=== PATIENT | male | born 1960 | race Caucasian/White ===

== ENCOUNTER 2022-09-23 07:57 | Inpatient (IN) ==
--- NOTE | 2022-09-23 09:00 | XRay Report ---
XR chest 1V portable HISTORY: 62 years-old Male fluid overload acute shortness of breath COMPARISON: None TECHNIQUE: AP view of the chest FINDINGS: Cardiac silhouette is mildly enlarged. No pneumothorax, pleural effusion, airspace consolidation or p ulmonary edema. Degenerative changes of the shoulders and spine. IMPRESSION: No acute process. ACT 112: Negative or not required by law. The above report was generated using voice recognition software. It may contain grammatical, syntax o r spelling errors. Electronically signed by: Daryl Miranda M.D. 09/23/2022 8:59 AM
[2022-09-23] MEDS ORDERED: FUROSEMIDE 40 MG/4 ML VIAL IV STA (09:13)
[2022-09-23 09:17] LABS: Basophils # (auto) 0.07 K/uL (0-0.2); Basophils % (auto) 0.8 %; Eosinophils # (auto) 0.22 K/uL (0-0.50); Eosinophils % (auto) 2.6 %; Hematocrit (blood only) 24.7 % (42.0-52.0); Immature Granulocytes # (auto) 0.04 K/uL (0.01-0.20); Immature Granulocytes % (auto) 0.5 %; Lymphocytes # (auto) 1.07 K/uL (1.2-3.4); Lymphocytes % (auto) 12.6 %; Mean Corpuscular Hemoglobin 26.7 pg (25.0-34.0); Mean Corpuscular Hgb Conc 32.4 g/dL (32.0-36.0); Mean Corpuscular Volume 82.3 fL (80.0-100.0); Monocytes # (auto) 1.06 K/uL (0.11-0.59); Monocytes % (auto) 12.5 %; Platelet Count 133 K/uL (130-400); RDW Coefficient of Variation 25.9 % (11.5-14.5); RDW Standard Deviation 76.2 fL (36.4-46.3); White Blood Count 8.46 K/ul (4.8-10.8)
[2022-09-23 09:21] LABS: Albumin Globulin Ratio 0.7 (0.9-2); Albumin Level 2.3 gm/dl (3.4-5.0); BUN Creatinine Ratio 15.4 (10-20); Bilirubin,Total 2.5 mg/dl (0.2-1.0); Globulin 3.4 gm/dl (2.5-4.0); Potassium 3.5 mmol/L (3.5-5.1); Total Protein 5.7 gm/dl (6.0-8.3)
[2022-09-23 09:45] LABS: Acanthocytes 1+; Anisocytosis Present; Echinocytes 1+
--- NOTE | 2022-09-23 09:50 | Emergency Department Note ---
Impression & Plan Decompensated hepatic cirrhosis, Dependent edema ED Provider Note CHIEF COMPLAINT: Swollen scrotum HISTORY OF PRESENT ILLNESS: This 62-year-old male patient with past medical history of alcoholic cirrhosis and ascites presents to the emergency department with complaints of scrotal swelling. The patient states he was up on a ladder for 4 hours yesterday attempting to hang spot lights. He did not think anything was unusual however upon getting undressed noticed significant scrotal edema. He denies any pain in the testicles or groin. Patient states he does normally take furosemide and spironolactone but was out of them for 2 weeks. He did restart them 48 hours ago. He denies fevers, abdominal pain, vomiting or diarrhea. He has not had any difficulty urinating. REVIEW OF SYSTEMS: A review of systems was performed with positives and pertinent negatives listed in the history of present illness. 10 systems were reviewed and are otherwise negative. ALLERGIES: see below MEDICATIONS: see below PMH: see below SOCIAL HISTORY: see below DDx: Decompensated cirrhosis of the liver, portal vein thrombus, DVT, fluid overload, congestive heart failure, testicular torsion, testicular mass, hydrocele among others PHYSICAL EXAM: Vital signs reviewed. General: Well-appearing 62 yo male, in no significant distress. HEENT: No scleral icterus, PERRLA, neck supple. Atraumatic. Cardiovascular: Regular rate and rhythm, no extra sounds. Pulmonary: Clear to auscultation bilaterally, normal work of breathing. Abdomen: Soft, nontender, distended, positive bowel sounds. Musculoskeletal: Atraumatic, moderate peripheral edema. : Normal external male genitals with markedly enlarged scrotum/edema. Nontender Neurologic: Patient awake alert and oriented x 3, speech is clear Skin: Warm, dry, no rash EMERGENCY DEPARTMENT COURSE/MDM: This patient was evaluated and appeared to be in no significant distress. External medical records were reviewed. IV access was obtained and laboratory work was drawn. Patient is noted to be in a normal sinus rhythm on the cardiac nurse specialist. He was given 40 mg of IV Lasix. Nursing staff said he was "thinking about" a Sweeney catheter. Patient's laboratory work is significant for a hemoglobin of 8, mildly elevated AST/ALT and a bilirubin of 2.5. INR is 1.5. I suspect the patient is suffering from decompensated cirrhosis of the liver secondary to his recent several weeks without his diuretics. Ultrasound of the right upper quadrant was performed to rule out portal vein thrombus which is negative. Ultrasound of the scrotum was also performed and reveals scrotal edema. Please see final read below. Patient was advised of the findings and plan for admission. Hospitalist service was contacted. MONITORING: An order for cardiac monitoring was placed and the patient is noted to be in a NSR at 77 beats per minute. RADIOLOGY: Chest x-ray to my interpretation reveals no focal lung consolidation or failure, otherwise defer to radiology Scrotal and right upper quadrant ultrasound as below. DISPOSITION: Admission Past Med/Surg History Medical History Decompensated hepatic cirrhosis Hx of fracture of patella Iron deficiency anemia Liver cirrhosis Right shoulder injury Surgical History Hx of appendectomy Social History Smoking Status: Never smoker Hx Alcohol Use: No Hx Substance Use: No Preferred Language: Occitan Communication Ability: Effective Assembling Fabricator Required: No Beliefs That Will Affect Care: None Current Living Situation: Family Feels Safe at Home: Yes Safety Concerns: Feels Safe At This Time Assistive Devices: Glasses Allergies Allergies Allergy/AdvReac Type Severity Reaction Status Date / Time No Known Allergies Allergy Verified 08/26/22 10:24 Home Meds Previous Rx's Medication Instructions Recorded furosemide 40 mg tablet 40 mg PO DAILY #30 tabs 09/26/22 spironolactone 100 mg tablet 100 mg PO DAILY #30 tabs 09/26/22 Results & Data (ED) Vital Signs Vital Signs - 24 hr 09/23/22 08:09 09/23/22 10:58 09/23/22 12:01 Temperature 36.6 C Temperature Source Temporal Artery Scan Pulse Rate 76 77 74 Pulse Rate from SpO2 Sensor Respiratory Rate 20 18 Respiratory Effort / Characteristics Non-Labored Spontaneous Respiratory Depth Normal Blood Pressure 127/72 139/77 Blood Pressure Mean 90 97 Pulse Oximetry 99 100 Oxygen Delivery Method Room Air Room Air Sepsis Recent Fever Within 48 Hours No Sepsis New/Unexplained Change in Mental Status N/A Sepsis Action Taken by Nursing No Action Required 09/23/22 12:00 09/23/22 13:02 09/23/22 13:30 Temperature Temperature Source Pulse Rate 74 76 75 Pulse Rate from SpO2 Sensor 74 75 74 Respiratory Rate 14 22 16 Respiratory Effort / Characteristics Respiratory Depth Blood Pressure 151/70 H 119/76 Blood Pressure Mean 97 90 Pulse Oximetry 100 100 100 Oxygen Delivery Method Sepsis Recent Fever Within 48 Hours Sepsis New/Unexplained Change in Mental Status Sepsis Action Taken by Nursing 09/23/22 14:00 Temperature Temperature Source Pulse Rate 72 Pulse Rate from SpO2 Sensor Respiratory Rate 14 Respiratory Effort / Characteristics Respiratory Depth Blood Pressure Blood Pressure Mean Pulse Oximetry 100 Oxygen Delivery Method Sepsis Recent Fever Within 48 Hours Sepsis New/Unexplained Change in Mental Status Sepsis Action Taken by [facility] Medications Current Medication List: was personally reviewed by la Laboratory Data Attestation: I reviewed the patient's lab results. 09/23/22 08:45 09/23/22 08:45 Lab Results 09/23/22 09/23/22 09/23/22 Range/Units 08:45 08:45 08:45 WBC 8.46 (4.8-10.8) K/ul RBC 3.00 L (4.70-6.10) M/uL Hgb 8.0 L (14.0-18.0) g/dl Hct 24.7 L (42.0-52.0) % MCV 82.3 (80.0-100.0) fL MCH 26.7 (25.0-34.0) pg MCHC 32.4 (32.0-36.0) g/dL RDW Std Deviation 76.2 H (36.4-46.3) fL RDW Coeff of Dean 25.9 H (11.5-14.5) % Plt Count 133 (130-400) K/uL MPV 11.0 (9.4-12.4) fL Immature Gran % (Auto) 0.5 % Neut % (Auto) 71.0 % Lymph % (Auto) 12.6 % Mckenzie % (Auto) 12.5 % Eos % (Auto) 2.6 % Baso % (Auto) 0.8 % Neut # (Auto) 6.00 (1.40-6.50) K/uL Lymph # (Auto) 1.07 L (1.2-3.4) K/uL Mckenzie # (Auto) 1.06 H (0.11-0.59) K/uL Eos # (Auto) 0.22 (0-0.50) K/uL Baso # (Auto) 0.07 (0-0.2) K/uL Immature Gran # (Auto) 0.04 (0.01-0.20) K/uL Anisocytosis Present Echinocytes 1+ Acanthocytes (Spur) 1+ PT 15.6 H (9.0-12.0) Seconds INR 1.5 H (0.9-1.1) APTT 31.4 H (21.0-31.0) Seconds PTT Ratio 1.1 Sodium 133 L (136-145) mmol/L Potassium 3.5 (3.5-5.1) mmol/L Chloride 104 (98-107) mmol/L Carbon Dioxide 22 (21-32) mmol/L Anion Gap 7 (3-11) BUN 19 (6-23) mg/dl Creatinine 1.23 (0.6-1.4) mg/dl Est Cr Clr Drug Dosing 87.0 ml/min Est GFR ( Amer) 73.0 ml/min Est GFR (Non-Af Amer) 63.0 ml/min BUN/Creatinine Ratio 15.4 (10-20) Glucose 118 H (70-99(Fasting)) mg/dl Calcium 8.0 L (8.6-10.3) mg/dl Total Bilirubin 2.5 H (0.2-1.0) mg/dl Direct Bilirubin 0.7 H (0-0.2) mg/dl AST 69 H (13-39) U/L ALT 26 (7-52) U/L Alkaline Phosphatase 133 H (34-104) U/L Total Protein 5.7 L (6.0-8.3) gm/dl Albumin 2.3 L (3.4-5.0) gm/dl Globulin 3.4 (2.5-4.0) gm/dl Albumin/Globulin Ratio 0.7 L (0.9-2) Lipase 66 (11-82) U/L Urine Color Urine Appearance (Clear) Urine pH (4.5-7.5) Ur Specific [place] (1.000-1.030) Urine Protein (Negative) Urine Glucose (UA) (Negative) Urine Ketones (Negative) Urine Blood (Negative) Urine Nitrite (Negative) Urine Bilirubin (Negative) Urine Urobilinogen (Negative) Ur Leukocyte Esterase (Negative) Urine WBC (Auto) (0-5) /hpf Urine RBC (Auto) (0-4) /hpf U Hyaline Cast (Auto) (0-5) /lpf U Epithel Cells (Auto) (0-5) /lpf Urine Bacteria (Auto) (Negative) Lyme Disease IgG Ab (Negative) Lyme Disease IgM Ab (Negative) SARS-CoV-2, RNA, NAAT (NEGATIVE) 09/23/22 09/23/22 09/23/22 Range/Units 08:45 08:50 10:20 WBC (4.8-10.8) K/ul RBC (4.70-6.10) M/uL Hgb (14.0-18.0) g/dl Hct (42.0-52.0) % MCV (80.0-100.0) fL MCH (25.0-34.0) pg MCHC (32.0-36.0) g/dL RDW Std Deviation (36.4-46.3) fL RDW Coeff of Dean (11.5-14.5) % Plt Count (130-400) K/uL MPV (9.4-12.4) fL Immature Gran % (Auto) % Neut % (Auto) % Lymph % (Auto) % Mckenzie % (Auto) % Eos % (Auto) % Baso % (Auto) % Neut # (Auto) (1.40-6.50) K/uL Lymph # (Auto) (1.2-3.4) K/uL Mckenzie # (Auto) (0.11-0.59) K/uL Eos # (Auto) (0-0.50) K/uL Baso # (Auto) (0-0.2) K/uL Immature Gran # (Auto) (0.01-0.20) K/uL Anisocytosis Echinocytes Acanthocytes (Spur) PT (9.0-12.0) Seconds INR (0.9-1.1) APTT (21.0-31.0) Seconds PTT Ratio Sodium (136-145) mmol/L Potassium (3.5-5.1) mmol/L Chloride (98-107) mmol/L Carbon Dioxide (21-32) mmol/L Anion Gap (3-11) BUN (6-23) mg/dl Creatinine (0.6-1.4) mg/dl Est Cr Clr Drug Dosing ml/min Est GFR ( Amer) ml/min Est GFR (Non-Af Amer) ml/min BUN/Creatinine Ratio (10-20) Glucose (70-99(Fasting)) mg/dl Calcium (8.6-10.3) mg/dl Total Bilirubin (0.2-1.0) mg/dl Direct Bilirubin (0-0.2) mg/dl AST (13-39) U/L ALT (7-52) U/L Alkaline Phosphatase (34-104) U/L Total Protein (6.0-8.3) gm/dl Albumin (3.4-5.0) gm/dl Globulin (2.5-4.0) gm/dl Albumin/Globulin Ratio (0.9-2) Lipase (11-82) U/L Urine Color Yellow Urine Appearance Clear (Clear) Urine pH 7.0 (4.5-7.5) Ur Specific [place] 1.005 (1.000-1.030) Urine Protein Negative (Negative) Urine Glucose (UA) Negative (Negative) Urine Ketones Negative (Negative) Urine Blood Trace H (Negative) Urine Nitrite Negative (Negative) Urine Bilirubin Negative (Negative) Urine Urobilinogen Negative (Negative) Ur Leukocyte Esterase Negative (Negative) Urine WBC (Auto) 0 (0-5) /hpf Urine RBC (Auto) 0-4 (0-4) /hpf U Hyaline Cast (Auto) 1-5 (0-5) /lpf U Epithel Cells (Auto) 5-10 H (0-5) /lpf Urine Bacteria (Auto) Negative (Negative) Lyme Disease IgG Ab Negative (Negative) Lyme Disease IgM Ab Negative (Negative) SARS-CoV-2, RNA, NAAT NEGATIVE (NEGATIVE) Administered Medications Discontinued Medications Furosemide (Furosemide 40 Mg/4 Ml Vial) 40 mg IV NOW STA Stop: 09/23/22 09:14 Last Admin: 09/23/22 09:26 Dose: 40 mg Documented By: MT Furosemide (Furosemide 40 Mg/4 Ml Vial) 40 mg IV DAILY CYNTHIA Stop: 10/24/22 08:59 Last Admin: 09/26/22 09:45 Dose: 40 mg Documented By: Admin: 09/25/22 08:14 Dose: 40 mg Documented By: Admin: 09/24/22 08:10 Dose: 40 mg Documented By: OO Albumin Human (Albumin 25%) 25 gm in 100 mls @ 50 mls/hr IV Q8H CYNTHIA Stop: 09/26/22 14:14 Last Infusion: 09/26/22 07:41 Dose: 0 mls/hr Documented By: Admin: 09/26/22 05:52 Dose: 50 mls/hr Documented By: Infusion: 09/26/22 00:04 Dose: 0 mls/hr Documented By: Admin: 09/25/22 22:04 Dose: 50 mls/hr Documented By: Infusion: 09/25/22 17:53 Dose: 0 mls/hr Documented By: Admin: 09/25/22 15:28 Dose: 50 mls/hr Documented By: Infusion: 09/25/22 08:10 Dose: 0 mls/hr Documented By: Admin: 09/25/22 06:06 Dose: 50 mls/hr Documented By: Infusion: 09/25/22 00:15 Dose: 0 mls/hr Documented By: Admin: 09/24/22 22:15 Dose: 50 mls/hr Documented By: Infusion: 09/24/22 16:27 Dose: 0 mls/hr Documented By: Admin: 09/24/22 14:12 Dose: 50 mls/hr Documented By: Infusion: 09/24/22 07:37 Dose: 0 mls/hr Documented By: Admin: 09/24/22 05:53 Dose: 50 mls/hr Documented By: Infusion: 09/24/22 00:15 Dose: 0 mls/hr Documented By: Admin: 09/23/22 22:15 Dose: 50 mls/hr Documented By: Infusion: 09/23/22 18:55 Dose: 0 mls/hr Documented By: Admin: 09/23/22 16:39 Dose: 50 mls/hr Documented By: ALN Iron Sucrose 200 mg/ Sodium (Chloride) 110 mls @ 220 mls/hr IV DAILY CYNTHIA Stop: 09/27/22 08:59 Last Infusion: 09/26/22 10:24 Dose: 0 mls/hr Documented By: Admin: 09/26/22 09:45 Dose: 220 mls/hr Documented By: Infusion: 09/25/22 11:24 Dose: 0 mls/hr Documented By: OTory Admin: 09/25/22 09:46 Dose: 220 mls/hr Documented By: Infusion: 09/24/22 16:27 Dose: 0 mls/hr Documented By: Admin: 09/24/22 15:49 Dose: 220 mls/hr Documented By: TRISTEN Albumin Human (Albumin 25%) 25 gm in 100 mls @ 50 mls/hr IV Q2H CYNTHIA Stop: 09/26/22 20:14 Last Infusion: 09/26/22 18:26 Dose: 0 mls/hr Documented By: Admin: 09/26/22 17:34 Dose: 80 mls/hr Documented By: Infusion: 09/26/22 17:34 Dose: 80 mls/hr Documented By: Infusion: 09/26/22 17:29 Dose: 80 mls/hr Documented By: Admin: 09/26/22 16:06 Dose: 50 mls/hr Documented By: SERGIO Magnesium Oxide (Magnesium Oxide 400 Mg Tab) 400 mg PO BID CYNTHIA Stop: 10/24/22 08:59 Last Admin: 09/26/22 09:45 Dose: 400 mg Documented By: Admin: 09/25/22 20:36 Dose: 400 mg Documented By: Admin: 09/25/22 08:13 Dose: 400 mg Documented By: OTory Admin: 09/24/22 20:17 Dose: 400 mg Documented By: Admin: 09/24/22 09:41 Dose: 400 mg Documented By: TRISTEN Potassium Chloride (Potassium Chloride Crtab 20 Meq Tabcr) 40 meq PO BID CYNTHIA Stop: 10/24/22 08:59 Last Admin: 09/25/22 08:12 Dose: 40 meq Documented By: OTory Admin: 09/24/22 20:17 Dose: 40 meq Documented By: Admin: 09/24/22 09:41 Dose: 40 meq Documented By: TRISTEN Spironolactone (Spironolactone 100 Mg Tab) 100 mg PO DAILY CYNTHIA Stop: 10/24/22 08:59 Last Admin: 09/26/22 09:45 Dose: 100 mg Documented By: Admin: 09/25/22 08:13 Dose: 100 mg Documented By: OTory Admin: 09/24/22 08:10 Dose: 100 mg Documented By: OO Imaging Data Radiologist's Impression: Scrotum Ultrasound 09/23/22 08:22 US scrotum/testicle CLINICAL HISTORY: swelling, ?hydrocele TECHNIQUE: Real-time sonographic images of the scrotal contents were obtained. Comparison: None available at the time of this dictation. FINDINGS: The right testicle measures 2.9 x 2.0 x 1.8 cm. The left testicle measures 2.7 x 2.0 x 1.[address] testes are uniform in echogenicity bilaterally. No focal intratesticular lesions are identified. The epididymal heads are unremarkable. There are no hydroceles. No varicoceles were seen. Scrotal edema and wall thickening is seen. IMPRESSION: Scrotal edema is seen. No underlying testicular abnormalities. ACT 112: Negative or not required by law. Electronically signed by: Josué Greco M.D. 09/23/2022 10:20 AM Chest X-Ray 09/23/22 08:23 XR chest 1V portable HISTORY: 62 years-old Male fluid overload acute shortness of breath COMPARISON: None TECHNIQUE: AP view of the chest FINDINGS: Cardiac silhouette is mildly enlarged. No pneumothorax, pleural effusion, airspace consolidation or pulmonary edema. Degenerative changes of the shoulders and spine. IMPRESSION: No acute process. ACT 112: Negative or not required by law. The above report was generated using voice recognition software. It may contain grammatical, syntax or spelling errors. Electronically signed by: Daryl Miranda M.D. 09/23/2022 8:59 AM Liver Ultrasound 09/23/22 09:12 US liver CLINICAL HISTORY: cirrhosis, ? portal vein thrombus COMPARISON STUDY: No previous studies for comparison. TECHNIQUE: Sonography of the right upper quadrant was performed. Color and duplex Doppler sonography of the main portal vein was performed. FINDINGS: The liver is somewhat diminutive and there is coarsening of hepatic echotexture with nodularity of the liver surface indicative of cirrhosis. No hepatic lesions are identified by sonography. The main portal vein is patent with appropriately directed flow. The pancreas was obscured by overlying bowel gas. Common bile duct measures 7 mm in caliber. No gallstones are noted. Moderate gallbladder wall thickening is noted. The gallbladder wall measures 7 mm in thickness. No sonographic Schwarz sign was elicited. There is no right hydronephrosis. Moderate right upper quadrant ascites is present. IMPRESSION: 1. Cirrhosis. Patent main portal vein with appropriately directed flow. Perihepatic ascites. 2. No gallstones. Gallbladder wall thickening, a nonspecific finding in the setting of cirrhosis. No sonographic Schwarz sign. No evidence for acute cholecystitis. 3. Borderline biliary ductal dilatation. ACT 112: Negative or not required by law. Electronically signed by: Lavon Stone M.D. 09/23/2022 10:18 AM Discharge Plan Visit Data Chief Complaint: Testicular Pain Stated Complaint: SWOLLEN TESTICLES ED Provider: Destiny Walker Discharge Problem: Decompensated hepatic cirrhosis, Dependent edema Patient Disposition: Admitted As Inpatient Discharge Instructions Interventions: ED Discharge Assessment Last Done: 09/23/22 14:55
[2022-09-23 10:10] LABS: INR 1.5 (0.9-1.1); Partial Thromboplastin Ratio 1.1; Partial Thromboplastin Time 31.4 Seconds (21.0-31.0); Prothrombin Time 15.6 Seconds (9.0-12.0)
--- NOTE | 2022-09-23 10:20 | Ultrasound Report ---
US liver CLINICAL HISTORY: cirrhosis, ? portal vein thrombus COMPARISON STUDY: No previous studies for comparison. TECHNIQUE: Sonography of the right upper quadrant was performed. Color and duplex Doppler sonography of the main portal vein was performed. FINDINGS: The liver is somewhat diminutive and there is coarsening of hepatic echotexture with nodula rity of the liver surface indicative of cirrhosis. No hepatic lesions are identified by sonography. T he main portal vein is patent with appropriately directed flow. The pancreas was obscured by overlyin g bowel gas. Common bile duct measures 7 mm in caliber. No gallstones are noted. Moderate gallbladder wall thickening is noted. The gallbladder wall measures 7 mm in thickness. No sonographic Schwarz sig n was elicited. There is no right hydronephrosis. Moderate right upper quadrant ascites is present. IMPRESSION: 1. Cirrhosis. Patent main portal vein with appropriately directed flow. Perihepatic ascites. 2. No gallstones. Gallbladder wall thickening, a nonspecific finding in the setting of cirrhosis. No sonographic Schwarz sign. No evidence for acute cholecystitis. 3. Borderline biliary ductal dilatation. ACT 112: Negative or not required by law. Electronically signed by: Lavon Stone M.D. 09/23/2022 10:18 AM
--- NOTE | 2022-09-23 10:21 | Ultrasound Report ---
US scrotum/testicle CLINICAL HISTORY: swelling, ?hydrocele TECHNIQUE: Real-time sonographic images of the scrotal contents were obtained. Comparison: None available at the time of this dictation. FINDINGS: The right testicle measures 2.9 x 2.0 x 1.8 cm. The left testicle measures 2.7 x 2.0 x 1.[address] te stes are uniform in echogenicity bilaterally. No focal intratesticular lesions are identified. The ep ididymal heads are unremarkable. There are no hydroceles. No varicoceles were seen. Scrotal edema an d wall thickening is seen. IMPRESSION: Scrotal edema is seen. No underlying testicular abnormalities. ACT 112: Negative or not required by law. Electronically signed by: Josué Greco M.D. 09/23/2022 10:20 AM
[2022-09-23 10:44] LABS: Appearance Urine Clear (Clear); Bacteria Urine Automated Negative (Negative); Bilirubin Urine Negative (Negative); Blood Urine Trace (Negative); Color Urine Yellow; Glucose Urine UA Negative (Negative); Ketones Urine Negative (Negative); Leukocyte Esterase Urine Negative (Negative); Nitrite Urine Negative (Negative); Protein Urine Negative (Negative); RBC Urine Automated 0-4 /hpf (0-4); Specific Gravity Urine 1.005 (1.000-1.030); Urobilinogen Urine Negative (Negative); WBC Urine Automated 0 /hpf (0-5)
--- NOTE | 2022-09-23 12:24 | History & Physical Report ---
Date of Service September 23, 2022 Assessment & Plan (1) Decompensated hepatic cirrhosis: (2) Iron deficiency anemia: Plan 62 year old that presents with scrotal swelling x24 hours. Has not taken diuretics x2 weeks due to not obtaining refills of Lasix 80 mg daily/Spirinolactone 100 mg daily. Moderate ascites. No asterixisDoes not appear toxic. Hemo stable. Lasix 40 mg IV given in ED. Will resume home meds Low Na+ diet, GI consult. Decompensated hepatic cirrhosis: Weakness: Admit to PCU Child Herron Score: Class C 10 points. MELD score 19 No Encephalopathy Total Bili today 2.5; check direct Albumin 2.3, most recent albumin 08/23/2022 2.5 INR 1.5 Moderate ascites; GI consult + abdominal US for possible therapeutic tap Albumin 25% IV TID x2 days as recc by GI. Check for Lyme's due to increased duffy exposure Lasix 40 mg IV given in ED; resume home dose in AM with Aldactone Low Na+ diet Iron Deficiency Anemia: Hgb: 8.0; baseline 11.3 from 2019. Hgb 6.8 on 06/30 and received 2 UPRBC at [facility]. No CP or SOB at that time. 08/23/22: TIBC: 305, transferrin 5, ferritin 11, vitamin B12 1221 T/C done, but no signs of active bleeding Plan was for endoscopy/colonoscopy 09/30/22 as OPT Disposition: PCP: Dr. Farris Code Status: Full code VTE Prophylaxis: TEDS and SCDs for now I spent a total of 87 minutes coordinating, documenting, and providing care for this patient excluding time spent in the performance of separately billed services. All of the aforementioned completed while collaborating with the assigned attending physician for a full treatment plan. Please see their addendum for further details. History of Present Illness Chief Complaint: testicular pain Primary Care Provider: Jarocho Chaudhry MD Mr. Lopez is a 62 year old male that presents to the ED today with complaints of testicular pain that started this morning. He stated that he has not taken his diuretics x2 weeks due to not obtaining refills of Lasix 80 mg daily/Spirinolactone 100 mg daily. He presents with moderate ascites. No asterixis and does not appear toxic. He is hemodynamically stable. Lasix 40 mg IV given in ED. Patient does have a medical history that includes liver cirrhosis. Patient at baseline takes Furosemide and as home spironolactone as home medications but has been non compliant. He was previously followed by a PCP in [place]. Follows with GI at [facility]. States he is not drinking or using Tylenol or ibuprofen and reports his last alcohol use being October.He is scheduled for EGD and [place] on 10/03/22. He denies blood in stool, denies tarry/black stools. No recent vomiting. Most recent colonoscopy 06/2019: umbilical hernia with gangrene noted rather small and it was decided in light of his liver disease better for expectant management. Diastasis of rectus abdominis likely secondary to ascites from liver disease Pt reports upper and lower scope planned for later this month. Most recent ECHO from 06/2022: Normal LV wall motion, EF 60 to 64%, grade 1 diastolic dysfunction, aortic root borderline enlarged 3.8 cm. In the ED, Sodium 133, K+ 3.5, INR 1.5, AST 69, ALT 26, alk phos 133, T Bili 2.5, Albumin 2.3. Does not appear toxic. Hemodynamically stable. Last alcohol use October 2021. No tobacco use; reports cocaine use to attending provider. Hgb: 8.0; baseline 11.3 from 2019. Hgb 6.8 on 06/30 and received 2 UPRBC at [facility]. No CP or SOB at that time. Scrotum ultrasound results: The right testicle measures 2.9 x 2.0 x 1.8 cm. The left testicle measures 2.7 x 2.0 x 1.5 cm. The testes are uniform in echogenicity bilaterally. No focal intratesticular lesions are identified. The epididymal heads are unremarkable. There are no hydroceles. No varicoceles were seen. Scrotal edema and wall thickening is seen. Liver ultrasound results: Cirrhosis. Patent main portal vein with appropriately directed flow. Perihepatic ascites, without gallstones. Gallbladder wall thickening, a nonspecific finding in the setting of cirrhosis. No sonographic Schwarz sign. No evidence for acute cholecystitis. Borderline biliary ductal dilatation. CXR negative for acute cardiopulmonary disease. Pt denies ARMENTA, dizziness, SOB, chest pain, palpitations, abdominal pain or tenderness, recent falls or trauma, ejaculation pain. On examination, patient with moderate ascites LE up to hip with abdominal distension. Some ecchymosis on R hip and B/L forearms. INR 1.5. Discussed with India Barreto from GI and plan for abdominal US and therapeutic paracentesis. Patient will be admitted for further evaluation and management. Please see A/P for further details. Allergies Allergy/AdvReac Type Severity Reaction Status Date / Time No Known Allergies Allergy Verified 08/26/22 10:24 Home Medications Medication Instructions Recorded Confirmed Type spironolactone 100 mg tablet 100 mg PO DAILY 08/26/22 09/23/22 History furosemide 40 mg tablet 80 mg PO DAILY 09/23/22 09/23/22 History Past Med/Surg History Medical History (Updated 09/23/22 @ 12:40 by RONNIE Ramos) Decompensated hepatic cirrhosis Hx of fracture of patella Iron deficiency anemia Liver cirrhosis Right shoulder injury Surgical History Hx of appendectomy Social History Smoking Status: Never smoker Hx Alcohol Use: No Hx Substance Use: No Preferred Language: Syriac Communication Ability: Effective Real Time Operator Required: No Beliefs That Will Affect Care: None Current Living Situation: Family Feels Safe at Home: Yes Safety Concerns: Feels Safe At This Time Assistive Devices: Glasses Review of Systems Review of Systems: Neuro: (-) Falls, trauma, slurred speech HEENT: (-) ARMENTA, dizziness, dysphagia, visual or auditory changes CV: (-) CP, palpitations, swelling Resp: (-) SOB GI: (-) appetite changes, N/V/D, bowel changes : (-) urinary changes Skin: (-) rashes Psych: (-) anxiety, depression Physical Exam Physical Exam: Neuro: AAOx4, PERRLA, no aphagia, memory changes, CNII-XII grossly intact. No asterixis HEENT: head normocephalic, moist mucus membranes CV: S1/S2, (-) M/G/R, (+) edema LE, into hips and abdominal with scrotal swelling, cap refill < 3 seconds Resp: Lungs CTA in all tolbert. On RA GI: Abdomen Large, distended with ascites. Ax4 bowel sounds, (-) CVA tenderness Musculoskeletal: 5/5 B/L UE strength, 5/5 B/L LE strength. No gait disturbance Skin: (-) rashes , (-) erythema. (+) ecchymosis right hip and bilateral forearms (spontaneous), no falls Psych: euthymic mood Results & Data Results & Data Vital Signs (Past 12 Hours) Vital Signs Temp Pulse Resp BP Pulse Ox O2 Del Method 09/23/22 12:01 74 09/23/22 10:58 77 18 139/77 100 Room Air 09/23/22 08:09 36.6 C 76 20 127/72 99 Room Air Laboratory Results Short CBC 09/23/22 Range/Units 08:45 WBC 8.46 (4.8-10.8) K/ul Hgb 8.0 L (14.0-18.0) g/dl Hct 24.7 L (42.0-52.0) % Plt Count 133 (130-400) K/uL BMP 09/23/22 08:45 Sodium 133 L Potassium 3.5 Chloride 104 Carbon Dioxide 22 BUN 19 Creatinine 1.23 Glucose 118 H Calcium 8.0 L Liver Function 09/23/22 Range/Units 08:45 Total Bilirubin 2.5 H (0.2-1.0) mg/dl AST 69 H (13-39) U/L ALT 26 (7-52) U/L Alkaline Phosphatase 133 H (34-104) U/L Albumin 2.3 L (3.4-5.0) gm/dl Urine 09/23/22 Range/Units 10:20 Urine Color Yellow Urine Appearance Clear (Clear) Urine pH 7.0 (4.5-7.5) Ur Specific [place] 1.005 (1.000-1.030) Urine Protein Negative (Negative) Urine Glucose (UA) Negative (Negative) Diagnostic Findings Scrotum Ultrasound 09/23/22 08:22 US scrotum/testicle CLINICAL HISTORY: swelling, ?hydrocele TECHNIQUE: Real-time sonographic images of the scrotal contents were obtained. Comparison: None available at the time of this dictation. FINDINGS: The right testicle measures 2.9 x 2.0 x 1.8 cm. The left testicle measures 2.7 x 2.0 x 1.[address] testes are uniform in echogenicity bilaterally. No focal intratesticular lesions are identified. The epididymal heads are unremarkable. There are no hydroceles. No varicoceles were seen. Scrotal edema and wall thickening is seen. IMPRESSION: Scrotal edema is seen. No underlying testicular abnormalities. ACT 112: Negative or not required by law. Electronically signed by: Josué Greco M.D. 09/23/2022 10:20 AM Chest X-Ray 09/23/22 08:23 XR chest 1V portable HISTORY: 62 years-old Male fluid overload acute shortness of breath COMPARISON: None TECHNIQUE: AP view of the chest FINDINGS: Cardiac silhouette is mildly enlarged. No pneumothorax, pleural effusion, a irspace consolidation or pulmonary edema. Degenerative changes of the shoulders and spine. IMPRESSION: No acute process. ACT 112: Negative or not required by law. The above report was generated using voice recognition software. It may contain grammatical, syntax or spelling errors. Electronically signed by: Daryl Miranda M.D. 09/23/2022 8:59 AM Liver Ultrasound 09/23/22 09:12 US liver CLINICAL HISTORY: cirrhosis, ? portal vein thrombus COMPARISON STUDY: No previous studies for comparison. TECHNIQUE: Sonography of the right upper quadrant was performed. Color and duplex Doppler sonography of the main portal vein was performed. FINDINGS: The liver is somewhat diminutive and there is coarsening of hepatic echotexture with nodularity of the liver surface indicative of cirrhosis. No hepatic lesions are identified by sonography. The main portal vein is patent with appropriately directed flow. The pancreas was obscured by overlying bowel gas. Common bile duct measures 7 mm in caliber. No gallstones are noted. Moderate gallbladder wall thickening is noted. The gallbladder wall measures 7 mm in thickness. No sonographic Schwarz sign was elicited. There is no right hydronephrosis. Moderate right upper quadrant ascites is present. IMPRESSION: 1. Cirrhosis. Patent main portal vein with appropriately directed flow. Perihepatic ascites. 2. No gallstones. Gallbladder wall thickening, a nonspecific finding in the setting of cirrhosis. No sonographic Schwarz sign. No evidence for acute cholecystitis. 3. Borderline biliary ductal dilatation. ACT 112: Negative or not required by law. Electronically signed by: Lavon Stone M.D. 09/23/2022 10:18 AM Code Status & VTE Plan Code Status Full Code in the event of cardiac or respiratory arrest VTE Prophylaxis Plan VTE Prophylaxis will be ordered: Yes Supervising Physician Co-Signing Physician Notes I have seen and examined the patient and have discussed the case with the provider above. I agree with the assessment and plan as stated. I have seen and examined the patient and have discussed the case with the provider above. I agree with the assessment and plan as stated with the following exceptions. 62 yo cirrhotic man presents with acute testicular swelling and generalized swelling and dyspnea on exertion progressing over the past two weeks 2/2 noncompliance with medication. Patient reports not having any lasix/meds during this time. Denies chest pain, fevers, chills, abdominal pain and no testicular pain present. 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 No encephalopathy is present. He is with his grown son who lives a couple of hours away and had to drive to pick him up and bring him here for evaluation. The patient states that he did not call 911 because "they would have taken me to [place] and I didn't want to go there." Patient reports not driving and we discussed the mail order option through [employer] so he doesn't run out of medications in the future. He verbalized understanding and will speak with his PCP about this. He was given Lasix 40mg IV in the ER today and urinated "only three small amounts." We didn't talk about recent alcohol intake, but he did offer that he did cocaine recently. No other drug use reported. On exam he is mentating clearly and is hemodynamically stable and afebrile. He is oxygenating 100% on room air and not demonstrating increased respiratory effort. He appears deconditioned and is morbidly obese with a clearly protuberant abdomen. ENT exam unremarkable. MMM. Lungs are clear to auscultation throughout. CV exam reveals S1/2 heard without murmur, regular rate and rhythm. Abdomen is protuberant with no tenderness to palpation. Nondistended. 2+ pitting edema noted in bilateral flanks and on skin of abdomen. 1+ pitting edema in lower extremities. No gross neuromuscular deficits noted. Regular quadrant ultrasound reveals cirrhosis with a patent main portal vein and perihepatic ascites. No gallstones are seen with gallbladder wall thickening and a borderline biliary ductal dilation. Chest x-ray reveals no acute process. Scrotal ultrasound performed reveals scrotal edema with no evidence of hydrocele, varicoceles or other intratesticular lesions. Labwork reveals anemia (12/01.7), INR 1.5, Na 133, K 3.5, Creat 1.23, TB 2.5, AST 69, ALT 26. 1. Decompensated cirrhosis with hyperbilirubinemia and ascites 2. Noncompliance with medication 3. Anemia 4. Cocaine use 62 yo M with known h/o ascites presents with weight gain after being out of his lasix for the past two weeks. Weight gain and scrotal swelling likely 2/2 noncompliance with diuretics in the setting of progressed liver cirrhosis with decompensation. Cont with lasix IV for now. Restart Lasix and aldactone per home regimen. No clear infectious symptoms that would be indicative of SBP at this time. Consult to gastroenterology, appreciate recs. Consideration being given for diagnostic paracentesis, defer to GI team. DO Brenton
--- NOTE | 2022-09-23 12:56 | Communication Note ---
Date of Service: September 23, 2022 I have seen and examined the patient and have discussed the case with the provider above. I agree with the assessment and plan as stated with the following exceptions. 62 yo cirrhotic man presents with acute testicular swelling and generalized swelling and dyspnea on exertion progressing over the past two weeks 2/2 noncompliance with medication. Patient reports not having any lasix/meds during this time. Denies chest pain, fevers, chills, abdominal pain and no testicular pain present. 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 No encephalopathy is present. He is with his grown son who lives a couple of hours away and had to drive to pick him up and bring him here for evaluation. The patient states that he did not call 911 because "they would have taken me to [place] and I didn't want to go there." Patient reports not driving and we discussed the mail order option through [employer] so he doesn't run out of medications in the future. He verbalized understanding and will speak with his PCP about this. He was given Lasix 40mg IV in the ER today and urinated "only three small amounts." We didn't talk about recent alcohol intake, but he did offer that he did cocaine recently. No other drug use reported. On exam he is mentating clearly and is hemodynamically stable and afebrile. He is oxygenating 100% on room air and not demonstrating increased respiratory effort. He appears deconditioned and is morbidly obese with a clearly protuberant abdomen. ENT exam unremarkable. MMM. Lungs are clear to auscultation throughout. CV exam reveals S1/2 heard without murmur, regular rate and rhythm. Abdomen is protuberant with no tenderness to palpation. Nondistended. 2+ pitting edema noted in bilateral flanks and on skin of abdomen. 1+ pitting edema in lower extremities. No gross neuromuscular deficits noted. Regular quadrant ultrasound reveals cirrhosis with a patent main portal vein and perihepatic ascites. No gallstones are seen with gallbladder wall thickening and a borderline biliary ductal dilation. Chest x-ray reveals no acute process. Scrotal ultrasound performed reveals scrotal edema with no evidence of hydrocele, varicoceles or other intratesticular lesions. Labwork reveals anemia (8/24.7), INR 1.5, Na 133, K 3.5, Creat 1.23, TB 2.5, AST 69, ALT 26. 1. Decompensated cirrhosis with hyperbilirubinemia and ascites 2. Noncompliance with medication 3. Anemia 4. Cocaine use 62 yo M with known h/o ascites presents with weight gain after being out of his lasix for the past two weeks. Weight gain and scrotal swelling likely 2/2 noncompliance. Cont with lasix IV for now. Restart Lasix and aldactone per home regimen. No clear infectious symptoms that would be indicative of SBP at this time. Consult to gastroenterology, appreciate recs. Consideration being given for diagnostic paracentesis, defer to GI team. DO Brenton
[2022-09-23 13:23] LABS: Bilirubin Direct 0.7 mg/dl (0-0.2)
--- NOTE | 2022-09-23 13:31 | Gastrointestinal Consultation ---
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 low - Agree w/ IV lasix and PO Aldactone to start tomorrow - Start albumin 25% 25G TID x 2 days - Low NA diet, less than 2G daily - Echo completed as an OP in 2022 - Diagnostic and therapeutic paracentesis - Send cell count, culture, - Send protein/albumin - Send cytology HCC screening due 10/2022 Avoid liver toxins including over the counter herbal supplements May take Acetaminophen up to 2 grams a day Avoid NSAIDS due to increased risk of GI bleeding and fluid retention Avoid all alcohol Avoid benzodiazepines and opiate pain medications due to risk of precipitating HE OP EGD/Colonoscopy Thank you for allowing us to participate in the care of this patient. Please call with any acute changes, questions or concerns. Please see addendum below with additional recommendation from my supervising physician. Supervising Physician Co-Signing Physician Notes Attending attestation I have seen, examined this patient, and agree with the findings and above by our mid-level provider RONNIE Mantilla, with the following additions: Patient with volume overload, little concern of SBP, agree with diruesis, tap, and nutrition Outpt follow up History of Present Illness Reason for Consultation: ascites, edema Requesting Physician: Brenton Attending Physician: Brenton History of Present Illness 62 year old male with history of decompensated alcohol cirrhosis ETOH free since October 2021 c/b ascites and LE edema admitted through the ED with edema, ascites. GI was asked to evaluate. Pt was seen and evaluated, chart reviewed. Son at bedside. Notes he was doing fairly well until about 2 weeks ago. He ran out of his Lasix/Aldactone and did not have any transportation to get medications refilled. He notes he gradually developed lower extremity edema, abdominal distention and scrotal edema over this time. No abd pain but some abd tightness. No nausea, vomiting. Tolerating PO but only eats once daily. Does not calculate his sodium intake. Moving bowels well - once daily. No black or bloody stools. Has been using some NSAIDs. No Tylenol use. ABD US 2022:Nonspecific gallbladder wall thickening and element of Maranda cholecystic fluid remonstrated as discussed above.Hepatomegaly and ultrasound findings compatible with 's clinical diagnosis of cirrhosis.Splenomegaly. fluid as discussed. EF 2022: 60% Decompensations: Varices: unknown Ascites: yes SBP: no HRS: no HE: no HCC: no Screening: EGD: due, scheduled 10/06 Colonoscopy: due, schedule 10/06 Liver imagin04/2022- no liver lesions Review of systems: Allergies Allergy/AdvReac Type Severity Reaction Status Date / Time No Known Allergies Allergy Verified 08/26/22 10:24 Home Medications Medication Instructions Recorded Confirmed Type spironolactone 100 mg tablet 100 mg PO DAILY 08/26/22 09/23/22 History furosemide 40 mg tablet 80 mg PO DAILY 09/23/22 09/23/22 History Patient History Medical History (Updated 09/23/22 @ 12:40 by RONNIE Ramos) Decompensated hepatic cirrhosis Hx of fracture of patella Iron deficiency anemia Liver cirrhosis Right shoulder injury Surgical History Hx of appendectomy Social History Smoking Status: Former smoker Preferred Language: Wolof Feels Safe at Home: Yes Review of Systems Review of Systems: All systems reviewed & are unremarkable except as noted in HPI & below Physical Exam Constitutional: WD/WN, vitals as above Respiratory: normal respiratory effort, lungs clear to auscultation Cardiovascular: Rate/Rhythm: regular rate and regular rhythm Extremities: + edema (bilateral, pitting to knee) Gastrointestinal (Abdomen): Inspection/Auscultation: abdomen normal to inspection, + abdomen distended and normal bowel sounds Percussion/Palpation: abdomen soft and + ascites; abdomen nontender and no guarding Skin: no rashes, warm and dry Results & Data Vital Signs (Past 12 Hours) Vital Signs Temp Pulse Resp BP Pulse Ox O2 Del Method 09/23/22 12:01 74 09/23/22 10:58 77 18 139/77 100 Room Air 09/23/22 08:09 36.6 C 76 20 127/72 99 Room Air Laboratory Results 09/23/22 09/23/22 09/23/22 Range/Units 10:20 08:50 08:45 WBC (4.8-10.8) K/ul RBC (4.70-6.10) M/uL Hgb (14.0-18.0) g/dl Hct (42.0-52.0) % MCV (80.0-100.0) fL MCH (25.0-34.0) pg MCHC (32.0-36.0) g/dL RDW Std Deviation (36.4-46.3) fL RDW Coeff of Dean (11.5-14.5) % Plt Count (130-400) K/uL MPV (9.4-12.4) fL Immature Gran % (Auto) % Neut % (Auto) % Lymph % (Auto) % Bates % (Auto) % Eos % (Auto) % Baso % (Auto) % Neut # (Auto) (1.40-6.50) K/uL Lymph # (Auto) (1.2-3.4) K/uL Bates # (Auto) (0.11-0.59) K/uL Eos # (Auto) (0-0.50) K/uL Baso # (Auto) (0-0.2) K/uL Immature Gran # (Auto) (0.01-0.20) K/uL Anisocytosis Echinocytes Acanthocytes (Spur) PT (9.0-12.0) Seconds INR (0.9-1.1) APTT (21.0-31.0) Seconds PTT Ratio Sodium (136-145) mmol/L Potassium (3.5-5.1) mmol/L Chloride (98-107) mmol/L Carbon Dioxide (21-32) mmol/L Anion Gap (3-11) BUN (6-23) mg/dl Creatinine (0.6-1.4) mg/dl Est Cr Clr Drug Dosing ml/min Est GFR ( Amer) ml/min Est GFR (Non-Af Amer) ml/min BUN/Creatinine Ratio (10-20) Glucose (70-99(Fasting)) mg/dl Calcium (8.6-10.3) mg/dl Total Bilirubin (0.2-1.0) mg/dl Direct Bilirubin (0-0.2) mg/dl AST (13-39) U/L ALT (7-52) U/L Alkaline Phosphatase (34-104) U/L Total Protein (6.0-8.3) gm/dl Albumin (3.4-5.0) gm/dl Globulin (2.5-4.0) gm/dl Albumin/Globulin Ratio (0.9-2) Lipase (11-82) U/L Urine Color Yellow Urine Appearance Clear (Clear) Urine pH 7.0 (4.5-7.5) Ur Specific [place] 1.005 (1.000-1.030) Urine Protein Negative (Negative) Urine Glucose (UA) Negative (Negative) Urine Ketones Negative (Negative) Urine Blood Trace H (Negative) Urine Nitrite Negative (Negative) Urine Bilirubin Negative (Negative) Urine Urobilinogen Negative (Negative) Ur Leukocyte Esterase Negative (Negative) Urine WBC (Auto) 0 (0-5) /hpf Urine RBC (Auto) 0-4 (0-4) /hpf U Hyaline Cast (Auto) 1-5 (0-5) /lpf U Epithel Cells (Auto) 5-10 H (0-5) /lpf Urine Bacteria (Auto) Negative (Negative) Lyme Disease IgG Ab Pending Lyme Disease IgM Ab Pending SARS-CoV-2, RNA, NAAT NEGATIVE (NEGATIVE) 09/23/22 09/23/22 09/23/22 Range/Units 08:45 08:45 08:45 WBC 8.46 (4.8-10.8) K/ul RBC 3.00 L (4.70-6.10) M/uL Hgb 8.0 L (14.0-18.0) g/dl Hct 24.7 L (42.0-52.0) % MCV 82.3 (80.0-100.0) fL MCH 26.7 (25.0-34.0) pg MCHC 32.4 (32.0-36.0) g/dL RDW Std Deviation 76.2 H (36.4-46.3) fL RDW Coeff of Dean 25.9 H (11.5-14.5) % Plt Count 133 (130-400) K/uL MPV 11.0 (9.4-12.4) fL Immature Gran % (Auto) 0.5 % Neut % (Auto) 71.0 % Lymph % (Auto) 12.6 % Bates % (Auto) 12.5 % Eos % (Auto) 2.6 % Baso % (Auto) 0.8 % Neut # (Auto) 6.00 (1.40-6.50) K/uL Lymph # (Auto) 1.07 L (1.2-3.4) K/uL Bates # (Auto) 1.06 H (0.11-0.59) K/uL Eos # (Auto) 0.22 (0-0.50) K/uL Baso # (Auto) 0.07 (0-0.2) K/uL Immature Gran # (Auto) 0.04 (0.01-0.20) K/uL Anisocytosis Present Echinocytes 1+ Acanthocytes (Spur) 1+ PT 15.6 H (9.0-12.0) Seconds INR 1.5 H (0.9-1.1) APTT 31.4 H (21.0-31.0) Seconds PTT Ratio 1.1 Sodium 133 L (136-145) mmol/L Potassium 3.5 (3.5-5.1) mmol/L Chloride 104 (98-107) mmol/L Carbon Dioxide 22 (21-32) mmol/L Anion Gap 7 (3-11) BUN 19 (6-23) mg/dl Creatinine 1.23 (0.6-1.4) mg/dl Est Cr Clr Drug Dosing 87.0 ml/min Est GFR ( Amer) 73.0 ml/min Est GFR (Non-Af Amer) 63.0 ml/min BUN/Creatinine Ratio 15.4 (10-20) Glucose 118 H (70-99(Fasting)) mg/dl Calcium 8.0 L (8.6-10.3) mg/dl Total Bilirubin 2.5 H (0.2-1.0) mg/dl Direct Bilirubin 0.7 H (0-0.2) mg/dl AST 69 H (13-39) U/L ALT 26 (7-52) U/L Alkaline Phosphatase 133 H (34-104) U/L Total Protein 5.7 L (6.0-8.3) gm/dl Albumin 2.3 L (3.4-5.0) gm/dl Globulin 3.4 (2.5-4.0) gm/dl Albumin/Globulin Ratio 0.7 L (0.9-2) Lipase 66 (11-82) U/L Urine Color Urine Appearance (Clear) Urine pH (4.5-7.5) Ur Specific [place] (1.000-1.030) Urine Protein (Negative) Urine Glucose (UA) (Negative) Urine Ketones (Negative) Urine Blood (Negative) Urine Nitrite (Negative) Urine Bilirubin (Negative) Urine Urobilinogen (Negative) Ur Leukocyte Esterase (Negative) Urine WBC (Auto) (0-5) /hpf Urine RBC (Auto) (0-4) /hpf U Hyaline Cast (Auto) (0-5) /lpf U Epithel Cells (Auto) (0-5) /lpf Urine Bacteria (Auto) (Negative) Lyme Disease IgG Ab Lyme Disease IgM Ab SARS-CoV-2, RNA, NAAT (NEGATIVE)
[2022-09-23 14:10] LABS: Lyme Ab IgG w/WB Rflx Negative (Negative); Lyme Ab IgM w/WB Rflx Negative (Negative)
[2022-09-23] MEDS ORDERED: ALBUMIN 25% 12.5 GM/50 ML VIAL IV ONE (14:15)
[2022-09-23] MEDS ORDERED: ACETAMINOPHEN 500 MG TAB PO PRN (15:31)
[2022-09-23] MEDS ORDERED: POLYETHYLENE (MIRALAX) 17 GM PACK PO PRN (15:31)
[2022-09-23] MEDS: ALBUMIN 25% 25 GM/100 ML VIAL IV SCH ×2 (16:39→22:15)
[2022-09-24] MEDS: ALBUMIN 25% 25 GM/100 ML VIAL IV SCH ×3 (05:53→22:15)
[2022-09-24 06:49] LABS: INR 1.7 (0.9-1.1); Prothrombin Time 17.7 Seconds (9.0-12.0)
[2022-09-24 06:51] LABS: Albumin Globulin Ratio 0.8 (0.9-2); Albumin Level 2.1 gm/dl (3.4-5.0); BUN Creatinine Ratio 15.5 (10-20); Bilirubin,Total 1.9 mg/dl (0.2-1.0); Est GFR (African American) 78.3 ml/min; Est GFR (Non-African American) 67.6 ml/min; Globulin 2.7 gm/dl (2.5-4.0); Magnesium 1.6 mg/dl (1.7-2.4); Potassium 3.4 mmol/L (3.5-5.1); Total Protein 4.8 gm/dl (6.0-8.3)
[2022-09-24 07:27] LABS: Hematocrit (blood only) 22.9 % (42.0-52.0); Hemoglobin 7.5 g/dl (14.0-18.0); Mean Corpuscular Hemoglobin 27.6 pg (25.0-34.0); Mean Corpuscular Hgb Conc 32.8 g/dL (32.0-36.0); Mean Corpuscular Volume 84.2 fL (80.0-100.0); Mean Platelet Volume 10.3 fL (9.4-12.4); Platelet Count 93 K/uL (130-400); Platelet Estimate Decreased (Normal); RDW Coefficient of Variation 25.9 % (11.5-14.5); Red Blood Count 2.72 M/uL (4.70-6.10); White Blood Count 5.13 K/ul (4.8-10.8)
[2022-09-24] MEDS: FUROSEMIDE 40 MG/4 ML VIAL IV SCH (08:10)
[2022-09-24] MEDS: SPIRONOLACTONE 100 MG TAB PO SCH (08:10)
--- NOTE | 2022-09-24 09:06 | Gastroenterology Progress Note ---
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 - Albumin low - Agree w/ IV lasix and PO Aldactone - Albumin 25% 25G TID x 2 days - Low NA diet, less than 2G daily - Echo completed as an OP in 2022 - Diagnostic and therapeutic paracentesis - Send cell count, culture, - Send protein/albumin - Send cytology HCC screening due 10/2022 Avoid liver toxins including over the counter herbal supplements May take Acetaminophen up to 2 grams a day Avoid NSAIDS due to increased risk of GI bleeding and fluid retention Avoid all alcohol Avoid benzodiazepines and opiate pain medications due to risk of precipitating HE OP EGD/Colonoscopy Admission and Anticipated Discharge Date Admission Date: September 23, 2022 Subjective Feels well, no complaints except being hungry Physical Exam Physical Exam: A and O x 3 ALVARADO NAD RRR CTABL Nabs/soft/nt/ansarca 3+ Edema No asterixis Results & Data Vital Signs (Past 12 Hours) Vital Signs Temp Pulse Pulse Pulse Resp BP Pulse Ox 09/24/22 07:12 36.8 C 72 19 112/53 L 97 09/24/22 03:35 37.3 C 66 16 108/62 96 09/23/22 21:56 74 09/23/22 23:17 37.3 C 78 18 127/83 97 O2 Del Method 09/24/22 07:12 Room Air 09/24/22 03:35 Room Air 09/23/22 21:56 09/23/22 23:17 Room Air
[2022-09-24] MEDS: POTASSIUM CHLORIDE CRTAB 20 MEQ TABCR PO SCH ×2 (09:41→20:17)
[2022-09-24] MEDS: MAGNESIUM OXIDE 400 MG TAB PO SCH ×2 (09:41→20:17)
--- NOTE | 2022-09-24 13:06 | Hospitalist Progress Note ---
Date of Service September 24, 2022 Assessment & Plan (1) Decompensated hepatic cirrhosis: (2) Iron deficiency anemia: Plan 62 year old that presents with scrotal swelling x24 hours. Has not taken diuretics x2 weeks due to not obtaining refills of Lasix 80 mg daily/Spirinolactone 100 mg daily. Moderate ascites. No asterixis. Does not appear toxic. Admitted for further management of decompensated cirrhosis with ascites and scrotal edema Decompensated hepatic cirrhosis with ascites and scrotal edema in setting of hypoalbuminemia and hypoproteinemia: Child Herron Score: Class C 10 points. MELD score 19 Last alcohol use October 2021 No evidence of hepatic encephalopathy or SBP. Labs reviewed. Seen by GI and recommendations as noted -Continue IV albumin for 2 days -Continue Lasix/Aldactone, continue I&O's and daily weight -Plan for diagnostic and therapeutic paracentesis on Monday-patient never had any paracentesis done -Avoid alcohol, NSAIDs, liver toxins including [id number] herbal supplements, benzos and opiates Iron Deficiency Anemia: Hgb: 8.0; baseline 11.3 from 2019. Hgb 6.8 on 06/30 and received 2 UPRBC at [facility]. No CP or SOB at that time. 08/23/22: TIBC: 305, transferrin 5, ferritin 11, vitamin B12 1221 Hemoglobin down to 7.5. No signs of bleeding. Will start on iron transfusion D1. Plan for endoscopy/colonoscopy 09/30/22 as OPT Hypokalemia-repleted. Recheck in a.m. Hypomagnesemia-repleted, recheck in a.m. Thrombocytopenia/coagulopathy due to liver cirrhosis-relatively stable. Will monitor Disposition: Continue current level of care with diuretics with plans for paracentesis on Monday VTE Prophylaxis: TEDS and SCDs for now Admission and Anticipated Discharge Date Admission Date: September 23, 2022 Subjective Patient was seen and examined at bedside. He denies any new issues. Denies any fever, chills, chest pain, abdominal pain, nausea or vomiting. Review of Systems Review of Systems: All systems reviewed & are unremarkable except as noted in Subjective Physical Exam Physical Exam: General: Lying comfortably in bed, not in distress, on room air HEENT: EOMI, DON, MMM Chest: Clear breath sounds bilaterally, no wheezes or crackles CVS: Regular rate and rhythm, normal heart sounds, no murmur Abdomen: Soft, non tender, distended, normal bowel sounds Neuro: Awake, alert, oriented, conversing well, non focal Extremities: No cyanosis, clubbing or edema. Some old scabs from excoriations Genitourinary: Scrotal edema noted without cellulitis, Sweeney in place with abhinav urine Results & Data Results & Data Vital Signs (Past 12 Hours) Vital Signs Temp Pulse Pulse Resp BP BP Pulse Ox 09/24/22 11:25 36.6 C 65 17 127/66 96 09/24/22 08:00 09/24/22 07:12 36.8 C 72 19 112/53 L 97 09/24/22 03:35 37.3 C 66 16 108/62 96 O2 Del Method 09/24/22 11:25 Room Air 09/24/22 08:00 Room Air 09/24/22 07:12 Room Air 09/24/22 03:35 Room Air Laboratory Results Short CBC 09/24/22 Range/Units 05:55 WBC 5.13 (4.8-10.8) K/ul Hgb 7.5 L (14.0-18.0) g/dl Hct 22.9 L (42.0-52.0) % Plt Count 93 L (130-400) K/uL BMP 09/24/22 05:55 Sodium 137 Potassium 3.4 L Chloride 108 H Carbon Dioxide 25 BUN 18 Creatinine 1.16 Glucose 77 Calcium 8.0 L Liver Function 09/23/22 09/24/22 Range/Units 08:45 05:55 Total Bilirubin 1.9 H (0.2-1.0) mg/dl Direct Bilirubin 0.7 H (0-0.2) mg/dl AST 51 H (13-39) U/L ALT 19 (7-52) U/L Alkaline Phosphatase 96 (34-104) U/L Albumin 2.1 L (3.4-5.0) gm/dl Medications Administered Current Inpatient Medications Acetaminophen (Acetaminophen 500 Mg Tab) 500 mg PO Q6H PRN PRN Reason: Pain or Fever Stop: 10/23/22 15:30 Furosemide (Furosemide 40 Mg/4 Ml Vial) 40 mg IV DAILY CYNTHIA Stop: 10/24/22 08:59 Last Admin: 09/24/22 08:10 Dose: 40 mg Albumin Human (Albumin 25%) 25 gm in 100 mls @ 50 mls/hr IV Q8H [facility] Stop: 09/26/22 14:14 Last Infusion: 09/24/22 07:37 Dose: Infused Magnesium Oxide (Magnesium Oxide 400 Mg Tab) 400 mg PO BID [facility] Stop: 10/24/22 08:59 Last Admin: 09/24/22 09:41 Dose: 400 mg Polyethylene Glycol (Polyethylene (Miralax) 17 Gm Pack) 17 gm PO DAILY PRN PRN Reason: Constipation Stop: 10/23/22 15:30 Potassium Chloride (Potassium Chloride Crtab 20 Meq Tabcr) 40 meq PO BID CYNTHIA Stop: 10/24/22 08:59 Last Admin: 09/24/22 09:41 Dose: 40 meq Spironolactone (Spironolactone 100 Mg Tab) 100 mg PO DAILY [facility] Stop: 10/24/22 08:59 Last Admin: 09/24/22 08:10 Dose: 100 mg
[2022-09-24] MEDS: IRON SUCROSE 200 MG in 0.9 % SODIUM CHLORIDE 100 ML IV SCH (15:49)
[2022-09-25] MEDS: ALBUMIN 25% 25 GM/100 ML VIAL IV SCH ×3 (06:06→22:04)
[2022-09-25 06:59] LABS: Hematocrit (blood only) 22.5 % (42.0-52.0); Hemoglobin 7.2 g/dl (14.0-18.0); Mean Corpuscular Hemoglobin 27.4 pg (25.0-34.0); Mean Corpuscular Volume 85.6 fL (80.0-100.0); Mean Platelet Volume 10.2 fL (9.4-12.4); Platelet Count 86 K/uL (130-400); RDW Standard Deviation 78.5 fL (36.4-46.3); Red Blood Count 2.63 M/uL (4.70-6.10); White Blood Count 5.26 K/ul (4.8-10.8)
[2022-09-25 07:24] LABS: Albumin Level 2.6 gm/dl (3.4-5.0); BUN Creatinine Ratio 15.3 (10-20); Bilirubin,Total 1.3 mg/dl (0.2-1.0); Calcium 8.2 mg/dl (8.6-10.3); Creatinine Clr Calc Pharmacy 93.7 ml/min; Est GFR (African American) 82.6 ml/min; Est GFR (Non-African American) 71.3 ml/min; Globulin 2.5 gm/dl (2.5-4.0); Magnesium 1.8 mg/dl (1.7-2.4); Phosphorus 2.6 mg/dl (2.5-4.9); Total Protein 5.1 gm/dl (6.0-8.3)
[2022-09-25] MEDS: POTASSIUM CHLORIDE CRTAB 20 MEQ TABCR PO SCH (08:12)
[2022-09-25] MEDS: MAGNESIUM OXIDE 400 MG TAB PO SCH ×2 (08:13→20:36)
[2022-09-25] MEDS: SPIRONOLACTONE 100 MG TAB PO SCH (08:13)
[2022-09-25] MEDS: FUROSEMIDE 40 MG/4 ML VIAL IV SCH (08:14)
[2022-09-25] MEDS: IRON SUCROSE 200 MG in 0.9 % SODIUM CHLORIDE 100 ML IV SCH (09:46)
--- NOTE | 2022-09-25 10:26 | Gastroenterology Progress Note ---
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 - Agree w/ IV lasix and PO Aldactone - Albumin 25% 25G TID x 2 days - Low NA diet, less than 2G daily - Echo completed as an OP in 2022 - Diagnostic and therapeutic paracentesis - Send cell count, culture, - Send protein/albumin - Send cytology HCC screening due 10/2022 Avoid liver toxins including over the counter herbal supplements May take Acetaminophen up to 2 grams a day Avoid NSAIDS due to increased risk of GI bleeding and fluid retention Avoid all alcohol Avoid benzodiazepines and opiate pain medications due to risk of precipitating HE OP EGD/Colonoscopy Admission and Anticipated Discharge Date Admission Date: September 23, 2022 Subjective No complaints this morning, no signs of bleeding confusion, negative near 2 L since admission Physical Exam Physical Exam: A and O x 3 ALVARADO NAD RRR CTABL Nabs/soft/nt/ansarca 3+ Edema No asterixis Results & Data Vital Signs (Past 12 Hours) Vital Signs Temp Pulse Pulse Resp BP BP Pulse Ox 09/25/22 07:16 37.0 C 66 19 131/64 96 09/25/22 02:48 37.2 C 73 18 142/73 H 97 09/24/22 22:59 81 09/24/22 23:00 37.1 C 77 16 115/56 L 96 O2 Del Method 09/25/22 07:16 Room Air 09/25/22 02:48 Room Air 09/24/22 22:59 09/24/22 23:00 Room Air
--- NOTE | 2022-09-25 12:11 | Hospitalist Progress Note ---
Date of Service September 25, 2022 Assessment & Plan (1) Decompensated hepatic cirrhosis: (2) Iron deficiency anemia: Plan 62 year old that presents with scrotal swelling x24 hours. Has not taken diuretics x2 weeks due to not obtaining refills of Lasix 80 mg daily/Spirinolactone 100 mg daily. Moderate ascites. No asterixis. Does not appear toxic. Admitted for further management of decompensated cirrhosis with ascites and scrotal edema Decompensated hepatic cirrhosis with ascites and scrotal edema in setting of hypoalbuminemia and hypoproteinemia: Child Herron Score: Class C 10 points. MELD score 19 Last alcohol use October 2021 No evidence of hepatic encephalopathy or SBP. Labs reviewed. Seen by GI and recommendations as noted -Continue IV albumin for 2 days -Continue Lasix/Aldactone, continue I&O's and daily weight -Plan for diagnostic and therapeutic paracentesis on Monday-patient never had any paracentesis done -Avoid alcohol, NSAIDs, liver toxins including [id number] herbal supplements, benzos and opiates Iron Deficiency Anemia: Hgb: 8.0; baseline 11.3 from 2019. Hgb 6.8 on 06/30 and received 2 UPRBC at [facility]. No CP or SOB at that time. 08/23/22: TIBC: 305, transferrin 5, ferritin 11, vitamin B12 1221 Hemoglobin down to 7.2. No signs of bleeding. On iron transfusion . Plan for endoscopy/colonoscopy 09/30/22 as OPT Hypokalemia-resolved Hypomagnesemia-resolved Thrombocytopenia/coagulopathy due to liver cirrhosis-relatively stable. Will monitor Disposition: Continue current level of care with diuretics with plans for paracentesis on Monday VTE Prophylaxis: TEDS and SCDs for now Admission and Anticipated Discharge Date Admission Date: September 23, 2022 Subjective Patient was seen and examined at bedside. No new issues. Swelling is only slightly decreased. No fever, chills, chest pain, shortness breath nausea or vomiting. Still with significant abdominal distention. Review of Systems Review of Systems: All systems reviewed & are unremarkable except as noted in Subjective Physical Exam Physical Exam: General: Sitting comfortably bedside, not in distress, on room air HEENT: EOMI, DON, MMM Chest: Clear breath sounds bilaterally, no wheezes or crackles CVS: Regular rate and rhythm, normal heart sounds, no murmur Abdomen: Soft, non tender, distended, normal bowel sounds Neuro: Awake, alert, oriented, conversing well, non focal Extremities: No cyanosis, clubbing or edema. Some old scabs from excoriations Genitourinary: Scrotal edema noted without cellulitis, Sweeney in place with abhinav urine Results & Data Results & Data Vital Signs (Past 12 Hours) Vital Signs Temp Pulse Resp BP Pulse Ox O2 Del Method 09/25/22 07:16 37.0 C 66 19 131/64 96 Room Air 09/25/22 02:48 37.2 C 73 18 142/73 H 97 Room Air Laboratory Results Short CBC 09/25/22 Range/Units 06:30 WBC 5.26 (4.8-10.8) K/ul Hgb 7.2 L (14.0-18.0) g/dl Hct 22.5 L (42.0-52.0) % Plt Count 86 L (130-400) K/uL BMP 09/25/22 06:30 Sodium 137 Potassium 4.0 Chloride 109 H Carbon Dioxide 25 BUN 17 Creatinine 1.11 Glucose 92 Calcium 8.2 L Liver Function 09/25/22 Range/Units 06:30 Total Bilirubin 1.3 H (0.2-1.0) mg/dl AST 47 H (13-39) U/L ALT 18 (7-52) U/L Alkaline Phosphatase 107 H (34-104) U/L Albumin 2.6 L (3.4-5.0) gm/dl Medications Administered Current Inpatient Medications Acetaminophen (Acetaminophen 500 Mg Tab) 500 mg PO Q6H PRN PRN Reason: Pain or Fever Stop: 10/23/22 15:30 Furosemide (Furosemide 40 Mg/4 Ml Vial) 40 mg IV DAILY CYNTHIA Stop: 10/24/22 08:59 Last Admin: 09/25/22 08:14 Dose: 40 mg Albumin Human (Albumin 25%) 25 gm in 100 mls @ 50 mls/hr IV Q8H [facility] Stop: 09/26/22 14:14 Last Infusion: 09/25/22 08:10 Dose: Infused Iron Sucrose 200 mg/ Sodium (Chloride) 110 mls @ 220 mls/hr IV DAILY CYNTHIA Stop: 09/27/22 08:59 Last Infusion: 09/25/22 11:24 Dose: Infused Magnesium Oxide (Magnesium Oxide 400 Mg Tab) 400 mg PO BID [facility] Stop: 10/24/22 08:59 Last Admin: 09/25/22 08:13 Dose: 400 mg Polyethylene Glycol (Polyethylene (Miralax) 17 Gm Pack) 17 gm PO DAILY PRN PRN Reason: Constipation Stop: 10/23/22 15:30 Potassium Chloride (Potassium Chloride Crtab 20 Meq Tabcr) 40 meq PO BID [facility] Stop: 10/24/22 08:59 Last Admin: 09/25/22 08:12 Dose: 40 meq Spironolactone (Spironolactone 100 Mg Tab) 100 mg PO DAILY [facility] Stop: 10/24/22 08:59 Last Admin: 09/25/22 08:13 Dose: 100 mg
[2022-09-26] MEDS: ALBUMIN 25% 25 GM/100 ML VIAL IV SCH ×3 (05:52→17:34)
[2022-09-26 06:46] LABS: Hematocrit (blood only) 23.3 % (42.0-52.0); Hemoglobin 7.4 g/dl (14.0-18.0); Mean Corpuscular Hemoglobin 27.1 pg (25.0-34.0); Mean Corpuscular Hgb Conc 31.8 g/dL (32.0-36.0); Mean Corpuscular Volume 85.3 fL (80.0-100.0); Mean Platelet Volume 10.6 fL (9.4-12.4); Platelet Count 85 K/uL (130-400); RDW Coefficient of Variation 26.3 % (11.5-14.5); RDW Standard Deviation 78.8 fL (36.4-46.3); Red Blood Count 2.73 M/uL (4.70-6.10); White Blood Count 5.21 K/ul (4.8-10.8)
[2022-09-26 07:00] LABS: Albumin Globulin Ratio 1.2 (0.9-2); Albumin Level 2.8 gm/dl (3.4-5.0); BUN Creatinine Ratio 14.9 (10-20); Bilirubin,Total 1.3 mg/dl (0.2-1.0); Calcium 8.4 mg/dl (8.6-10.3); Creatinine Clr Calc Pharmacy 111.3 ml/min; Est GFR (Non-African American) 87.2 ml/min; Globulin 2.3 gm/dl (2.5-4.0); Potassium 3.9 mmol/L (3.5-5.1); Total Protein 5.1 gm/dl (6.0-8.3)
[2022-09-26 07:07] LABS: INR 1.8 (0.9-1.1); Prothrombin Time 18.6 Seconds (9.0-12.0)
[2022-09-26] MEDS: MAGNESIUM OXIDE 400 MG TAB PO SCH (09:45)
[2022-09-26] MEDS: SPIRONOLACTONE 100 MG TAB PO SCH (09:45)
[2022-09-26] MEDS: IRON SUCROSE 200 MG in 0.9 % SODIUM CHLORIDE 100 ML IV SCH (09:45)
[2022-09-26] MEDS: FUROSEMIDE 40 MG/4 ML VIAL IV SCH (09:45)
--- NOTE | 2022-09-26 10:10 | Gastroenterology Progress Note ---
Date of Service September 26, 2022 Assessment & Plan (1) Decompensated hepatic cirrhosis: Plan: Pt is a 62 year old male w/ decompensated alcohol cirrhosis admitted w/ volume overload, MELD 19, last ETOH use October 2021. Was drinking lots of gatorade and ran out of Lasix prior to admission. Net volume - 3L since admitted. - Diuretics: Lasix 40mg daily + Spironolactone 100mg daily - 2g Na diet - US guided paracentesis today w Albumin repletion, fluid analysis (protein, albumin, cell ct, culture). - ETOH cessation; no APAP >2g a day if needed. Avoid NSAIDs, Benzodiazepines and opioids - F/U w Dr. Katz on 10/03 for EGD/Colonosocpy and in OP Hepatology clinic on 10/06 - Recall GI prn Admission and Anticipated Discharge Date Admission Date: September 23, 2022 Supervising Physician Co-Signing Physician Notes Attg add: Pt with sig ascites, plan for tap. OK for dc after tap. Subjective Pt noticed less scrotal and leg edema. Awaiting paracentesis to be done today and would like to go home. Denies abd pain, n/v. Review of Systems Review of Systems: All systems reviewed & are unremarkable except as noted in HPI & below Physical Exam 2 Constitutional: WD/WN, vitals as above well groomed, cooperative and comfortable Eyes: PERRL, conjunctivae normal, anicteric sclerae ENMT: external ear and nose normal, oropharynx normal Respiratory: normal respiratory effort, lungs clear to auscultation Cardiovascular: RRR, no murmur, no edema Gastrointestinal (Abdomen): Abd distended, non tender, BS hypoactive Skin: no rashes, warm and dry no jaundice Neurologic: Motor/Sensory: no asterixis Psychiatric: A+Ox3, euthymic affect Lymphatic: no lymphedema Results & Data Vital Signs (Past 12 Hours) Vital Signs Temp Pulse Pulse Resp BP BP Pulse Ox 09/26/22 08:05 36.6 C 71 18 128/75 99 09/26/22 03:36 36.5 C 69 15 119/67 99 09/25/22 23:08 72 09/25/22 23:35 36.4 C L 70 19 146/71 H 99 O2 Del Method 09/26/22 08:05 Room Air 06/19/23 03:36 Room Air 09/25/22 23:08 09/25/22 23:35 Room Air
--- NOTE | 2022-09-26 15:05 | Discharge Summary ---
Date of Service September 26, 2022 Admission HPI Per Admitting Provider Mr. Lopez is a 62 year old male that presents to the ED today with complaints of testicular pain that started this morning. He stated that he has not taken his diuretics x2 weeks due to not obtaining refills of Lasix 80 mg daily/Spirinolactone 100 mg daily. He presents with moderate ascites. No asterixis and does not appear toxic. He is hemodynamically stable. Lasix 40 mg IV given in ED. Patient does have a medical history that includes liver cirrhosis. Patient at baseline takes Furosemide and as home spironolactone as home medications but has been non compliant. He was previously followed by a PCP in [place]. Follows with GI at [facility]. States he is not drinking or using Tylenol or ibuprofen and reports his last alcohol use being October.He is scheduled for EGD and [place] on 10/03/22. He denies blood in stool, denies tarry/black stools. No recent vomiting. Most recent colonoscopy 06/2019: umbilical hernia with gangrene noted rather small and it was decided in light of his liver disease better for expectant management. Diastasis of rectus abdominis likely secondary to ascites from liver disease Pt reports upper and lower scope planned for later this month. Most recent ECHO from 06/2022: Normal LV wall motion, EF 60 to 64%, grade 1 diastolic dysfunction, aortic root borderline enlarged 3.8 cm. In the ED, Sodium 133, K+ 3.5, INR 1.5, AST 69, ALT 26, alk phos 133, T Bili 2.5, Albumin 2.3. Does not appear toxic. Hemodynamically stable. Last alcohol use October 2021. No tobacco use; reports cocaine use to attending provider. Hgb: 8.0; baseline 11.3 from 2019. Hgb 6.8 on 06/30 and received 2 UPRBC at [facility]. No CP or SOB at that time. Scrotum ultrasound results: The right testicle measures 2.9 x 2.0 x 1.8 cm. The left testicle measures 2.7 x 2.0 x 1.5 cm. The testes are uniform in echogenicity bilaterally. No focal intratesticular lesions are identified. The epididymal heads are unremarkable. There are no hydroceles. No varicoceles were seen. Scrotal edema and wall thickening is seen. Liver ultrasound results: Cirrhosis. Patent main portal vein with appropriately directed flow. Perihepatic ascites, without gallstones. Gallbladder wall thickening, a nonspecific finding in the setting of cirrhosis. No sonographic Schwarz sign. No evidence for acute cholecystitis. Borderline biliary ductal dilatation. CXR negative for acute cardiopulmonary disease. Pt denies ARMENTA, dizziness, SOB, chest pain, palpitations, abdominal pain or tenderness, recent falls or trauma, ejaculation pain. On examination, patient with moderate ascites LE up to hip with abdominal distension. Some ecchymosis on R hip and B/L forearms. INR 1.5. Discussed with India Barreto from GI and plan for abdominal US and therapeutic p aracentesis. Patient will be admitted for further evaluation and management. Please see A/P for further details. Admission Exam Per Admitting Provider Neuro: AAOx4, PERRLA, no aphagia, memory changes, CNII-XII grossly intact. No asterixis HEENT: head normocephalic, moist mucus membranes CV: S1/S2, (-) M/G/R, (+) edema LE, into hips and abdominal with scrotal swelling, cap refill < 3 seconds Resp: Lungs CTA in all tolbert. On RA GI: Abdomen Large, distended with ascites. Ax4 bowel sounds, (-) CVA tenderness Musculoskeletal: 5/5 B/L UE strength, 5/5 B/L LE strength. No gait disturbance Skin: (-) rashes , (-) erythema. (+) ecchymosis right hip and bilateral forearms (spontaneous), no falls Psych: euthymic mood Principal Diagnosis Decompensated liver cirrhosis with ascites and scrotal edema, hypoproteinemia, hypoalbuminemia, iron deficiency anemia Discharge Exam General: Lying comfortably in bed, not in distress, on room air HEENT: EOMI, DON, MMM Chest: Clear breath sounds bilaterally, no wheezes or crackles CVS: Regular rate and rhythm, normal heart sounds, no murmur Abdomen: Soft, non tender, distended, normal bowel sounds Neuro: Awake, alert, oriented, conversing well, non focal Extremities: No cyanosis, clubbing or edema : Scrotal edema improved Discharge Data Allergies Allergy/AdvReac Type Severity Reaction Status Date / Time No Known Allergies Allergy Verified 08/26/22 10:24 Consultations 09/23/22 12:48 Consult Gastroenterology Routine Ordered Studies 09/23/22 08:22 US scrotum/testicle Stat 09/23/22 09:12 US liver Stat 09/26/22 IR paracentesis abd w/img US Routine Laboratory Results WBC 5.21 K/ul (4.8-10.8) 09/26/22 06:22 RBC 2.73 M/uL (4.70-6.10) L 09/26/22 06:22 Hgb 7.4 g/dl (14.0-18.0) L 09/26/22 06:22 Hct 23.3 % (42.0-52.0) L 09/26/22 06:22 MCV 85.3 fL (80.0-100.0) 09/26/22 06:22 MCH 27.1 pg (25.0-34.0) 09/26/22 06:22 MCHC 31.8 g/dL (32.0-36.0) L 09/26/22 06:22 RDW Std Deviation 78.8 fL (36.4-46.3) H 09/26/22 06:22 RDW Coeff of Dean 26.3 % (11.5-14.5) H 09/26/22 06:22 Plt Count 85 K/uL (130-400) L 09/26/22 06:22 MPV 10.6 fL (9.4-12.4) 09/26/22 06:22 Immature Gran % (Auto) 0.5 % 09/23/22 08:45 Neut % (Auto) 71.0 % 09/23/22 08:45 Lymph % (Auto) 12.6 % 09/23/22 08:45 [place] % (Auto) 12.5 % 09/23/22 08:45 Eos % (Auto) 2.6 % 09/23/22 08:45 Baso % (Auto) 0.8 % 09/23/22 08:45 Neut # (Auto) 6.00 K/uL (1.40-6.50) 09/23/22 08:45 Lymph # (Auto) 1.07 K/uL (1.2-3.4) L 09/23/22 08:45 Penning[place] # (Auto) 1.06 K/uL (0.11-0.59) H 09/23/22 08:45 Eos # (Auto) 0.22 K/uL (0-0.50) 09/23/22 08:45 Baso # (Auto) 0.07 K/uL (0-0.2) 09/23/22 08:45 Immature Gran # (Auto) 0.04 K/uL (0.01-0.20) 09/23/22 08:45 Platelet Estimate Decreased (Normal) L 09/24/22 05:55 Anisocytosis Present 09/23/22 08:45 Echinocytes 1+ 09/23/22 08:45 Acanthocytes (Spur) 1+ 09/23/22 08:45 PT 18.6 Seconds (9.0-12.0) H 09/26/22 06:22 INR 1.8 (0.9-1.1) H 09/26/22 06:22 APTT 31.4 Seconds (21.0-31.0) H 09/23/22 08:45 PTT Ratio 1.1 09/23/22 08:45 Sodium 138 mmol/L (136-145) 09/26/22 06:22 Potassium 3.9 mmol/L (3.5-5.1) 09/26/22 06:22 Chloride 109 mmol/L (98-107) H 09/26/22 06:22 Carbon Dioxide 25 mmol/L (21-32) 09/26/22 06:22 Anion Gap 4 (3-11) 09/26/22 06:22 BUN 14 mg/dl (6-23) 09/26/22 06:22 Creatinine 0.94 mg/dl (0.6-1.4) 09/26/22 06:22 Est Cr Clr Drug Dosing 111.3 ml/min 09/26/22 06:22 Est GFR ( Amer) 101.0 ml/min 09/26/22 06:22 Est GFR (Non-Af Amer) 87.2 ml/min 09/26/22 06:22 BUN/Creatinine Ratio 14.9 (10-20) 09/26/22 06:22 Glucose 85 mg/dl (70-99(Fasting)) 09/26/22 06:22 Calcium 8.4 mg/dl (8.6-10.3) L 09/26/22 06:22 Phosphorus 2.6 mg/dl (2.5-4.9) 09/25/22 06:30 Magnesium 1.8 mg/dl (1.7-2.4) 09/25/22 06:30 Total Bilirubin 1.3 mg/dl (0.2-1.0) H 09/26/22 06:22 Direct Bilirubin 0.7 mg/dl (0-0.2) H 09/23/22 08:45 AST 37 U/L (13-39) 09/26/22 06:22 ALT 16 U/L (7-52) 09/26/22 06:22 Alkaline Phosphatase 91 U/L (34-104) 09/26/22 06:22 Total Protein 5.1 gm/dl (6.0-8.3) L 09/26/22 06:22 Albumin 2.8 gm/dl (3.4-5.0) L 09/26/22 06:22 Globulin 2.3 gm/dl (2.5-4.0) L 09/26/22 06:22 Albumin/Globulin Ratio 1.2 (0.9-2) 09/26/22 06:22 Lipase 66 U/L (11-82) 09/23/22 08:45 Urine Color Yellow 09/23/22 10:20 Urine Appearance Clear (Clear) 09/23/22 10:20 Urine pH 7.0 (4.5-7.5) 09/23/22 10:20 Ur Specific [facility] 1.005 (1.000-1.030) 09/23/22 10:20 Urine Protein Negative (Negative) 09/23/22 10:20 Urine Glucose (UA) Negative (Negative) 09/23/22 10:20 Urine Ketones Negative (Negative) 09/23/22 10:20 Urine Blood Trace (Negative) H 09/23/22 10:20 Urine Nitrite Negative (Negative) 09/23/22 10:20 Urine Bilirubin Negative (Negative) 09/23/22 10:20 Urine Urobilinogen Negative (Negative) 09/23/22 10:20 Ur Leukocyte Esterase Negative (Negative) 09/23/22 10:20 Urine WBC (Auto) 0 /hpf (0-5) 09/23/22 10:20 Urine RBC (Auto) 0-4 /hpf (0-4) 09/23/22 10:20 U Hyaline Cast (Auto) 1-5 /lpf (0-5) 09/23/22 10:20 U Epithel Cells (Auto) 5-10 /lpf (0-5) H 09/23/22 10:20 Urine Bacteria (Auto) Negative (Negative) 09/23/22 10:20 Lyme Disease IgG Ab Negative (Negative) 09/23/22 08:45 Lyme Disease IgM Ab Negative (Negative) 09/23/22 08:45 SARS-CoV-2, RNA, NAAT NEGATIVE (NEGATIVE) 09/23/22 08:50 Impressions Scrotum Ultrasound 09/23/22 08:22 US scrotum/testicle CLINICAL HISTORY: swelling, ?hydrocele TECHNIQUE: Real-time sonographic images of the scrotal contents were obtained. Comparison: None available at the time of this dictation. FINDINGS: The right testicle measures 2.9 x 2.0 x 1.8 cm. The left testicle measures 2.7 x 2.0 x 1.[address] testes are uniform in echogenicity bilaterally. No focal intratesticular lesions are identified. The epididymal heads are unremarkable. There are no hydroceles. No varicoceles were seen. Scrotal edema and wall thickening is seen. IMPRESSION: Scrotal edema is seen. No underlying testicular abnormalities. ACT 112: Negative or not required by law. Electronically signed by: Josué Greco M.D. 09/23/2022 10:20 AM Chest X-Ray 09/23/22 08:23 XR chest 1V portable HISTORY: 62 years-old Male fluid overload acute shortness of breath COMPARISON: None TECHNIQUE: AP view of the chest FINDINGS: Cardiac silhouette is mildly enlarged. No pneumothorax, pleural effusion, airspace consolidation or pulmonary edema. Degenerative changes of the shoulders and spine. IMPRESSION: No acute process. ACT 112: Negative or not required by law. The above report was generated using voice recognition software. It may contain grammatical, syntax or spelling errors. Electronically signed by: Daryl Miranda M.D. 09/23/2022 8:59 AM Liver Ultrasound 09/23/22 09:12 US liver CLINICAL HISTORY: cirrhosis, ? portal vein thrombus COMPARISON STUDY: No previous studies for comparison. TECHNIQUE: Sonography of the right upper quadrant was performed. Color and duplex Doppler sonography of the main portal vein was performed. FINDINGS: The liver is somewhat diminutive and there is coarsening of hepatic echotexture with nodularity of the liver surface indicative of cirrhosis. No hepatic lesions are identified by sonography. The main portal vein is patent with appropriately directed flow. The pancreas was obscured by overlying bowel gas. Common bile duct measures 7 mm in caliber. No gallstones are noted. Moderate gallbladder wall thickening is noted. The gallbladder wall measures 7 mm in thickness. No sonographic Schwarz sign was elicited. There is no right hydronephrosis. Moderate right upper quadrant ascites is present. IMPRESSION: 1. Cirrhosis. Patent main portal vein with appropriately directed flow. Perihepatic ascites. 2. No gallstones. Gallbladder wall thickening, a nonspecific finding in the setting of cirrhosis. No sonographic Schwarz sign. No evidence for acute cholecystitis. 3. Borderline biliary ductal dilatation. ACT 112: Negative or not required by law. Electronically signed by: Lavon Stone M.D. 09/23/2022 10:18 AM Hospital Course (1) Decompensated hepatic cirrhosis: (2) Iron deficiency anemia: Plan 62 year old that presents with scrotal swelling x24 hours. Has not taken diuretics x2 weeks due to not obtaining refills of Lasix 80 mg daily/Spirinolactone 100 mg daily. Moderate ascites. No asterixis. Does not appear toxic. Admitted for further management of decompensated cirrhosis with ascites and scrotal edema Decompensated hepatic cirrhosis with ascites and scrotal edema in setting of hypoalbuminemia and hypoproteinemia: Child Herron Score: Class C 10 points. MELD score 19 Last alcohol use October 2021 No evidence of hepatic encephalopathy or SBP. Labs reviewed. Seen by GI and recommendations noted. Received IV albumin, IV Lasix and Aldactone -Status post paracentesis today with removal of 5L ascitic fluid- not suggestive of SBP, cultures pending. Received 50 g IV albumin immediately after paracentesis prior to discharge -Continue p.o. Lasix and Aldactone at discharge and follow-up with GI -Avoid alcohol, NSAIDs, liver toxins including [id number] herbal supplements, benzos and opiates Iron Deficiency Anemia: Hgb: 8.0; baseline 11.3 from 2019. Hgb 6.8 on 06/30 and received 2 UPRBC at [facility]. No CP or SOB at that time. 08/23/22: TIBC: 305, transferrin 5, ferritin 11, vitamin B12 1221 Hemoglobin down to 7.2. No signs of bleeding. On iron transfusion D3/3. Plan for endoscopy/colonoscopy 09/30/22 as OPT Hypokalemia-resolved Hypomagnesemia-resolved Thrombocytopenia/coagulopathy due to liver cirrhosis-relatively stable. Hypoalbuminemia/hypoproteinemia due to liver disease-improved with albumin transfusion Patient is adamant to get discharged. He is comfortable and stable at the time of discharge. Total Time Total Time Spent Total Time Spent (In Minutes): 45 Discharge Plan Discharge Items Patient Disposition: Home - Self-Care Reason For Visit: HYPERVOLEMIA,DECOMPENSATED CIRRHOSIS Discharge Diagnosis: Decompensated alcoholic liver cirrhosis with ascites and scrotal edema, hypoalbuminemia, hypoproteinemia Activity: Resume your previous activity Non-emergency contact: Primary Care Provider and Tag Writer Call non-emergency contact if: you have any medication questions, your symptoms worsen, your pain is not controlled and you have a fever Follow-up/Referrals: Jarocho Chaudhry MD [Primary Care Provider] - (Date & Time 09/30/2022 1:00 PM Provider Rita Richter MD Department Family Medicine [facility] ) Diet: Heart Healthy and Low Sodium (2gm) Addtl Attending Provider Instructions: Continue Lasix, Aldactone every day as prescribed Low sodium diet, no more than 2 gram per day No more than 2 gram tylenol a day if needed. Avoid over the counter pain medications. Follow-up with GI doctors for endoscopy and colonoscopy as well as referral for liver transplant Follow-up with your family doctor Pending Studies at Discharge: Yes (Ascitic fluid culture) Stand-Alone Forms: My [facility], Smoking Cessation Medications and DC Order Prescriptions: Continued spironolactone 100 mg Tablet 100 mg PO DAILY Qty: 30 0RF Changed furosemide 40 mg tablet 40 mg PO DAILY Qty: 30 0RF Discharge Orders: Discharge Order (Routine); Ordered 09/26/22 Ordered By: Joaquin Zapien Admission Data Admit Date/Time: 09/23/22 12:14 Attending Provider: Joaquin Zapien Admit Provider: Diane Farris Primary Care Provider: Jarocho Chaudhry Other Providers: Adan Singh Other Interventions: Discharge Summary Assessment (RN) Last Done: 09/26/22 17:09
[2022-09-26 16:12] LABS: Albumin Peritoneal Fluid < 1.5 gm/dl; Amylase Peritoneal Fluid 11 U/L
[2022-09-26 16:18] LABS: Glucose Peritoneal Fluid 130 mg/dl; LDH Peritoneal Fluid 44 U/L; Lipase Peritoneal Fluid 32 U/L; Total Protein Peritoneal Fluid < 3.0 gm/dl
[2022-09-26 17:29] LABS: Appearance Peritoneal Fluid Clear; Color Peritoneal Fluid Pale Yellow; Lymphocytes, Fluid 44 %; Mono,Macrophage,Mesothelial 40 %; Neutrophils, Fluid 16 %; RBC Peritoneal Fluid Auto < 2000 /uL; WBC Peritoneal Fluid Auto 176 /ul (0-300)
--- NOTE | 2022-09-27 12:44 | Ultrasound Report ---
Ultrasound-guided paracentesis INDICATION: Ascites PROCEDURE: Procedure and risks were explained. Informed consent was obtained. A final timeout was com pleted. The left lower quadrant was prepped and draped in sterile fashion. 1% lidocaine was utilized for skin anesthesia. Utilizing ultrasound guidance, a 5 Syriac safety centesis catheter was advanced into the pocket with ascites. Ultrasound images were obtained. A total of 5 L of yellow ascites fluid was removed, with 1 L sent to the lab for analysis. The catheter was removed and Band-Aid applied. The patient tolerated the procedure well. Vital signs will be monitored on the floor postprocedure. IMPRESSION: Ultrasound-guided paracentesis as above. Performed, dictated, and signed by Chago Talbert PA-C; to be co-signed by Dr. Lavon Stone. Electronically signed by: Lavon Stone M.D. 09/27/2022 3:26 PM
== END 2022-09-26 18:41 | disposition home or self-care (01) | DRG 729 ==
LOC: ED 07:57 → SUATTDRO 12:14 → 2S 12:14

== ENCOUNTER 2022-12-11 22:01 | Inpatient (IN) ==
[2022-12-11 22:50] LABS: Albumin Globulin Ratio 0.7 (0.9-2); Albumin Level 2.2 gm/dl (3.4-5.0); BUN Creatinine Ratio 23.9 (10-20); Bilirubin,Total 2.3 mg/dl (0.2-1.0); Calcium 7.6 mg/dl (8.6-10.3); Creatinine Clr Calc Pharmacy 57.5 ml/min; Est GFR (African American) 46.1 ml/min; Est GFR (Non-African American) 39.7 ml/min; Globulin 3.1 gm/dl (2.5-4.0); Potassium 4.3 mmol/L (3.5-5.1); Total Protein 5.3 gm/dl (6.0-8.3)
[2022-12-11 22:56] LABS: Basophils # (auto) 0.05 K/uL (0.00-0.20); Basophils % (auto) 0.2 %; Dohle Bodies 1+; Echinocytes 2+; Eosinophils # (auto) 0.02 K/uL (0.00-0.50); Eosinophils % (auto) 0.1 %; Hematocrit (blood only) 24.5 % (42.0-52.0); Hemoglobin 8.1 g/dl (14.0-18.0); Immature Granulocytes # (auto) 0.97 K/uL (0.01-0.20); Immature Granulocytes % (auto) 3.9 %; Lymphocytes # (auto) 1.01 K/uL (1.20-3.40); Lymphocytes % (auto) 4.1 %; Mean Corpuscular Hemoglobin 30.2 pg (25.0-34.0); Mean Corpuscular Hgb Conc 33.1 g/dL (32.0-36.0); Mean Corpuscular Volume 91.4 fL (80.0-100.0); Mean Platelet Volume 11.2 fL (9.4-12.4); Monocytes # (auto) 2.22 K/uL (0.11-0.59); Neutrophils # (auto) 20.32 K/uL (1.40-6.50); Neutrophils % (auto) 82.7 %; Platelet Count 94 K/uL (130-400); Polychromasia 1+; RDW Coefficient of Variation 16.7 % (11.5-14.5); RDW Standard Deviation 55.9 fL (36.4-46.3); Red Blood Count 2.68 M/uL (4.70-6.10); White Blood Count 24.59 K/ul (4.8-10.8)
[2022-12-11] MEDS ORDERED: SODIUM CHLORIDE 0.9% 500 ML IV ONE (23:37)
[2022-12-11] MEDS ORDERED: fentaNYL citrate PF 100 MCG/2 ML VIAL IV STA (23:37)
[2022-12-11] MEDS ORDERED: PIPERACILLIN/TAZOBACTAM 4.5 GM/120 ML BAG IV ONE (23:37)
[2022-12-11] MEDS ORDERED: ALBUMIN 25% 25 GM/100 ML VIAL IV ONE (23:37)
[2022-12-12 00:22] LABS: INR 1.5 (0.9-1.1); Partial Thromboplastin Ratio 1.3; Partial Thromboplastin Time 36.5 Seconds (21.0-31.0); Prothrombin Time 16.1 Seconds (9.0-12.0)
--- NOTE | 2022-12-12 00:39 | Emergency Department Note ---
Impression & Plan Decompensated hepatic cirrhosis, Acute hyponatremia, Hepatorenal syndrome ED Provider Note Provider: Tony Kumar MD DATE OF SERVICE: 12/11/2022 CHIEF COMPLAINT: Weakness, falls HISTORY OF PRESENT ILLNESS: Patient is a 62-year-old gentleman history of hepatic cirrhosis presenting here today recommendation of friends due to increased weakness and multiple falls over the last several days. States he did hit his head at 1 point several days ago. has been generally weak and dealing with shingles in his left abdomen for about a month. States it feels like his abdomen swelling or any symptoms several days of his diuretics. Denies significant difficulty breathing or chest discomfort. Some discomfort again fullness into the abdomen. Denies significant injury to the extremities but it does appear that he has scraped his knees little bit bilaterally. Denies significant tenderness again. Denies neck pain. Denies significant headache at this time. Feeling more weak and friend came to visit him and thought he was looking quite unwell and recommended he come here. Patient with some mild chronic back pain. PAST MEDICAL HISTORY: As noted above MEDICATIONS: Reviewed home medications but has not been able to take his diuretics for last 2 days has not been feeling up to it. SOCIAL HISTORY: Lives at home by himself PHYSICAL EXAM: GENERAL: alert and oriented in no acute distress on stretcher Head: normocephalic and atraumatic EYES: No injection, discharge or icterus. PERRL NECK: Trachea midline. Supple without midline cervical tenderness ENT: Mucous membranes pink and moist. LUNGS: Airway patent. No retractions. Breath sounds clear with good air entry bilaterally. HEART: Regular rate and rhythm. No chest wall tenderness ABDOMEN: Soft and moderately distended. There is scattered vesicular lesions consistent with shingles of the left upper abdomen. Not crossing midline. No significant surrounding erythema. Mild diffuse tenderness. SKIN: Acyanotic, warm, dry, without rashes EXTREMITIES: Bilateral abrasions and slight contusion to the knees without significant focal bony tenderness. Trace edema of the bilateral lower extremities. NEUROLOGICAL: No focal deficits. No aphasia. No facial droop or slurred speech. Ambulatory. EK bpm normal sinus rhythm. No PVC or PAC. No acute ST segment elevation or depression with a QTc of 497. CONTINUOUS CARDIAC MONITORING: was ordered and showed a heart rate of 70s-80s bpm in normal sinus rhythm GCS 15. Patient's laboratory studies and imaging reviewed. Differential includes traumatic injury, cirrhosis, GI bleed, SBP, hepatic encephalopathy, infection, dehydration, metabolic abnormality, hypo/hyperglycemia, electrolyte disturbance, anemia, hypoxia, cardiac sources, intracerebral event, toxicologic, neurologic, as well as other pathologies. IMPRESSION/MEDICAL DECISION MAKING: Patient with known history of liver cirrhosis. Appears to be decompensated to some degree with increased swelling. Did use the portable ultrasound but do not see any large pockets that I feel comfortable attempting to tap at this point but unclear if he is truly having significant abdominal pain. Has had multiple falls. We will complete CT of the head, cervical spine, chest and abdomen pelvis. I doubt any significant injury to the knees beyond the contusions abrasions based on physical exam doubly we need x-rays here. Blood work from triage with multiple abnormalities. New leukocytosis over 24 although does have stable anemia slightly improved at 8.1. Stable platelets at 94. INR 1.5. Evidence of worsened hyponatremia 125 today with a new acute renal injury a BUN of 43 and a creatinine 1.8. Seems likely to be a component of hepatorenal syndrome. No lactate elevation. Slight worsening of bilirubin to 2.3 with a procalcitonin of 12.5 and negative urinalysis. Ammonia not elevated. Somewhat worsened transaminitis. Will empirically cover with antibiotics at this time given dose of Zosyn. Recovering from shingles but no evidence of significant superinfection or cellulitis at this point. Could present SBP but given lack of a significant pocket bedside ultrasound cannot obtain diagnostic tap at this time. Given some albumin as well as some gentle fluid hydration. Want to watch against third spacing but want to try to resuscitate as we can. Question some hepatorenal syndrome. Blood cultures were ordered. Not having any significant respiratory complaints. CT head and cervical spine per radiology reports without evidence significant traumatic injury or bleeding. Doubt septic shock. Being careful avoid fluid overload given his history of decompensated cirrhosis and only ordered 500 cc of IV fluid. Patient requires admission for further care. Hospitalist contacted. DIAGNOSIS: Decompensated hepatic cirrhosis, hyponatremia, hepatorenal syndrome DISPOSITION: Hospitalist will evaluate Patient was agreeable with this plan. Past Med/Surg History Medical History Decompensated hepatic cirrhosis Hx of fracture of patella Iron deficiency anemia Liver cirrhosis Right shoulder injury Surgical History Hx of appendectomy Social History Smoking Status: Never smoker Hx Alcohol Use: No Hx Substance Use: No Preferred Language: Burkinan Communication Ability: Effective Playground Equipment Erector Required: No Beliefs That Will Affect Care: None Current Living Situation: Family Feels Safe at Home: Yes Assistive Devices: Glasses Allergies Allergies Allergy/AdvReac Type Severity Reaction Status Date / Time No Known Allergies Allergy Verified 08/26/22 10:24 Home Meds Previous Rx's Medication Instructions Recorded furosemide 40 mg tablet 40 mg PO DAILY #30 tabs 09/26/22 spironolactone 100 mg tablet 100 mg PO DAILY #30 tabs 09/26/22 Results & Data (ED) Vital Signs Vital Signs - 24 hr 12/11/22 22:11 12/11/22 23:00 12/11/22 22:07 Temperature 36.6 C Temperature Source Temporal Artery Scan Pulse Rate 76 75 Pulse Rate [Apical] 77 Respiratory Rate 18 18 Respiratory Effort / Characteristics Non-Labored Spontaneous Non-Labored Spontaneous Respiratory Depth Normal Normal Respiratory Pattern Regular Regular Blood Pressure 114/53 L Blood Pressure [Left Arm] 119/57 L Blood Pressure Mean 73 Blood Pressure Mean [Left Arm] 77 Pulse Oximetry 100 100 Oxygen Delivery Method Room Air Room Air Sepsis Recent Fever Within 48 Hours No Sepsis New/Unexplained Change in Mental Status No Sepsis Action Taken by Nursing No Action Required Laboratory Data 12/11/22 22:08 12/11/22 22:08 Lab Results 12/11/22 12/11/22 12/11/22 Range/Units 22:08 22:08 22:08 WBC 24.59 H (4.8-10.8) K/ul RBC 2.68 L (4.70-6.10) M/uL Hgb 8.1 L (14.0-18.0) g/dl Hct 24.5 L (42.0-52.0) % MCV 91.4 (80.0-100.0) fL MCH 30.2 (25.0-34.0) pg MCHC 33.1 (32.0-36.0) g/dL RDW Std Deviation 55.9 H (36.4-46.3) fL RDW Coeff of Dean 16.7 H (11.5-14.5) % Plt Count 94 L (130-400) K/uL MPV 11.2 (9.4-12.4) fL Immature Gran % (Auto) 3.9 % Neut % (Auto) 82.7 % Lymph % (Auto) 4.1 % [place] % (Auto) 9.0 % Eos % (Auto) 0.1 % Baso % (Auto) 0.2 % Neut # (Auto) 20.32 H (1.40-6.50) K/uL Lymph # (Auto) 1.01 L (1.20-3.40) K/uL [place] # (Auto) 2.22 H (0.11-0.59) K/uL Eos # (Auto) 0.02 (0.00-0.50) K/uL Baso # (Auto) 0.05 (0.00-0.20) K/uL Immature Gran # (Auto) 0.97 H (0.01-0.20) K/uL Dohle Bodies 1+ Polychromasia 1+ Echinocytes 2+ PT 16.1 H (9.0-12.0) Seconds INR 1.5 H (0.9-1.1) APTT 36.5 H (21.0-31.0) Seconds PTT Ratio 1.3 Sodium 125 L (136-145) mmol/L Potassium 4.3 (3.5-5.1) mmol/L Chloride 98 (98-107) mmol/L Carbon Dioxide 20 L (21-32) mmol/L Anion Gap 7 (3-11) BUN 43 H (6-23) mg/dl Creatinine 1.80 H (0.6-1.4) mg/dl Est Cr Clr Drug Dosing 57.5 ml/min Est GFR ( Amer) 46.1 ml/min Est GFR (Non-Af Amer) 39.7 ml/min BUN/Creatinine Ratio 23.9 H (10-20) Glucose 132 H (70-99(Fasting)) mg/dl Osmolality (280-300) mOsm/kg Lactate (0.4-2.0) mmol/L Calcium 7.6 L (8.6-10.3) mg/dl Total Bilirubin 2.3 H (0.2-1.0) mg/dl AST 276 H (13-39) U/L ALT 57 H (7-52) U/L Alkaline Phosphatase 152 H (34-104) U/L Ammonia (18-72) umol/L Total Protein 5.3 L (6.0-8.3) gm/dl Albumin 2.2 L (3.4-5.0) gm/dl Globulin 3.1 (2.5-4.0) gm/dl Albumin/Globulin Ratio 0.7 L (0.9-2) Procalcitonin (0-0.5) ng/ml Urine Color Urine Appearance (Clear) Urine pH (4.5-7.5) Ur Specific [place] (1.000-1.030) Urine Protein (Negative) Urine Glucose (UA) (Negative) Urine Ketones (Negative) Urine Blood (Negative) Urine Nitrite (Negative) Urine Bilirubin (Negative) Urine Urobilinogen (Negative) Ur Leukocyte Esterase (Negative) Urine WBC (Auto) (0-5) /hpf Urine RBC (Auto) (0-4) /hpf U Hyaline Cast (Auto) (0-5) /lpf U Epithel Cells (Auto) (0-5) /lpf Urine Bacteria (Auto) (Negative) 12/11/22 12/11/22 12/11/22 Range/Units 22:08 22:08 23:55 WBC (4.8-10.8) K/ul RBC (4.70-6.10) M/uL Hgb (14.0-18.0) g/dl Hct (42.0-52.0) % MCV (80.0-100.0) fL MCH (25.0-34.0) pg MCHC (32.0-36.0) g/dL RDW Std Deviation (36.4-46.3) fL RDW Coeff of Dean (11.5-14.5) % Plt Count (130-400) K/uL MPV (9.4-12.4) fL Immature Gran % (Auto) % Neut % (Auto) % Lymph % (Auto) % [place] % (Auto) % Eos % (Auto) % Baso % (Auto) % Neut # (Auto) (1.40-6.50) K/uL Lymph # (Auto) (1.20-3.40) K/uL [place] # (Auto) (0.11-0.59) K/uL Eos # (Auto) (0.00-0.50) K/uL Baso # (Auto) (0.00-0.20) K/uL Immature Gran # (Auto) (0.01-0.20) K/uL Dohle Bodies Polychromasia Echinocytes PT (9.0-12.0) Seconds INR (0.9-1.1) APTT (21.0-31.0) Seconds PTT Ratio Sodium (136-145) mmol/L Potassium (3.5-5.1) mmol/L Chloride (98-107) mmol/L Carbon Dioxide (21-32) mmol/L Anion Gap (3-11) BUN (6-23) mg/dl Creatinine (0.6-1.4) mg/dl Est Cr Clr Drug Dosing ml/min Est GFR ( Amer) ml/min Est GFR (Non-Af Amer) ml/min BUN/Creatinine Ratio (10-20) Glucose (70-99(Fasting)) mg/dl Osmolality 279 L (280-300) mOsm/kg Lactate (0.4-2.0) mmol/L Calcium (8.6-10.3) mg/dl Total Bilirubin (0.2-1.0) mg/dl AST (13-39) U/L ALT (7-52) U/L Alkaline Phosphatase (34-104) U/L Ammonia 30.0 (18-72) umol/L Total Protein (6.0-8.3) gm/dl Albumin (3.4-5.0) gm/dl Globulin (2.5-4.0) gm/dl Albumin/Globulin Ratio (0.9-2) Procalcitonin 12.54 H (0-0.5) ng/ml Urine Color Urine Appearance (Clear) Urine pH (4.5-7.5) Ur Specific [place] (1.000-1.030) Urine Protein (Negative) Urine Glucose (UA) (Negative) Urine Ketones (Negative) Urine Blood (Negative) Urine Nitrite (Negative) Urine Bilirubin (Negative) Urine Urobilinogen (Negative) Ur Leukocyte Esterase (Negative) Urine WBC (Auto) (0-5) /hpf Urine RBC (Auto) (0-4) /hpf U Hyaline Cast (Auto) (0-5) /lpf U Epithel Cells (Auto) (0-5) /lpf Urine Bacteria (Auto) (Negative) 12/11/22 12/12/22 Range/Units 23:55 00:34 WBC (4.8-10.8) K/ul RBC (4.70-6.10) M/uL Hgb (14.0-18.0) g/dl Hct (42.0-52.0) % MCV (80.0-100.0) fL MCH (25.0-34.0) pg MCHC (32.0-36.0) g/dL RDW Std Deviation (36.4-46.3) fL RDW Coeff of Dean (11.5-14.5) % Plt Count (130-400) K/uL MPV (9.4-12.4) fL Immature Gran % (Auto) % Neut % (Auto) % Lymph % (Auto) % [place] % (Auto) % Eos % (Auto) % Baso % (Auto) % Neut # (Auto) (1.40-6.50) K/uL Lymph # (Auto) (1.20-3.40) K/uL [place] # (Auto) (0.11-0.59) K/uL Eos # (Auto) (0.00-0.50) K/uL Baso # (Auto) (0.00-0.20) K/uL Immature Gran # (Auto) (0.01-0.20) K/uL Dohle Bodies Polychromasia Echinocytes PT (9.0-12.0) Seconds INR (0.9-1.1) APTT (21.0-31.0) Seconds PTT Ratio Sodium (136-145) mmol/L Potassium (3.5-5.1) mmol/L Chloride (98-107) mmol/L Carbon Dioxide (21-32) mmol/L Anion Gap (3-11) BUN (6-23) mg/dl Creatinine (0.6-1.4) mg/dl Est Cr Clr Drug Dosing ml/min Est GFR ( Amer) ml/min Est GFR (Non-Af Amer) ml/min BUN/Creatinine Ratio (10-20) Glucose (70-99(Fasting)) mg/dl Osmolality (280-300) mOsm/kg Lactate 2.0 (0.4-2.0) mmol/L Calcium (8.6-10.3) mg/dl Total Bilirubin (0.2-1.0) mg/dl AST (13-39) U/L ALT (7-52) U/L Alkaline Phosphatase (34-104) U/L Ammonia (18-72) umol/L Total Protein (6.0-8.3) gm/dl Albumin (3.4-5.0) gm/dl Globulin (2.5-4.0) gm/dl Albumin/Globulin Ratio (0.9-2) Procalcitonin (0-0.5) ng/ml Urine Color Dark Yellow Urine Appearance Clear (Clear) Urine pH 5.0 (4.5-7.5) Ur Specific [place] 1.017 (1.000-1.030) Urine Protein Negative (Negative) Urine Glucose (UA) Negative (Negative) Urine Ketones Negative (Negative) Urine Blood 2+ H (Negative) Urine Nitrite Negative (Negative) Urine Bilirubin Negative (Negative) Urine Urobilinogen Negative (Negative) Ur Leukocyte Esterase Negative (Negative) Urine WBC (Auto) 1-5 (0-5) /hpf Urine RBC (Auto) 5-10 H (0-4) /hpf U Hyaline Cast (Auto) 5-10 H (0-5) /lpf U Epithel Cells (Auto) 10-20 H (0-5) /lpf Urine Bacteria (Auto) Negative (Negative) Administered Medications Discontinued Medications Fentanyl Citrate (Fentanyl Citrate Pf 100 Mcg/2 Ml Vial) 50 mcg IV NOW STA Stop: 12/11/22 23:38 Last Admin: 12/11/22 23:43 Dose: 50 mcg Documented By: AN Albumin Human (Albumin 25%) 25 gm in 100 mls @ 50 mls/hr IV ONE ONE Stop: 12/12/22 01:36 Last Admin: 12/11/22 23:43 Dose: 50 mls/hr Documented By: AN Piperacillin Sod/Tazobactam Sod (Zosyn) 4.5 gm in 120 mls @ 240 mls/hr IV NOW ONE Stop: 12/12/22 00:06 Last Infusion: 12/12/22 00:57 Dose: 0 mls/hr Documented By: Admin: 12/12/22 00:22 Dose: 240 mls/hr Documented By: LAURA Sodium Chloride (Nss 1000ml) 500 mls @ 999 mls/hr IV .Q31M ONE Stop: 12/12/22 00:07 Last Infusion: 12/12/22 00:58 Dose: 0 mls/hr Documented By: Admin: 12/11/22 23:44 Dose: 999 mls/hr Documented By: AN Imaging Data Radiologist's Impression: Abdomen/Pelvis CT 12/11/22 23:37 Exam(s): CT ABDOMEN + PELVIS Without Contrast EXAM: CT Abdomen and Pelvis Without Intravenous Contrast CLINICAL HISTORY: Reason for exam: fall, distended, cirrhosis, OMAIRA. TECHNIQUE: Axial computed tomography images of the abdomen and pelvis without intravenous contrast. Automated exposure control was utilized for the study. A dose lowering technique was utilized adhering to the principles of ALARA. COMPARISON: No relevant prior studies available. FINDINGS: Lung bases: Unremarkable. No mass. No consolidation. ABDOMEN: Liver: Cirrhosis. Abdominal and pelvic ascites. Gallbladder and bile ducts: Unremarkable. No calcified stones. No ductal dilation. Pancreas: Unremarkable. No ductal dilation. Spleen: Unremarkable. No splenomegaly. Adrenals: Unremarkable. No mass. Kidneys and ureters: Unremarkable. No obstructing stones. No hydronephrosis. Stomach and bowel: Diverticulosis. No obstruction. No mucosal thickening. PELVIS: Appendix: No findings to suggest acute appendicitis. Bladder: Unremarkable. No stones. Reproductive: Unremarkable as visualized. ABDOMEN and PELVIS: Intraperitoneal space: See above. Bones/joints: Degenerative changes of the spine. No acute fracture. No dislocation. Soft tissues: Anasarca. Vasculature: Atherosclerotic changes of the aorta. No abdominal aortic aneurysm. Lymph nodes: Unremarkable. No enlarged lymph nodes. IMPRESSION: No acute findings in the abdomen or pelvis. Electronically signed by: Terry Wood MD 12/12/22 01:[address] 12/11/22 23:37 Exam(s): CT C SPINE EXAM: CT Cervical Spine Without Intravenous Contrast CLINICAL HISTORY: Reason for exam: falls. TECHNIQUE: Axial computed tomography images of the cervical spine without intravenous contrast. Automated exposure control was utilized for the study. A dose lowering technique was utilized adhering to the principles of ALARA. COMPARISON: No relevant prior studies available. FINDINGS: The vertebral body heights are maintained. The craniocervical junction is intact. The atlanto-dens interval is maintained. The dens is intact. There is no spondylolisthesis. Multilevel cervical spondylosis and degenerative disc disease. Straightening of the cervical lordosis. The unenhanced neck soft tissues are grossly unremarkable. The visualized lung apices are grossly clear. IMPRESSION: No acute fracture or subluxation of the cervical spine. Electronically signed by: Terry Wood MD 12/12/22 01:[address] 12/11/22 23:37 Exam(s): CT CHEST Without Contrast EXAM: CT Chest Without Intravenous Contrast CLINICAL HISTORY: Reason for exam: falls. TECHNIQUE: Axial computed tomography images of the chest without intravenous contrast. Automated exposure control was utilized for the study. A dose lowering technique was utilized adhering to the principles of ALARA. COMPARISON: No relevant prior studies available. FINDINGS: Lungs: Unremarkable. No mass. No consolidation. Pleural space: Unremarkable. No pneumothorax. No significant effusion. Heart: Unremarkable. No cardiomegaly. No significant pericardial effusion. No significant coronary artery calcifications. Bones/joints: Degenerative changes of the spine. No acute fracture. No dislocation. Soft tissues: Mild bilateral gynecomastia. Vasculature: Atherosclerotic changes of the aorta. No thoracic aortic aneurysm. Lymph nodes: Unremarkable. No enlarged lymph nodes. IMPRESSION: No acute findings in the chest. Electronically signed by: Terry Wood MD 12/12/22 01:[address] 12/11/22 23:37 Exam(s): CT HEAD Without Contrast EXAM: CT Head Without Intravenous Contrast CLINICAL HISTORY: Reason for exam: falls. TECHNIQUE: Axial computed tomography images of the head/brain without intravenous contrast. Automated exposure control was utilized for the study. A dose lowering technique was utilized adhering to the principles of ALARA. COMPARISON: No relevant prior studies available. FINDINGS: No acute intracranial hemorrhage. No midline shift or mass effect. The [place]-white matter differentiation is maintained throughout. Age-related cerebral volume loss. Periventricular and subcortical white matter hypoattenuation, consistent with chronic microangiopathy. The visualized orbits appear grossly unremarkable. The calvarium is intact. The visualized paranasal sinuses and mastoid air cells are grossly clear. IMPRESSION: No acute intracranial hemorrhage, midline shift, or mass effect. Electronically signed by: Terry Wood MD 12/12/22 00:59 AM Discharge Plan Visit Data Chief Complaint: Fall Stated Complaint: FALLS ED Provider: Stacy,Tony T Discharge Problem: Decompensated hepatic cirrhosis, Acute hyponatremia, Hepatorenal syndrome Patient Disposition: Being Evaluated by Hospitalist Forms Stand Alone Forms: My [facility] Prescriptions Prescriptions: No Action furosemide 40 mg tablet 40 mg PO DAILY Qty: 30 0RF spironolactone 100 mg Tablet 100 mg PO DAILY Qty: 30 0RF Referrals Referrals: PCP,NO [Primary Care Provider] -
[2022-12-12 00:51] LABS: Appearance Urine Clear (Clear); Bacteria Urine Automated Negative (Negative); Bilirubin Urine Negative (Negative); Blood Urine 2+ (Negative); Color Urine Dark Yellow; Glucose Urine UA Negative (Negative); Ketones Urine Negative (Negative); Leukocyte Esterase Urine Negative (Negative); Nitrite Urine Negative (Negative); Protein Urine Negative (Negative); Specific Gravity Urine 1.017 (1.000-1.030); Urobilinogen Urine Negative (Negative)
--- NOTE | 2022-12-12 01:00 | CT Scan Report ---
Exam(s): CT HEAD Without Contrast EXAM: CT Head Without Intravenous Contrast CLINICAL HISTORY: Reason for exam: falls. TECHNIQUE: Axial computed tomography images of the head/brain without intravenous contrast. Automated exposure control was utilized for the study. A dose lowering technique was utilized adhering to the principles of ALARA. COMPARISON: No relevant prior studies available. FINDINGS: No acute intracranial hemorrhage. No midline shift or mass effect. The [place]-white matter differentiation is maintained throughout. Age-related cerebral volume loss. Periventricular and subcortical white matter hypoattenuation, consistent with chronic microangiopathy. The visualized orbits appear grossly unremarkable. The calvarium is intact. The visualized paranasal sinuses and mastoid air cells are grossly clear. IMPRESSION: No acute intracranial hemorrhage, midline shift, or mass effect. Electronically signed by: Terry Wood MD 12/12/22 00:59 AM
--- NOTE | 2022-12-12 01:01 | CT Scan Report ---
Exam(s): CT C SPINE EXAM: CT Cervical Spine Without Intravenous Contrast CLINICAL HISTORY: Reason for exam: falls. TECHNIQUE: Axial computed tomography images of the cervical spine without intravenous contrast. Automated exposure control was utilized for the study. A dose lowering technique was utilized adhering to the principles of ALARA. COMPARISON: No relevant prior studies available. FINDINGS: The vertebral body heights are maintained. The craniocervical junction is intact. The atlanto-dens interval is maintained. The dens is intact. There is no spondylolisthesis. Multilevel cervical spondylosis and degenerative disc disease. Straightening of the cervical lordosis. The unenhanced neck soft tissues are grossly unremarkable. The visualized lung apices are grossly clear. IMPRESSION: No acute fracture or subluxation of the cervical spine. Electronically signed by: Terry Wood MD 12/12/22 01:00 AM
--- NOTE | 2022-12-12 01:08 | CT Scan Report ---
Exam(s): CT CHEST Without Contrast EXAM: CT Chest Without Intravenous Contrast CLINICAL HISTORY: Reason for exam: falls. TECHNIQUE: Axial computed tomography images of the chest without intravenous contrast. Automated exposure control was utilized for the study. A dose lowering technique was utilized adhering to the principles of ALARA. COMPARISON: No relevant prior studies available. FINDINGS: Lungs: Unremarkable. No mass. No consolidation. Pleural space: Unremarkable. No pneumothorax. No significant effusion. Heart: Unremarkable. No cardiomegaly. No significant pericardial effusion. No significant coronary artery calcifications. Bones/joints: Degenerative changes of the spine. No acute fracture. No dislocation. Soft tissues: Mild bilateral gynecomastia. Vasculature: Atherosclerotic changes of the aorta. No thoracic aortic aneurysm. Lymph nodes: Unremarkable. No enlarged lymph nodes. IMPRESSION: No acute findings in the chest. Electronically signed by: Terry Wood MD 12/12/22 01:07 AM
--- NOTE | 2022-12-12 01:09 | CT Scan Report ---
Exam(s): CT ABDOMEN + PELVIS Without Contrast EXAM: CT Abdomen and Pelvis Without Intravenous Contrast CLINICAL HISTORY: Reason for exam: fall, distended, cirrhosis, OMAIRA. TECHNIQUE: Axial computed tomography images of the abdomen and pelvis without intravenous contrast. Automated exposure control was utilized for the study. A dose lowering technique was utilized adhering to the principles of ALARA. COMPARISON: No relevant prior studies available. FINDINGS: Lung bases: Unremarkable. No mass. No consolidation. ABDOMEN: Liver: Cirrhosis. Abdominal and pelvic ascites. Gallbladder and bile ducts: Unremarkable. No calcified stones. No ductal dilation. Pancreas: Unremarkable. No ductal dilation. Spleen: Unremarkable. No splenomegaly. Adrenals: Unremarkable. No mass. Kidneys and ureters: Unremarkable. No obstructing stones. No hydronephrosis. Stomach and bowel: Diverticulosis. No obstruction. No mucosal thickening. PELVIS: Appendix: No findings to suggest acute appendicitis. Bladder: Unremarkable. No stones. Reproductive: Unremarkable as visualized. ABDOMEN and PELVIS: Intraperitoneal space: See above. Bones/joints: Degenerative changes of the spine. No acute fracture. No dislocation. Soft tissues: Anasarca. Vasculature: Atherosclerotic changes of the aorta. No abdominal aortic aneurysm. Lymph nodes: Unremarkable. No enlarged lymph nodes. IMPRESSION: No acute findings in the abdomen or pelvis. Electronically signed by: Terry Wood MD 12/12/22 01:08 AM
--- NOTE | 2022-12-12 03:46 | History & Physical Report ---
Date of Service December 12, 2022 Assessment & Plan (1) Acute hyponatremia: Plan: 62-year-old male past med significant for portal hypertension, alcoholic cirrhosis of liver with ascites, iron deficiency anemia, history of cocaine abuse, states he did drink alcohol last 1 year, having shingles in left lower rib cage extending to the back since last 1 month comes because of frequent falls and pain from his shingles and abdominal discomfort and found to have hypo natremia and leukocytosis. Hyponatremia Sodium 125 History of cirrhosis Getting gentle fluids Follow BMP every 6 hours Nephro consult in a.m. for further recommendation Leukocytosis Afebrile Has shingles rash but does not look like infected Some mild abdominal discomfort and ascites May need to do diagnostic and therapeutic tap ER ordered Zosyn which will be continued We will follow cultures Shingles Pain control. Alcoholic liver cirrhosis Continue home diuretics Elevated LFTs we will follow repeat labs Consult GI for further recommendations History of iron deficiency anemia Anemia of chronic disease Hemoglobin 8.1 We will follow the labs. Thrombocytopenia Platelets 94. We will follow the labs DVT prophylaxis SCDs for now Disposition telemetry floor Full code History of Present Illness Chief Complaint: Frequent falls, hyponatremia and shingles Primary Care Provider: NO PCP 62-year-old male past med significant for portal hypertension, alcoholic cirrhosis of liver with ascites, iron deficiency anemia, history of cocaine abuse, states last drink alcohol 1 year ago, having shingles in left lower rib cage extending to the back since last 1 month comes because of frequent falls and pain from his shingles and abdominal discomfort. Says he is falling frequently at home, ambulates with a cane. Denies any fevers. Denies any blood in stools. Says the stools are black because on iron pills. Micturating okay. Denies any chest pain or shortness of breath. No nausea. No headache. Vision is okay. No cough or sore throat. Patient is moaning and when asked why he states he is hurting all over and especially at shingles site . Past medical history as mentioned above Past surgical history colonoscopy, EGD Social history quit smoking in 1999 as per records. Says not drinking alcohol since last 1 year as per patient history of cocaine use. Family history no family history on file Allergies Allergy/AdvReac Type Severity Reaction Status Date / Time No Known Allergies Allergy Verified 12/12/22 01:54 Home Medications Medication Instructions Recorded Confirmed Type furosemide 40 mg tablet 40 mg PO QAM 12/12/22 12/12/22 History hydrocodone 5 mg-acetaminophen 325 1 tab PO Q6H PRN Pain 12/12/22 12/12/22 History mg tablet spironolactone 100 mg tablet 100 mg PO QAM 12/12/22 12/12/22 History Past Med/Surg History Medical History Decompensated hepatic cirrhosis Hx of fracture of patella Iron deficiency anemia Liver cirrhosis Right shoulder injury Surgical History Hx of appendectomy Social History Smoking Status: Former smoker Tobacco Type: Smokeless Tobacco (Dip or Chew) Do You Dip or Chew Tobacco: Yes; Tobacco Cessation Education Requested by Patient: No Hx Alcohol Use: No Hx Substance Use: No Preferred Language: Estonian Communication Ability: Effective Branding Specialist Required: No Beliefs That Will Affect Care: None Current Living Situation: Other Current Living Situation Comment: Lives with 11 year old son Feels Safe at Home: Yes Safety Concerns: Feels Safe At This Time Assistive Devices: Cane Assistive Devices Comment: reading glasses Review of Systems Review of Systems: All systems reviewed & are unremarkable except as noted in HPI & below Physical Exam Physical Exam: General- Not in acute distress Head- atraumatic Eyes- PERRL, ENT- oropharynx dry Neck- supple, no JVD,. Lungs- clear to auscultation, no wheezing or crackles. Heart- regular rhythm; no murmur, no gallop,. Abdomen- normal bowel sounds, soft, nontender, distended. Extremities- mild lower extremity edema present, no erythema seen. Neuro- alert, oriented x 3; PERRL, no facial palsy; no dysarthria; moves extremities. Skin- erythematous rash seen left lower rib cage extending in band like fashion to the back Results & Data Results & Data Vital Signs (Past 12 Hours) Vital Signs Temp Pulse Pulse Resp BP BP Pulse Ox 12/12/22 03:00 97 H 18 124/68 94 12/12/22 02:00 86 18 116/64 98 12/12/22 01:30 84 16 118/66 100 12/11/22 22:07 75 12/11/22 23:00 77 18 119/57 L 100 12/11/22 22:11 36.6 C 76 18 114/53 L 100 O2 Del Method 12/12/22 03:00 Room Air 12/12/22 02:00 Room Air 12/12/22 01:30 Room Air 12/11/22 22:07 12/11/22 23:00 Room Air 12/11/22 22:11 Room Air Diagnostic Findings Laboratory Results WBC 24.59 K/ul (4.8-10.8) H 12/11/22 22:08 RBC 2.68 M/uL (4.70-6.10) L 12/11/22 22:08 Hgb 8.1 g/dl (14.0-18.0) L 12/11/22 22:08 Hct 24.5 % (42.0-52.0) L 12/11/22 22:08 MCV 91.4 fL (80.0-100.0) 12/11/22 22:08 MCH 30.2 pg (25.0-34.0) 12/11/22 22:08 MCHC 33.1 g/dL (32.0-36.0) 12/11/22 22:08 RDW Std Deviation 55.9 fL (36.4-46.3) H 12/11/22 22:08 RDW Coeff of Dean 16.7 % (11.5-14.5) H 12/11/22 22:08 Plt Count 94 K/uL (130-400) L 12/11/22 22:08 MPV 11.2 fL (9.4-12.4) 12/11/22 22:08 Immature Gran % (Auto) 3.9 % 12/11/22 22:08 Neut % (Auto) 82.7 % 12/11/22 22:08 Lymph % (Auto) 4.1 % 12/11/22 22:08 [place] % (Auto) 9.0 % 12/11/22 22:08 Eos % (Auto) 0.1 % 12/11/22 22:08 Baso % (Auto) 0.2 % 12/11/22 22:08 Neut # (Auto) 20.32 K/uL (1.40-6.50) H 12/11/22 22:08 Lymph # (Auto) 1.01 K/uL (1.20-3.40) L 12/11/22 22:08 [place] # (Auto) 2.22 K/uL (0.11-0.59) H 12/11/22 22:08 Eos # (Auto) 0.02 K/uL (0.00-0.50) 12/11/22 22:08 Baso # (Auto) 0.05 K/uL (0.00-0.20) 12/11/22 22:08 Immature Gran # (Auto) 0.97 K/uL (0.01-0.20) H 12/11/22 22:08 Dohle Bodies 1+ 12/11/22 22:08 Polychromasia 1+ 12/11/22 22:08 Echinocytes 2+ 12/11/22 22:08 PT 16.1 Seconds (9.0-12.0) H 12/11/22 22:08 INR 1.5 (0.9-1.1) H 12/11/22 22:08 APTT 36.5 Seconds (21.0-31.0) H 12/11/22 22:08 PTT Ratio 1.3 12/11/22 22:08 Sodium 125 mmol/L (136-145) L 12/11/22 22:08 Potassium 4.3 mmol/L (3.5-5.1) 12/11/22 22:08 Chloride 98 mmol/L (98-107) 12/11/22 22:08 Carbon Dioxide 20 mmol/L (21-32) L 12/11/22 22:08 Anion Gap 7 (3-11) 12/11/22 22:08 BUN 43 mg/dl (6-23) H 12/11/22 22:08 Creatinine 1.80 mg/dl (0.6-1.4) H 12/11/22 22:08 Est Cr Clr Drug Dosing 57.5 ml/min 12/11/22 22:08 Est GFR ( Amer) 46.1 ml/min 12/11/22 22:08 Est GFR (Non-Af Amer) 39.7 ml/min 12/11/22 22:08 BUN/Creatinine Ratio 23.9 (10-20) H 12/11/22 22:08 Glucose 132 mg/dl (70-99(Fasting)) H 12/11/22 22:08 Osmolality 279 mOsm/kg (280-300) L 12/11/22 22:08 Lactate 2.0 mmol/L (0.4-2.0) 12/11/22 23:55 Calcium 7.6 mg/dl (8.6-10.3) L 12/11/22 22:08 Total Bilirubin 2.3 mg/dl (0.2-1.0) H 12/11/22 22:08 AST 276 U/L (13-39) H 12/11/22 22:08 ALT 57 U/L (7-52) H 12/11/22 22:08 Alkaline Phosphatase 152 U/L (34-104) H 12/11/22 22:08 Ammonia 30.0 umol/L (18-72) 12/11/22 23:55 Total Protein 5.3 gm/dl (6.0-8.3) L 12/11/22 22:08 Albumin 2.2 gm/dl (3.4-5.0) L 12/11/22 22:08 Globulin 3.1 gm/dl (2.5-4.0) 12/11/22 22:08 Albumin/Globulin Ratio 0.7 (0.9-2) L 12/11/22 22:08 Procalcitonin 12.54 ng/ml (0-0.5) H 12/11/22 22:08 Urine Color Dark Yellow 12/12/22 00:34 Urine Appearance Clear (Clear) 12/12/22 00:34 Urine pH 5.0 (4.5-7.5) 12/12/22 00:34 Ur Specific [place] 1.017 (1.000-1.030) 12/12/22 00:34 Urine Protein Negative (Negative) 12/12/22 00:34 Urine Glucose (UA) Negative (Negative) 12/12/22 00:34 Urine Ketones Negative (Negative) 12/12/22 00:34 Urine Blood 2+ (Negative) H 12/12/22 00:34 Urine Nitrite Negative (Negative) 12/12/22 00:34 Urine Bilirubin Negative (Negative) 12/12/22 00:34 Urine Urobilinogen Negative (Negative) 12/12/22 00:34 Ur Leukocyte Esterase Negative (Negative) 12/12/22 00:34 Urine WBC (Auto) 1-5 /hpf (0-5) 12/12/22 00:34 Urine RBC (Auto) 5-10 /hpf (0-4) H 12/12/22 00:34 U Hyaline Cast (Auto) 5-10 /lpf (0-5) H 12/12/22 00:34 U Epithel Cells (Auto) 10-20 /lpf (0-5) H 12/12/22 00:34 Urine Bacteria (Auto) Negative (Negative) 12/12/22 00:34 Urine Osmolality 437 mOsm/kg (500-800) L 12/12/22 00:34 Impressions Abdomen/Pelvis CT 12/11/22 23:37 Exam(s): CT ABDOMEN + PELVIS Without Contrast EXAM: CT Abdomen and Pelvis Without Intravenous Contrast CLINICAL HISTORY: Reason for exam: fall, distended, cirrhosis, OMAIRA. TECHNIQUE: Axial computed tomography images of the abdomen and pelvis without intravenous contrast. Automated exposure control was utilized for the study. A dose lowering technique was utilized adhering to the principles of ALARA. COMPARISON: No relevant prior studies available. FINDINGS: Lung bases: Unremarkable. No mass. No consolidation. ABDOMEN: Liver: Cirrhosis. Abdominal and pelvic ascites. Gallbladder and bile ducts: Unremarkable. No calcified stones. No ductal dilation. Pancreas: Unremarkable. No ductal dilation. Spleen: Unremarkable. No splenomegaly. Adrenals: Unremarkable. No mass. Kidneys and ureters: Unremarkable. No obstructing stones. No hydronephrosis. Stomach and bowel: Diverticulosis. No obstruction. No mucosal thickening. PELVIS: Appendix: No findings to suggest acute appendicitis. Bladder: Unremarkable. No stones. Reproductive: Unremarkable as visualized. ABDOMEN and PELVIS: Intraperitoneal space: See above. Bones/joints: Degenerative changes of the spine. No acute fracture. No dislocation. Soft tissues: Anasarca. Vasculature: Atherosclerotic changes of the aorta. No abdominal aortic aneurysm. Lymph nodes: Unremarkable. No enlarged lymph nodes. IMPRESSION: No acute findings in the abdomen or pelvis. Electronically signed by: Terry Wood MD 12/12/22 01:[address] 12/11/22 23:37 Exam(s): CT C SPINE EXAM: CT Cervical Spine Without Intravenous Contrast CLINICAL HISTORY: Reason for exam: falls. TECHNIQUE: Axial computed tomography images of the cervical spine without intravenous contrast. Automated exposure control was utilized for the study. A dose lowering technique was utilized adhering to the principles of ALARA. COMPARISON: No relevant prior studies available. FINDINGS: The vertebral body heights are maintained. The craniocervical junction is intact. The atlanto-dens interval is maintained. The dens is intact. There is no spondylolisthesis. Multilevel cervical spondylosis and degenerative disc disease. Straightening of the cervical lordosis. The unenhanced neck soft tissues are grossly unremarkable. The visualized lung apices are grossly clear. IMPRESSION: No acute fracture or subluxation of the cervical spine. Electronically signed by: Terry Wood MD 12/12/22 01:[address] 12/11/22 23:37 Exam(s): CT CHEST Without Contrast EXAM: CT Chest Without Intravenous Contrast CLINICAL HISTORY: Reason for exam: falls. TECHNIQUE: Axial computed tomography images of the chest without intravenous contrast. Automated exposure control was utilized for the study. A dose lowering technique was utilized adhering to the principles of ALARA. COMPARISON: No relevant prior studies available. FINDINGS: Lungs: Unremarkable. No mass. No consolidation. Pleural space: Unremarkable. No pneumothorax. No significant effusion. Heart: Unremarkable. No cardiomegaly. No significant pericardial effusion. No significant coronary artery calcifications. Bones/joints: Degenerative changes of the spine. No acute fracture. No dislocation. Soft tissues: Mild bilateral gynecomastia. Vasculature: Atherosclerotic changes of the aorta. No thoracic aortic aneurysm. Lymph nodes: Unremarkable. No enlarged lymph nodes. IMPRESSION: No acute findings in the chest. Electronically signed by: Terry Wood MD 12/12/22 01:[address] 12/11/22 23:37 Exam(s): CT HEAD Without Contrast EXAM: CT Head Without Intravenous Contrast CLINICAL HISTORY: Reason for exam: falls. TECHNIQUE: Axial computed tomography images of the head/brain without intravenous contrast. Automated exposure control was utilized for the study. A dose lowering technique was utilized adhering to the principles of ALARA. COMPARISON: No relevant prior studies available. FINDINGS: No acute intracranial hemorrhage. No midline shift or mass effect. The [place]-white matter differentiation is maintained throughout. Age-related cerebral volume loss. Periventricular and subcortical white matter hypoattenuation, consistent with chronic microangiopathy. The visualized orbits appear grossly unremarkable. The calvarium is intact. The visualized paranasal sinuses and mastoid air cells are grossly clear. IMPRESSION: No acute intracranial hemorrhage, midline shift, or mass effect. Electronically signed by: Terry Wood MD 12/12/22 00:59 AM ECG Additional Comments: ECG normal sinus rhythm rate [address] seen Code Status & VTE Plan VTE Prophylaxis Plan VTE Prophylaxis will be ordered: Yes
[2022-12-12] MEDS ORDERED: oxyCODONE HCL IR 5 MG TAB (IMMEDIATE RELEASE) PO PRN (04:20)
[2022-12-12] MEDS ORDERED: NITROGLYCERIN SL 0.4 MG/TAB TAB SL PRN (04:20)
[2022-12-12] MEDS ORDERED: HYDROmorphone INJ 0.5 MG/0.5 ML SYR IV PRN (04:20)
[2022-12-12] MEDS ORDERED: SODIUM CHLORIDE 0.9% 1,000 ML IV SCH (04:20)
[2022-12-12 05:41] LABS: Albumin Level 2.3 gm/dl (3.4-5.0); BUN Creatinine Ratio 26.8 (10-20); Bilirubin,Total 2.5 mg/dl (0.2-1.0); Calcium 7.6 mg/dl (8.6-10.3); Creatinine Clr Calc Pharmacy 61.6 ml/min; Est GFR (African American) 50.1 ml/min; Est GFR (Non-African American) 43.2 ml/min; Potassium 4.7 mmol/L (3.5-5.1); Total Protein 4.8 gm/dl (6.0-8.3)
[2022-12-12] MEDS: PIPERACILLIN/TAZOBACTAM 4.5 GM in DEXTROSE 5% 100 ML IV SCH ×2 (06:17→16:45)
[2022-12-12 07:01] LABS: Acanthocytes 2+; Basophils # (auto) 0.05 K/uL (0.00-0.20); Basophils % (auto) 0.3 %; Echinocytes 2+; Eosinophils # (auto) 0.01 K/uL (0.00-0.50); Eosinophils % (auto) 0.1 %; Hematocrit (blood only) 24.8 % (42.0-52.0); Hemoglobin 8.2 g/dl (14.0-18.0); Immature Granulocytes # (auto) 0.22 K/uL (0.01-0.20); Immature Granulocytes % (auto) 1.3 %; Lymphocytes # (auto) 0.37 K/uL (1.20-3.40); Lymphocytes % (auto) 2.1 %; Mean Corpuscular Hemoglobin 30.1 pg (25.0-34.0); Mean Corpuscular Hgb Conc 33.1 g/dL (32.0-36.0); Mean Corpuscular Volume 91.2 fL (80.0-100.0); Mean Platelet Volume 10.8 fL (9.4-12.4); Monocytes # (auto) 0.93 K/uL (0.11-0.59); Monocytes % (auto) 5.4 %; Neutrophils # (auto) 15.72 K/uL (1.40-6.50); Neutrophils % (auto) 90.8 %; Platelet Count 85 K/uL (130-400); Polychromasia 1+; RDW Coefficient of Variation 16.3 % (11.5-14.5); RDW Standard Deviation 54.6 fL (36.4-46.3); Red Blood Count 2.72 M/uL (4.70-6.10)
[2022-12-12] MEDS ORDERED: SPIRONOLACTONE 100 MG TAB PO SCH (09:00)
[2022-12-12] MEDS ORDERED: FUROSEMIDE 40 MG TAB PO SCH (09:00)
[2022-12-12 10:32] LABS: A calco-baum cmplx NotReported Not Detected (NotDetected); Bact fragilis Not Reported Not Detected (NotDetected); C auris Not Reported Not Detected (NotDetected); Calbicans Not Reported Not Detected (NotDetected); Candida glabrata Not Reported Not Detected (NotDetected); Candida krusei Not Reported Not Detected (NotDetected); Cneoformans/gatti Not Reported Not Detected (NotDetected); Cparapsilosis Not Reported Not Detected (NotDetected); Ctropicalis Not Reported Not Detected (NotDetected); E cloacae compx Not Reported Not Detected (NotDetected); Efaecalis Not Reported Not Detected (NotDetected); Efaecium Not Reported Not Detected (NotDetected); Enterobacterales Not Reported Not Detected (NotDetected); Escherichia coli Not Reported Not Detected (NotDetected); H influenzae Not Reported Not Detected (NotDetected); K aerogenes Not Reported Not Detected (NotDetected); Koxytoca Not Reported Not Detected (NotDetected); Kpneumoniae grp Not Reported Not Detected (NotDetected); Lmonocyt Not Reported Not Detected (NotDetected); N meningitidis Not Reported Not Detected (NotDetected); P aeruginosa Not Reported Not Detected (NotDetected); Proteus spp Not Reported Not Detected (NotDetected); Salmonella spp Not Reported Not Detected (NotDetected); Smarcescens Not Reported Not Detected (NotDetected); Staph lugdunensis Not Reported Not Detected (NotDetected); Staph spp. Not Reported Not Detected (NotDetected); Staphaureus Not Reported Not Detected (NotDetected); Staphepi Not Reported Not Detected (NotDetected); Stenmaltophilia Not Reported Not Detected (NotDetected); Strep agal(GrpB) Not Reported DETECTED (NotDetected); Strep pneum Not Reported Not Detected (NotDetected); Strep pyog (GrpA) Not Reported Not Detected (NotDetected); Strep spp Not Reported DETECTED (NotDetected); Streptococcus spp DETECTED (NotDetected)
[2022-12-12 10:48] LABS: Streptococcus agalactiae(GrpB) DETECTED (NotDetected)
[2022-12-12 11:27] LABS: Calcium 7.7 mg/dl (8.6-10.3); Potassium 4.9 mmol/L (3.5-5.1)
[2022-12-12 11:33] LABS: BUN Creatinine Ratio 26.3 (10-20); Creatinine Clr Calc Pharmacy 57.8 ml/min; Est GFR (African American) 46.4 ml/min
--- NOTE | 2022-12-12 12:43 | Nephrology Consultation ---
Date of Consultation December 12, 2022 Assessment & Plan (1) Hyponatremia: new onset moderate to severe hypervolemic hyponatremia -continue FR 2L and low sodium diet -encourage protein intake > protein shakes do not count toward this -stopped NS -control shingles pain -recheck bmp ordered for 1800 (2) OMAIRA (acute kidney injury): Stage 1 nonoliguric OMAIRA versus CKD emerging in setting of obligate diuretics and w/ microhematuria, active shingles -too early to call this HRS; needs 48 hrs of albumin to start -stopped NS; started albumin -ordered protein/creat, repeat UACM, rd urine sodium History of Present Illness Reason for Consultation: hyponatremia Requesting Physician: Dr Martinez Attending Physician: Misha Melendez MD History of Present Illness 62 y/o M whom I'm asked to see for hyponatremia was admitted overnight with same (admission sodium 125) after presenting with frequent falls, uncontrolled pain from shingles, abdominal discomfort. PMH alcoholic liver cirrhosis with ascites and portal HTN, iron deficiency anemia, history of cocaine abuse. Also w/ L lower rib shingles past month and recent onset ambulatory dysfunction, now using cane. Abstinent from EtOH x 1 year. OP [facility] labs reviewed > no prior hx of hyponatremia or CKD. He was s tarted on OP diuretics in early 2022 and doses have been stable per OP records since about May. no OP urine studies He takes lasix 40 mg and spironolactone 100 mg both daily as OP. He had a dose of albumin and a 1/2 L bolus of NS; then started on NS at 50 mL/hr. OP diuretics held. Sodium is unchanged this am. Creatinine 1.8 on presentation, also unchanged this am from baseline in September of 1.0. diffuse body pain on presentation-by the time I evaluated him he had pain meds on boards and fatigue limited ROS to an extent; no f/c; no new/worrisome voiding concerns. no n/v/d/melena/hematochezia; no ARMENTA or vision changes. no injuries w/ falls. FH > no FH on file and pt not giving hx. Allergies Allergy/AdvReac Type Severity Reaction Status Date / Time No Known Allergies Allergy Verified 12/12/22 01:54 Home Medications Medication Instructions Recorded Confirmed Type furosemide 40 mg tablet 40 mg PO QAM 12/12/22 12/12/22 History hydrocodone 5 mg-acetaminophen 325 1 tab PO Q6H PRN Pain 12/12/22 12/12/22 History mg tablet spironolactone 100 mg tablet 100 mg PO QAM 12/12/22 12/12/22 History Patient History Medical History Decompensated hepatic cirrhosis Hx of fracture of patella Iron deficiency anemia Liver cirrhosis Right shoulder injury Surgical History Hx of appendectomy Social History Smoking Status: Former smoker Tobacco Type: Smokeless Tobacco (Dip or Chew) Do You Dip or Chew Tobacco: Yes; Tobacco Cessation Education Requested by Patient: No Hx Alcohol Use: No Hx Substance Use: No Preferred Language: Samoan Communication Ability: Effective Metal Window Frame Maker Required: No Beliefs That Will Affect Care: None Current Living Situation: Other Current Living Situation Comment: Lives with 11 year old son Feels Safe at Home: Yes Safety Concerns: Feels Safe At This Time Assistive Devices: Cane Assistive Devices Comment: reading glasses Review of Systems Review of Systems: All systems reviewed & are unremarkable except as noted in HPI & below Physical Exam Constitutional: well developed, well nourished, + frail appearing and + lethargic; no acute distress Eyes: EOM intact bilaterally ENMT: Ears: no external ear abnormality Nose: no external nose abnormality Mouth: + dry oral mucous membranes Neck: no nuchal rigidity Respiratory: normal respiratory effort Auscultation: + diminished lung sounds Cardiovascular: Rate/Rhythm: regular rate and regular rhythm Extremities: + edema (1+) Gastrointestinal (Abdomen): Inspection/Auscultation: + abdomen distended and normal bowel sounds Percussion/Palpation: abdomen soft and + ascites; abdomen nontender Musculoskeletal: Extremities: strength 5/5 throughout Skin: scabbed dermatomal rash mid L abdomen no vesicles Neurologic: freeman, very limited speech, no tremor Results & Data Vital Signs (Past 12 Hours) Vital Signs Temp Pulse Pulse Resp BP BP Pulse Ox 12/12/22 12:05 82 18 116/71 93 12/12/22 10:00 90 17 97 12/12/22 10:00 115/65 12/12/22 09:00 93 H 16 96 12/12/22 09:00 110/58 L 12/12/22 08:43 91/50 L 12/12/22 08:43 94 H 18 96 12/12/22 08:00 93 H 19 96 12/12/22 08:00 91/57 L 12/12/22 07:16 101/57 L 12/12/22 07:16 94 H 22 96 12/12/22 08:03 12/12/22 08:03 36.6 C 96 H 22 101/57 L 96 12/12/22 07:00 94 H 17 97 12/12/22 06:00 97 H 20 96 12/12/22 05:00 93 H 18 97 12/12/22 04:30 110/67 12/12/22 04:30 93 H 18 99 12/12/22 04:00 99 12/12/22 04:00 121/68 12/12/22 03:30 101 H 22 81 L 12/12/22 03:30 135/74 12/12/22 03:00 93 H 23 99 12/12/22 03:00 124/68 12/12/22 02:00 88 19 98 12/12/22 02:00 116/67 12/12/22 01:30 100 12/12/22 01:30 118/66 12/12/22 01:00 84 21 12/12/22 00:30 137/75 12/12/22 00:30 80 17 99 12/12/22 04:30 94 H 17 110/67 98 12/12/22 04:30 12/12/22 04:00 92 H 17 121/68 99 12/12/22 02:00 86 12/12/22 03:00 97 H 18 124/68 94 12/12/22 02:00 86 18 116/64 98 12/12/22 01:30 84 16 118/66 100 Pulse Ox O2 Del Method O2 Del Method 12/12/22 12:05 Room Air 12/12/22 10:00 12/12/22 10:00 12/12/22 09:00 12/12/22 09:00 12/12/22 08:43 12/12/22 08:43 12/12/22 08:00 12/12/22 08:00 12/12/22 07:16 12/12/22 07:16 12/12/22 08:03 Room Air 12/12/22 08:03 Room Air 12/12/22 07:00 12/12/22 06:00 12/12/22 05:00 12/12/22 04:30 12/12/22 04:30 12/12/22 04:00 12/12/22 04:00 12/12/22 03:30 12/12/22 03:30 12/12/22 03:00 12/12/22 03:00 12/12/22 02:00 12/12/22 02:00 12/12/22 01:30 12/12/22 01:30 12/12/22 01:00 12/12/22 00:30 12/12/22 00:30 12/12/22 04:30 Room Air 12/12/22 04:30 98 Room Air 12/12/22 04:00 Room Air 12/12/22 02:00 12/12/22 03:00 Room Air 12/12/22 02:00 Room Air 12/12/22 01:30 Room Air Laboratory Results 12/12/22 05:06 12/12/22 10:57 uOsm 437; no Deon sOsm 279 Diagnostic Findings head, chest, CSpine CT all non con w/o acute process, though ascites noted
[2022-12-12] MEDS: ALBUMIN 25% 25 GM/100 ML VIAL IV SCH ×2 (13:23→20:48)
--- NOTE | 2022-12-12 14:31 | Hospitalist Progress Note ---
Date of Service December 12, 2022 Assessment & Plan (1) Acute hyponatremia: (2) OMAIRA (acute kidney injury): (3) Bacteremia: Plan: 62-year-old male past med significant for portal hypertension, alcoholic cirrhosis of liver with ascites, iron deficiency anemia, history of cocaine abuse, states he did drink alcohol last 1 year, having shingles in left lower rib cage extending to the back since last 1 month comes because of frequent falls, pain from his shingles and abdominal discomfort and found to have hyponatremia and leukocytosis. Gram-positive bacteremia 62-year-old male with history of decompensated liver cirrhosis presents with fall and abdominal discomfort History of singles since last 1 month Hypotensive on arrival; other vital stable. 4 out of 4 blood culture positive for gram-positive cocci in chains; blood culture positive for Streptococcus agalactiae Leukocytosis present; WBC count of 17,000 Currently on Zosyn continue for now. Await final cultures and sensitivity Obtain echocardiogram to rule out vegetation Repeat blood cultures tomorrow a.m. Will need diagnostic paracentesis to rule out SBP Acute kidney injury Hyponatremia Creatinine elevated to 1.8; baseline around 1. Likely in setting of sepsis/diuretics Sodium 125; likely secondary to OMAIRA Nephrology on board; recommended to stop normal saline. Recommended to start albumin. Protein/creatinine ratio and urine sodium orde red. Obtain daily BMP Avoid nephrotoxic agent Shingles Pain control. Alcoholic liver cirrhosis, decompensated Hold diuretics given OMAIRA, sepsis Elevated LFTs present Consult GI for further recommendations History of iron deficiency anemia Anemia of chronic disease Hemoglobin 8.1 We will follow the labs. Thrombocytopenia Secondary to decompensated liver cirrhosis. Monitor for now. DVT prophylaxis SCDs for now Disposition telemetry floor Full code Time spent evaluating patient, direct bedside care, chart review, placing orders, interpretation of diagnostic studies, discussion with consultants, patient, and family members, as well as other required patient management activities is 60 minutes. Please note the above document was generated using voice recognition software. It may contain grammatical, syntax or spelling errors. Any formal questions or concerns about the content, text or information contained within the body of this dictation should be directly addressed to the provider for clarification Admission and Anticipated Discharge Date Admission Date: December 12, 2022 Subjective Patient seen and examined at bedside. He is sitting up on the chair; not in distress. He denies fever, chills. He reports some abdominal discomfort. Review of Systems Review of Systems: All systems reviewed & are unremarkable except as noted in Subjective Physical Exam Physical Exam: Constitutional: WD/WN, vitals as above, NAD, sitting up in bed, pleasant, conversing easily Respiratory: Bilateral vesicular breath sound. Cardiovascular: RRR, no murmur, no edema Vessels: no JVD or carotid bruit Chest: normal inspection of chest Abdomen: normal bowel sounds, soft, nontender, no hepatosplenomegaly Musculoskeletal: no cyanosis or clubbing, extremities motor strength 5/5 Skin: Erythematous rash seen in lower rib cage extending in bandlike fashion to the back. Neurologic: PERRL, EOMI, accommodation nl, no face palsy, no dysarthria CN's II- XI intact bilaterally and moves all extremities Psychiatric: A+Ox3, euthymic affect Results & Data Results & Data Vital Signs (Past 12 Hours) Vital Signs Temp Pulse Pulse Resp BP BP Pulse Ox 12/12/22 13:15 82 18 98 12/12/22 12:05 82 18 116/71 93 12/12/22 10:00 90 17 97 12/12/22 10:00 115/65 12/12/22 09:00 93 H 16 96 12/12/22 09:00 110/58 L 12/12/22 08:43 91/50 L 12/12/22 08:43 94 H 18 96 12/12/22 08:00 93 H 19 96 12/12/22 08:00 91/57 L 12/12/22 07:16 101/57 L 12/12/22 07:16 94 H 22 96 12/12/22 08:03 12/12/22 08:03 36.6 C 96 H 22 101/57 L 96 12/12/22 07:00 94 H 17 97 12/12/22 06:00 97 H 20 96 12/12/22 05:00 93 H 18 97 12/12/22 04:30 110/67 12/12/22 04:30 93 H 18 99 12/12/22 04:00 99 12/12/22 04:00 121/68 12/12/22 03:30 101 H 22 81 L 12/12/22 03:30 135/74 12/12/22 03:00 93 H 23 99 12/12/22 03:00 124/68 12/12/22 04:30 94 H 17 110/67 98 12/12/22 04:30 12/12/22 04:00 92 H 17 121/68 99 12/12/22 03:00 97 H 18 124/68 94 Pulse Ox O2 Del Method O2 Del Method 12/12/22 13:15 Room Air 12/12/22 12:05 Room Air 12/12/22 10:00 12/12/22 10:00 12/12/22 09:00 12/12/22 09:00 12/12/22 08:43 12/12/22 08:43 12/12/22 08:00 12/12/22 08:00 12/12/22 07:16 12/12/22 07:16 12/12/22 08:03 Room Air 12/12/22 08:03 Room Air 12/12/22 07:00 12/12/22 06:00 12/12/22 05:00 12/12/22 04:30 12/12/22 04:30 12/12/22 04:00 12/12/22 04:00 12/12/22 03:30 12/12/22 03:30 12/12/22 03:00 12/12/22 03:00 12/12/22 04:30 Room Air 12/12/22 04:30 98 Room Air 12/12/22 04:00 Room Air 12/12/22 03:00 Room Air Laboratory Results Laboratory Results WBC 17.30 K/ul (4.8-10.8) H 12/12/22 05:06 RBC 2.72 M/uL (4.70-6.10) L 12/12/22 05:06 Hgb 8.2 g/dl (14.0-18.0) L 12/12/22 05:06 Hct 24.8 % (42.0-52.0) L 12/12/22 05:06 MCV 91.2 fL (80.0-100.0) 12/12/22 05:06 MCH 30.1 pg (25.0-34.0) 12/12/22 05:06 MCHC 33.1 g/dL (32.0-36.0) 12/12/22 05:06 RDW Std Deviation 54.6 fL (36.4-46.3) H 12/12/22 05:06 RDW Coeff of Dean 16.3 % (11.5-14.5) H 12/12/22 05:06 Plt Count 85 K/uL (130-400) L 12/12/22 05:06 MPV 10.8 fL (9.4-12.4) 12/12/22 05:06 Immature Gran % (Auto) 1.3 % 12/12/22 05:06 Neut % (Auto) 90.8 % 12/12/22 05:06 Lymph % (Auto) 2.1 % 12/12/22 05:06 Ballard % (Auto) 5.4 % 12/12/22 05:06 Eos % (Auto) 0.1 % 12/12/22 05:06 Baso % (Auto) 0.3 % 12/12/22 05:06 Neut # (Auto) 15.72 K/uL (1.40-6.50) H 12/12/22 05:06 Lymph # (Auto) 0.37 K/uL (1.20-3.40) L 12/12/22 05:06 Ballard # (Auto) 0.93 K/uL (0.11-0.59) H 12/12/22 05:06 Eos # (Auto) 0.01 K/uL (0.00-0.50) 12/12/22 05:06 Baso # (Auto) 0.05 K/uL (0.00-0.20) 12/12/22 05:06 Immature Gran # (Auto) 0.22 K/uL (0.01-0.20) H 12/12/22 05:06 Dohle Bodies 1+ 12/11/22 22:08 Polychromasia 1+ 12/12/22 05:06 Echinocytes 2+ 12/12/22 05:06 Acanthocytes (Spur) 2+ 12/12/22 05:06 PT 16.1 Seconds (9.0-12.0) H 12/11/22 22:08 INR 1.5 (0.9-1.1) H 12/11/22 22:08 APTT 36.5 Seconds (21.0-31.0) H 12/11/22 22:08 PTT Ratio 1.3 12/11/22 22:08 Sodium 125 mmol/L (136-145) L 12/12/22 10:57 Potassium 4.9 mmol/L (3.5-5.1) 12/12/22 10:57 Chloride 97 mmol/L (98-107) L 12/12/22 10:57 Carbon Dioxide 20 mmol/L (21-32) L 12/12/22 10:57 Anion Gap 8 (3-11) 12/12/22 10:57 BUN 47 mg/dl (6-23) H 12/12/22 10:57 Creatinine 1.79 mg/dl (0.6-1.4) H 12/12/22 10:57 Est Cr Clr Drug Dosing 57.8 ml/min 12/12/22 10:57 Est GFR ( Amer) 46.4 ml/min 12/12/22 10:57 Est GFR (Non-Af Amer) 40.0 ml/min 12/12/22 10:57 BUN/Creatinine Ratio 26.3 (10-20) H 12/12/22 10:57 Glucose 139 mg/dl (70-99(Fasting)) H 12/12/22 10:57 Osmolality 279 mOsm/kg (280-300) L 12/11/22 22:08 Lactate 2.0 mmol/L (0.4-2.0) 12/11/22 23:55 Calcium 7.7 mg/dl (8.6-10.3) L 12/12/22 10:57 Total Bilirubin 2.5 mg/dl (0.2-1.0) H 12/12/22 05:06 Direct Bilirubin 1.0 mg/dl (0-0.2) H 12/12/22 05:06 AST 266 U/L (13-39) H 12/12/22 05:06 ALT 56 U/L (7-52) H 12/12/22 05:06 Alkaline Phosphatase 155 U/L (34-104) H 12/12/22 05:06 Ammonia 30.0 umol/L (18-72) 12/11/22 23:55 Total Protein 4.8 gm/dl (6.0-8.3) L 12/12/22 05:06 Albumin 2.3 gm/dl (3.4-5.0) L 12/12/22 05:06 Globulin 3.1 gm/dl (2.5-4.0) 12/11/22 22:08 Albumin/Globulin Ratio 0.7 (0.9-2) L 12/11/22 22:08 Procalcitonin 12.54 ng/ml (0-0.5) H 12/11/22 22:08 Urine Color Dark Yellow 12/12/22 00:34 Urine Appearance Clear (Clear) 12/12/22 00:34 Urine pH 5.0 (4.5-7.5) 12/12/22 00:34 Ur Specific [place] 1.017 (1.000-1.030) 12/12/22 00:34 Urine Protein Negative (Negative) 12/12/22 00:34 Urine Glucose (UA) Negative (Negative) 12/12/22 00:34 Urine Ketones Negative (Negative) 12/12/22 00:34 Urine Blood 2+ (Negative) H 12/12/22 00:34 Urine Nitrite Negative (Negative) 12/12/22 00:34 Urine Bilirubin Negative (Negative) 12/12/22 00:34 Urine Urobilinogen Negative (Negative) 12/12/22 00:34 Ur Leukocyte Esterase Negative (Negative) 12/12/22 00:34 Urine WBC (Auto) 1-5 /hpf (0-5) 12/12/22 00:34 Urine RBC (Auto) 5-10 /hpf (0-4) H 12/12/22 00:34 U Hyaline Cast (Auto) 5-10 /lpf (0-5) H 12/12/22 00:34 U Epithel Cells (Auto) 10-20 /lpf (0-5) H 12/12/22 00:34 Urine Bacteria (Auto) Negative (Negative) 12/12/22 00:34 Urine Osmolality 437 mOsm/kg (500-800) L 12/12/22 00:34 Streptococcus sp PCR DETECTED (NotDetected) A 12/11/22 23:55 Strep agalactiae (PCR) DETECTED (NotDetected) A 12/11/22 23:55 Bld Cult ID Panel PCR See PCR Comment (NotDetected) 12/11/22 23:55 Impressions Abdomen/Pelvis CT 12/11/22 23:37 Exam(s): CT ABDOMEN + PELVIS Without Contrast EXAM: CT Abdomen and Pelvis Without Intravenous Contrast CLINICAL HISTORY: Reason for exam: fall, distended, cirrhosis, OMAIRA. TECHNIQUE: Axial computed tomography images of the abdomen and pelvis without intravenous contrast. Automated exposure control was utilized for the study. A dose lowering technique was utilized adhering to the principles of ALARA. COMPARISON: No relevant prior studies available. FINDINGS: Lung bases: Unremarkable. No mass. No consolidation. ABDOMEN: Liver: Cirrhosis. Abdominal and pelvic ascites. Gallbladder and bile ducts: Unremarkable. No calcified stones. No ductal dilation. Pancreas: Unremarkable. No ductal dilation. Spleen: Unremarkable. No splenomegaly. Adrenals: Unremarkable. No mass. Kidneys and ureters: Unremarkable. No obstructing stones. No hydronephrosis. Stomach and bowel: Diverticulosis. No obstruction. No mucosal thickening. PELVIS: Appendix: No findings to suggest acute appendicitis. Bladder: Unremarkable. No stones. Reproductive: Unremarkable as visualized. ABDOMEN and PELVIS: Intraperitoneal space: See above. Bones/joints: Degenerative changes of the spine. No acute fracture. No dislocation. Soft tissues: Anasarca. Vasculature: Atherosclerotic changes of the aorta. No abdominal aortic aneurysm. Lymph nodes: Unremarkable. No enlarged lymph nodes. IMPRESSION: No acute findings in the abdomen or pelvis. Electronically signed by: Terry Wood MD 12/12/22 01:[address] 12/11/22 23:37 Exam(s): CT C SPINE EXAM: CT Cervical Spine Without Intravenous Contrast CLINICAL HISTORY: Reason for exam: falls. TECHNIQUE: Axial computed tomography images of the cervical spine without intravenous contrast. Automated exposure control was utilized for the study. A dose lowering technique was utilized adhering to the principles of ALARA. COMPARISON: No relevant prior studies available. FINDINGS: The vertebral body heights are maintained. The craniocervical junction is intact. The atlanto-dens interval is maintained. The dens is intact. There is no spondylolisthesis. Multilevel cervical spondylosis and degenerative disc disease. Straightening of the cervical lordosis. The unenhanced neck soft tissues are grossly unremarkable. The visualized lung apices are grossly clear. IMPRESSION: No acute fracture or subluxation of the cervical spine. Electronically signed by: Terry Wood MD 12/12/22 01:[address] 12/11/22 23:37 Exam(s): CT CHEST Without Contrast EXAM: CT Chest Without Intravenous Contrast CLINICAL HISTORY: Reason for exam: falls. TECHNIQUE: Axial computed tomography images of the chest without intravenous contrast. Automated exposure control was utilized for the study. A dose lowering technique was utilized adhering to the principles of ALARA. COMPARISON: No relevant prior studies available. FINDINGS: Lungs: Unremarkable. No mass. No consolidation. Pleural space: Unremarkable. No pneumothorax. No significant effusion. Heart: Unremarkable. No cardiomegaly. No significant pericardial effusion. No significant coronary artery calcifications. Bones/joints: Degenerative changes of the spine. No acute fracture. No dislocation. Soft tissues: Mild bilateral gynecomastia. Vasculature: Atherosclerotic changes of the aorta. No thoracic aortic aneurysm. Lymph nodes: Unremarkable. No enlarged lymph nodes. IMPRESSION: No acute findings in the chest. Electronically signed by: Terry Wood MD 12/12/22 01:[address] 12/11/22 23:37 Exam(s): CT HEAD Without Contrast EXAM: CT Head Without Intravenous Contrast CLINICAL HISTORY: Reason for exam: falls. TECHNIQUE: Axial computed tomography images of the head/brain without intravenous contrast. Automated exposure control was utilized for the study. A dose lowering technique was utilized adhering to the principles of ALARA. COMPARISON: No relevant prior studies available. FINDINGS: No acute intracranial hemorrhage. No midline shift or mass effect. The [place]-white matter differentiation is maintained throughout. Age-related cerebral volume loss. Periventricular and subcortical white matter hypoattenuation, consistent with chronic microangiopathy. The visualized orbits appear grossly unremarkable. The calvarium is intact. The visualized paranasal sinuses and mastoid air cells are grossly clear. IMPRESSION: No acute intracranial hemorrhage, midline shift, or mass effect. Electronically signed by: Terry Wood MD 12/12/22 00:59 AM
--- NOTE | 2022-12-12 15:47 | Gastrointestinal Consultation ---
Date of Consultation December 12, 2022 Assessment & Plan (1) Decompensated hepatic cirrhosis: (2) Bacteremia: Plan acute bacteremia with ETOH cirrhosis and ascites; MELD-Na is 28. recs: --consider diagnostic paracentesis given his acute bacteremia --abx as per primary team --avoid NSAIDS, alcohol --may give tylenol up to 2 g daily. --Avoid benzodiazepines and opiate pain medications Thank you for allowing me to participate in the care of this patient History of Present Illness Attending Physician: Misha Melendez MD History of Present Illness 62 yo male with hx ETOH cirrhosis decompensated by ascites, ITZ, cocaine abuse with recent shingles here with falls and pain from shingles. Found to have bacteremia gram positive cocci. Currently denies any abdominal pains but he is tired and says he hasn't slept much. labs reviewed. Allergies Allergy/AdvReac Type Severity Reaction Status Date / Time No Known Allergies Allergy Verified 12/12/22 01:54 Home Medications Medication Instructions Recorded Confirmed Type furosemide 40 mg tablet 40 mg PO QAM 12/12/22 12/12/22 History hydrocodone 5 mg-acetaminophen 325 1 tab PO Q6H PRN Pain 12/12/22 12/12/22 History mg tablet spironolactone 100 mg tablet 100 mg PO QAM 12/12/22 12/12/22 History Patient History Medical History Decompensated hepatic cirrhosis Hx of fracture of patella Iron deficiency anemia Liver cirrhosis Right shoulder injury Surgical History Hx of appendectomy Social History Smoking Status: Former smoker Tobacco Type: Smokeless Tobacco (Dip or Chew) Do You Dip or Chew Tobacco: Yes; Tobacco Cessation Education Requested by Patient: No Hx Alcohol Use: No Hx Substance Use: No Preferred Language: Lao Communication Ability: Effective Energy Project Manager Required: No Beliefs That Will Affect Care: None Current Living Situation: Other Current Living Situation Comment: Lives with 11 year old son Feels Safe at Home: Yes Safety Concerns: Feels Safe At This Time Assistive Devices: Cane Assistive Devices Comment: reading glasses Review of Systems Constitutional: no fever, no chills and no weight loss Eyes: as per Subjective / HPI Ear, Nose, Mouth, Throat: as per Subjective / HPI Respiratory: no dyspnea and no dyspnea on exertion Cardiovascular: no chest pain and no palpitations Gastrointestinal: as per Subjective / HPI Musculoskeletal: no joint pain and no swelling Integumentary: no rash and no lesions Neurologic: no numbness and no paresthesia Psychiatric: no depression and no anxiety Endocrine: no fatigue Hematologic / Lymphatic: no easy bleeding and no easy bruising Physical Exam Constitutional: WD/WN, vitals as above Eyes: EOM intact bilaterally Neck: normal visual inspection Respiratory: normal respiratory effort, lungs clear to auscultation Cardiovascular: RRR, no murmur, no edema Gastrointestinal (Abdomen): Inspection/Auscultation: abdomen normal to inspection; abdomen not distended Percussion/Palpation: abdomen soft; abdomen nontender and no hepatosplenomegaly Musculoskeletal: Head/Neck/Chest: normocephalic and head atraumatic Extremities: no cyanosis Skin: no rashes, warm and dry Neurologic: moves all extremities Psychiatric: Orientation: alert and cooperative Affect: euthymic affect Results & Data Vital Signs (Past 12 Hours) Vital Signs Temp Pulse Pulse Resp BP BP Pulse Ox 12/12/22 14:51 12/12/22 14:47 36.9 C 87 18 130/69 97 12/12/22 13:15 82 18 98 12/12/22 12:05 82 18 116/71 93 12/12/22 10:00 90 17 97 12/12/22 10:00 115/65 12/12/22 09:00 93 H 16 96 12/12/22 09:00 110/58 L 12/12/22 08:43 91/50 L 12/12/22 08:43 94 H 18 96 12/12/22 08:00 93 H 19 96 12/12/22 08:00 91/57 L 12/12/22 07:16 101/57 L 12/12/22 07:16 94 H 22 96 12/12/22 08:03 12/12/22 08:03 36.6 C 96 H 22 101/57 L 96 12/12/22 07:00 94 H 17 97 12/12/22 06:00 97 H 20 96 12/12/22 05:00 93 H 18 97 12/12/22 04:30 110/67 12/12/22 04:30 93 H 18 99 12/12/22 04:00 99 12/12/22 04:00 121/68 12/12/22 04:30 94 H 17 110/67 98 12/12/22 04:30 12/12/22 04:00 92 H 17 121/68 99 Pulse Ox O2 Del Method O2 Del Method 12/12/22 14:51 Room Air 12/12/22 14:47 Room Air 12/12/22 13:15 Room Air 12/12/22 12:05 Room Air 12/12/22 10:00 12/12/22 10:00 12/12/22 09:00 12/12/22 09:00 12/12/22 08:43 12/12/22 08:43 12/12/22 08:00 12/12/22 08:00 12/12/22 07:16 12/12/22 07:16 12/12/22 08:03 Room Air 12/12/22 08:03 Room Air 12/12/22 07:00 12/12/22 06:00 12/12/22 05:00 12/12/22 04:30 12/12/22 04:30 12/12/22 04:00 12/12/22 04:00 12/12/22 04:30 Room Air 12/12/22 04:30 98 Room Air 12/12/22 04:00 Room Air PG Care Time/CCT Total # of Minutes Spent Total Time Spent with Patient: Total time spent is greater than 50% in coordination of care (as documented) at patient's floor/unit and/or counseling patient: Coding Level of Care Code 15823 IN/OBS CONSULT LVL 3,45M Diagnoses Decompensated hepatic cirrhosis K72.90; K74.60 Bacteremia R78.81
[2022-12-12 17:12] LABS: Appearance Urine Clear (Clear); Bacteria Urine Automated Negative (Negative); Bilirubin Urine Negative (Negative); Blood Urine 2+ (Negative); Color Urine Dark Yellow; Epithelial Cell Urine Auto >30 /lpf (0-5); Glucose Urine UA Negative (Negative); Ketones Urine Negative (Negative); Leukocyte Esterase Urine Negative (Negative); Nitrite Urine Negative (Negative); Protein Urine Negative (Negative); Urobilinogen Urine Negative (Negative)
[2022-12-12 17:30] LABS: Protein Creatinine Ratio Urine 0.2 (0-0.2); Sodium Random Urine < 10 mmol/L; Total Protein Urine Random 21.6 mg/dl (0-11.9)
[2022-12-12 18:44] LABS: BUN Creatinine Ratio 27.1 (10-20); Calcium 7.8 mg/dl (8.6-10.3); Creatinine Clr Calc Pharmacy 58.5 ml/min; Est GFR (Non-African American) 40.6 ml/min; Potassium 4.9 mmol/L (3.5-5.1)
[2022-12-12] MEDS ORDERED: Nursing to Pharmacy Communication SCH (23:15)
--- NOTE | 2022-12-12 23:18 | Electrocardiogram Report ---
Test Reason : Blood Pressure : / mmHG Vent. Rate : 077 BPM Atrial Rate : 077 BPM P-R Int : 160 ms QRS Dur : 102 ms QT Int : 440 ms P-R-T Axes : 044 016 043 degrees QTc Int : 497 ms Normal sinus rhythm Low voltage QRS Cannot rule out Anterior infarct , age undetermined Prolonged QT Abnormal ECG No previous ECGs available Confirmed by Chase Ortiz ([id number]) on 12/12/2022 11:18:48 PM Referred By: REFERRED SELF Confirmed By:Chase Ortiz
[2022-12-13] MEDS: PIPERACILLIN/TAZOBACTAM 4.5 GM in DEXTROSE 5% 100 ML IV SCH ×2 (00:12→08:13)
[2022-12-13] MEDS: oxyCODONE HCL IR 5 MG TAB (IMMEDIATE RELEASE) PO PRN ×2 (01:12→08:13)
[2022-12-13] MEDS: ALBUMIN 25% 25 GM/100 ML VIAL IV SCH ×4 (02:27→19:39)
[2022-12-13 06:13] LABS: Hematocrit (blood only) 21.6 % (42.0-52.0); Hemoglobin 7.1 g/dl (14.0-18.0); Mean Corpuscular Hemoglobin 29.8 pg (25.0-34.0); Mean Corpuscular Hgb Conc 32.9 g/dL (32.0-36.0); Mean Corpuscular Volume 90.8 fL (80.0-100.0); Mean Platelet Volume 11.1 fL (9.4-12.4); Nucleated RBC # (auto) 0.02 K/uL (0.00-0.12); Nucleated RBC % (auto) 0.1 %; Platelet Count 72 K/uL (130-400); RDW Coefficient of Variation 16.6 % (11.5-14.5); RDW Standard Deviation 55.5 fL (36.4-46.3); Red Blood Count 2.38 M/uL (4.70-6.10); White Blood Count 20.71 K/ul (4.8-10.8)
[2022-12-13 06:14] LABS: Albumin Level 2.5 gm/dl (3.4-5.0); BUN Creatinine Ratio 29.3 (10-20); Bilirubin,Total 2.3 mg/dl (0.2-1.0); Calcium 7.5 mg/dl (8.6-10.3); Creatinine Clr Calc Pharmacy 65.8 ml/min; Est GFR (African American) 54.3 ml/min; Est GFR (Non-African American) 46.9 ml/min; Globulin 2.4 gm/dl (2.5-4.0); Potassium 4.2 mmol/L (3.5-5.1); Total Protein 4.9 gm/dl (6.0-8.3)
[2022-12-13 06:40] LABS: Basophils # (auto) 0.04 K/uL (0.00-0.20); Basophils % (auto) 0.2 %; Dohle Bodies 1+; Echinocytes 1+; Eosinophils # (auto) 0.07 K/uL (0.00-0.50); Eosinophils % (auto) 0.3 %; Immature Granulocytes % (auto) 1.4 %; Lymphocytes # (auto) 1.03 K/uL (1.20-3.40); Monocytes # (auto) 2.49 K/uL (0.11-0.59); Neutrophils # (auto) 16.78 K/uL (1.40-6.50); Neutrophils % (auto) 81.1 %; Polychromasia 1+
[2022-12-13 06:53] LABS: INR 1.7 (0.9-1.1); Prothrombin Time 17.8 Seconds (9.0-12.0)
--- NOTE | 2022-12-13 10:29 | Gastroenterology Progress Note ---
Date of Service December 13, 2022 Assessment & Plan (1) Decompensated hepatic cirrhosis: (2) Bacteremia: Plan: Pt is a 62 yo male w hx of ETOH cirrhosis (current MELD 27), presented w symptoms of weakness, falls, found to have hyponatremia and bacteremia, GPC's gr owing in blood culture, also ascites in abdomen. Last ETOH intake >1yr ago. Admitted to using cocaine applied to L abd/flank shingles lesion. Chews tobacco. - Monitor blood ct and transfuse for goal Hgb >7 - Complete infectious workup. Antibx coverage and f/u on final blood cx result to isolate organism - Albumin IV support - US paracentesis w fluid analysis, cell ct, cx, to r/o SBP - Hold diuretics - 2g Na diet, 1.5L fluid restriction - Check PEth level, urine drugs screen - Consider Neuro consult if continues to have weakness once infection and hyponatremia treated - Will continue to follow Admission and Anticipated Discharge Date Admission Date: December 12, 2022 Supervising Physician Co-Signing Physician Notes I personally saw and evaluated the patient on 12/13/2022 with RONNIE Lindsay and agree with her findings and plan of care. 62 y/o M with history of decompensated alcohol cirrhosis c/b non-bleeding varices and ascites on diuretics who presented with hyponatremia and falls found to have bacteremia. He denies alcohol use for the past year but does use cocaine weekly. he states he recently had shingle over his L side and was treated for this but the pain was so bad he was rubbing cocaine onto the open wounds to "num b the pain." When he was recently seen in the office his MELD was only 14 and he was overall well compensated with last paracentesis being in September. he states that he continued to eat and drink well at home but he felt so weak that his body would just give out and he fell a total of 7 times. Denies hitting his head, syncope, or LOC. On admission found to have OMAIRA with Cr of 1.5, hyponatremia with Na of 125. MELD-Na score is 27 drive mainly by OMAIRA and hyponatremia. On exam he is AAOx3 without asterixis, large ascites but non- tender to exam, large scabs over L side of abdomen and flank from recent shingles, no LE edema. Mild scleral icterus. Appears chronically ill. Recommend a diagnostic and therapeutic paracentesis to assess for SBP. Send for cell count and diff, culture, total protein, and albumin. Complete infectious work up. I did explain to him given he had open wounds over abdomen and he rubbed cocaine over them this is a potential source of bacterial entry. Continue IV zosyn for now. Hold diuretics given hyponatremia. IV albumin daily given OMAIRA and bacteremia. His hyponatremia should improve with IV albumin. He denies any poor PO intake prior to coming in but his mouth does appear very dry on exam. He has no LE edema and while he does have large ascites I suspect he is intravascularly actually dry. Daily MELD labs. Check PETH test. He denies alcohol use and only admits to cocaine at this time. Mallory Katz, DO Gastroenterology and Hepatology Subjective Pt reports feeling weak, denies any fevers, chills overnight headaches, dizziness, chest pain, shortness of breath, abdominal pain, nausea or vomiting. Review of Systems Review of Systems: All systems reviewed & are unremarkable except as noted in HPI & below Physical Exam Constitutional: WD/WN, vitals as above well groomed, cooperative and comfortable Eyes: PERRL, conjunctivae normal, anicteric sclerae ENMT: external ear and nose normal, oropharynx normal Respiratory: normal respiratory effort, lungs clear to auscultation Cardiovascular: RRR, no murmur, no edema Gastrointestinal (Abdomen): Mildly distended abdomen with fluid wave present, nontender to palpation, bowel sounds hypoactive Skin: no rashes, warm and dry no jaundice Ulcer on L toe, LUQ to L flank shingle rashes Neurologic: Motor/Sensory: no asterixis Psychiatric: A+Ox3, euthymic affect Lymphatic: no lymphedema Results & Data Vital Signs (Past 12 Hours) Vital Signs Temp Pulse Pulse Resp BP Pulse Ox O2 Del Method 12/13/22 09:55 Room Air 12/13/22 07:17 36.8 C 80 19 125/65 96 Room Air 12/13/22 07:03 81 12/13/22 04:05 36.9 C 79 16 118/66 94 Room Air 12/12/22 23:00 80 12/13/22 00:28 36.9 C 90 20 129/67 96 Room Air
--- NOTE | 2022-12-13 11:30 | Nephrology Progress Note ---
Date of Service December 13, 2022 Assessment & Plan (1) Hyponatremia: Plan: new onset moderate to severe hypervolemic hyponatremia >> not likely to make much headway on this while we are holding diuretics acute kidney injury takes priority over sodium currently. Satisfactory provided sodium is not worsening -continue FR 2L and low sodium diet -encourage protein intake > protein shakes do not count toward this -continue albumin -control shingles pain -Daily basic metabolic panel (2) OMAIRA (acute kidney injury): Plan: Slowly improving stage 1 nonoliguric OMAIRA versus CKD emerging in setting of o bligate diuretics and w/ microhematuria, active shingles, bacteremia. Baseline creatinine 1.September. No proteinuria; random urine sodium less than 10; concentrated dark yellow urine with 2+ blood -too early to call this HRS and honestly unlikely HRS in setting of bacteremia, recent obligate diuretics; needs 48 hrs of albumin to start and on last day of this -Continue albumin Admission and Anticipated Discharge Date Admission Date: December 12, 2022 Subjective 4/4 group B beta strep / S aglactiae bacteremia. from shingles wounds. Apart from pain on left flank, denies other musculoskeletal or abdominal pain. No nausea vomiting, no shortness of breath, does not notice edema actually thinks it is doing quite well. Review of Systems Review of Systems: All systems reviewed & are unremarkable except as noted in Subjective Physical Exam 2 Constitutional: well developed, well nourished and + frail appearing; no acute distress Eyes: EOM intact bilaterally ENMT: Ears: no external ear abnormality Nose: no external nose abnormality Mouth: + dry oral mucous membranes Neck: no nuchal rigidity Respiratory: normal respiratory effort Auscultation: + diminished lung sounds Cardiovascular: Rate/Rhythm: regular rate and regular rhythm Extremities: + edema (1+) Gastrointestinal (Abdomen): Inspection/Auscultation: + abdomen distended and normal bowel sounds Percussion/Palpation: abdomen soft and + ascites; abdomen nontender Musculoskeletal: Extremities: strength 5/5 throughout Skin: No vesicles but dermatomal rash more prominent on abdomen than flank Neurologic: Moves all extremities, fluent speech, no tremor Results & Data Vital Signs (Past 12 Hours) Vital Signs Temp Pulse Pulse Resp BP Pulse Ox O2 Del Method 12/13/22 09:55 Room Air 12/13/22 07:17 36.8 C 80 19 125/65 96 Room Air 12/13/22 07:03 81 12/13/22 04:05 36.9 C 79 16 118/66 94 Room Air 12/13/22 00:28 36.9 C 90 20 129/67 96 Room Air Laboratory Results 12/13/22 05:26 12/13/22 05:26
--- NOTE | 2022-12-13 11:49 | Hospitalist Progress Note ---
Date of Service December 13, 2022 Assessment & Plan (1) Acute hyponatremia: (2) OMAIRA (acute kidney injury): (3) Bacteremia: Plan: 62-year-old male past med significant for portal hypertension, alcoholic cirrhosis of liver with ascites, iron deficiency anemia, history of cocaine abuse, states he did drink alcohol last 1 year, having shingles in left lower rib cage extending to the back since last 1 month comes because of frequent falls, pain from his shingles and abdominal discomfort and found to have hyponatremia and leukocytosis. Gram-positive bacteremia 62-year-old male with history of decompensated liver cirrhosis presents with fall and abdominal discomfort History of singles since last 1 month. Reports history of rubbing cocaine on the wound. Hypotensive on arrival; other vital stable. 4 out of 4 blood culture positive for gram-positive cocci in chains; blood culture positive for Streptococcus agalactiae Leukocytosis present; WBC count of 20,000 with The likely source of his bacteremia is wound on his left flank. he is currently on ceftriaxone and Flagyl. Echocardiogram done; awaiting results. Repeat blood cultures tomorrow a.m. Patient to undergo diagnostic paracentesis today to rule out SBP. Infectious disease also consulted. Acute kidney injury Hyponatremia Creatinine elevated to 1.8; baseline around 1. Likely in setting of sepsis/diuretics Sodium 127; improved. Urine output assuring. Nephrology on board; on albumin. Recommended to start albumin. Obtain daily BMP Avoid nephrotoxic agent Shingles Pain control. Alcoholic liver cirrhosis, decompensated Hold diuretics given OMAIRA, sepsis Elevated LFTs present History of iron deficiency anemia Anemia of chronic disease Hemoglobin slightly down trended to 7.1 We will follow the labs. Transfuse blood if hemoglobin is less than 7. Thrombocytopenia Secondary to decompensated liver cirrhosis. Monitor for now. DVT prophylaxis SCDs for now Disposition telemetry floor Full code Time spent evaluating patient, direct bedside care, chart review, placing orders, interpretation of diagnostic studies, discussion with consultants, patient, and family members, as well as other required patient management activities is 60 minutes. Please note the above document was generated using voice recognition software. It may contain grammatical, syntax or spelling errors. Any formal questions or concerns about the content, text or information contained within the body of this dictation should be directly addressed to the provider for clarification Admission and Anticipated Discharge Date Admission Date: December 12, 2022 Subjective Patient lying in the bed comfortably. Woken up by verbal stimuli. He reports lower back pain. Hemodynamically stable. Blood pressure within normal limits and saturating well on room air. Review of Systems Review of Systems: All systems reviewed & are unremarkable except as noted in Subjective Physical Exam Physical Exam: Constitutional: WD/WN, vitals as above, NAD, sitting up in bed, pleasant, conversing easily Respiratory: Bilateral vesicular breath sound. Cardiovascular: RRR, no murmur, no edema Vessels: no JVD or carotid bruit Chest: normal inspection of chest Abdomen: Abdomen slightly distended. Nontender. Musculoskeletal: no cyanosis or clubbing, extremities motor strength 5/5 Skin: healed wound on the flank. Neurologic: PERRL, EOMI, accommodation nl, no face palsy, no dysarthria CN's II- XI intact bilaterally and moves all extremities Psychiatric: A+Ox3, euthymic affect Results & Data Results & Data Vital Signs (Past 12 Hours) Vital Signs Temp Pulse Pulse Resp BP Pulse Ox O2 Del Method 12/13/22 09:55 Room Air 12/13/22 07:17 36.8 C 80 19 125/65 96 Room Air 12/13/22 07:03 81 12/13/22 04:05 36.9 C 79 16 118/66 94 Room Air 12/13/22 00:28 36.9 C 90 20 129/67 96 Room Air Laboratory Results Laboratory Results WBC 20.71 K/ul (4.8-10.8) H 12/13/22 05:26 RBC 2.38 M/uL (4.70-6.10) L 12/13/22 05:26 Hgb 7.1 g/dl (14.0-18.0) L 12/13/22 05:26 Hct 21.6 % (42.0-52.0) L 12/13/22 05:26 MCV 90.8 fL (80.0-100.0) 12/13/22 05:26 MCH 29.8 pg (25.0-34.0) 12/13/22 05:26 MCHC 32.9 g/dL (32.0-36.0) 12/13/22 05:26 RDW Std Deviation 55.5 fL (36.4-46.3) H 12/13/22 05:26 RDW Coeff of Dean 16.6 % (11.5-14.5) H 12/13/22 05:26 Plt Count 72 K/uL (130-400) L 12/13/22 05:26 MPV 11.1 fL (9.4-12.4) 12/13/22 05:26 Immature Gran % (Auto) 1.4 % 12/13/22 05:26 Neut % (Auto) 81.1 % 12/13/22 05:26 Lymph % (Auto) 5.0 % 12/13/22 05:26 Vernon % (Auto) 12.0 % 12/13/22 05:26 Eos % (Auto) 0.3 % 12/13/22 05:26 Baso % (Auto) 0.2 % 12/13/22 05:26 Neut # (Auto) 16.78 K/uL (1.40-6.50) H 12/13/22 05:26 Lymph # (Auto) 1.03 K/uL (1.20-3.40) L 12/13/22 05:26 Vernon # (Auto) 2.49 K/uL (0.11-0.59) H 12/13/22 05:26 Eos # (Auto) 0.07 K/uL (0.00-0.50) 12/13/22 05:26 Baso # (Auto) 0.04 K/uL (0.00-0.20) 12/13/22 05:26 Immature Gran # (Auto) 0.30 K/uL (0.01-0.20) H 12/13/22 05:26 Absolute Nucleated RBC 0.02 K/uL (0.00-0.12) 12/13/22 05:26 Nucleated RBC % (auto) 0.1 % 12/13/22 05:26 Dohle Bodies 1+ 12/13/22 05:26 Polychromasia 1+ 12/13/22 05:26 Echinocytes 1+ 12/13/22 05:26 Acanthocytes (Spur) 2+ 12/12/22 05:06 PT 17.8 Seconds (9.0-12.0) H 12/13/22 05:26 INR 1.7 (0.9-1.1) H 12/13/22 05:26 APTT 36.5 Seconds (21.0-31.0) H 12/11/22 22:08 PTT Ratio 1.3 12/11/22 22:08 Sodium 127 mmol/L (136-145) L 12/13/22 05:26 Potassium 4.2 mmol/L (3.5-5.1) 12/13/22 05:26 Chloride 100 mmol/L (98-107) 12/13/22 05:26 Carbon Dioxide 23 mmol/L (21-32) 12/13/22 05:26 Anion Gap 4 (3-11) 12/13/22 05:26 BUN 46 mg/dl (6-23) H 12/13/22 05:26 Creatinine 1.57 mg/dl (0.6-1.4) H 12/13/22 05:26 Est Cr Clr Drug Dosing 65.8 ml/min 12/13/22 05:26 Est GFR ( Amer) 54.3 ml/min 12/13/22 05:26 Est GFR (Non-Af Amer) 46.9 ml/min 12/13/22 05:26 BUN/Creatinine Ratio 29.3 (10-20) H 12/13/22 05:26 Glucose 153 mg/dl (70-99(Fasting)) H 12/13/22 05:26 Osmolality 279 mOsm/kg (280-300) L 12/11/22 22:08 Lactate 2.0 mmol/L (0.4-2.0) 12/11/22 23:55 Calcium 7.5 mg/dl (8.6-10.3) L 12/13/22 05:26 Total Bilirubin 2.3 mg/dl (0.2-1.0) H 12/13/22 05:26 Direct Bilirubin 1.0 mg/dl (0-0.2) H 12/12/22 05:06 AST 144 U/L (13-39) H 12/13/22 05:26 ALT 39 U/L (7-52) 12/13/22 05:26 Alkaline Phosphatase 118 U/L (34-104) H 12/13/22 05:26 Ammonia 30.0 umol/L (18-72) 12/11/22 23:55 Total Protein 4.9 gm/dl (6.0-8.3) L 12/13/22 05:26 Albumin 2.5 gm/dl (3.4-5.0) L 12/13/22 05:26 Globulin 2.4 gm/dl (2.5-4.0) L 12/13/22 05:26 Albumin/Globulin Ratio 1.0 (0.9-2) 12/13/22 05:26 Procalcitonin 12.54 ng/ml (0-0.5) H 12/11/22 22:08 Urine Color Dark Yellow 12/12/22 15:25 Urine Appearance Clear (Clear) 12/12/22 15:25 Urine pH 5.0 (4.5-7.5) 12/12/22 15:25 Ur Specific [place] 1.020 (1.000-1.030) 12/12/22 15:25 Urine Protein Negative (Negative) 12/12/22 15:25 Urine Glucose (UA) Negative (Negative) 12/12/22 15:25 Urine Ketones Negative (Negative) 12/12/22 15:25 Urine Blood 2+ (Negative) H 12/12/22 15:25 Urine Nitrite Negative (Negative) 12/12/22 15:25 Urine Bilirubin Negative (Negative) 12/12/22 15:25 Urine Urobilinogen Negative (Negative) 12/12/22 15:25 Ur Leukocyte Esterase Negative (Negative) 12/12/22 15:25 Urine WBC (Auto) 1-5 /hpf (0-5) 12/12/22 15:25 Urine RBC (Auto) 5-10 /hpf (0-4) H 12/12/22 15:25 U Hyaline Cast (Auto) 1-5 /lpf (0-5) 12/12/22 15:25 U Epithel Cells (Auto) >30 /lpf (0-5) H 12/12/22 15:25 Urine Bacteria (Auto) Negative (Negative) 12/12/22 15:25 Urine Osmolality 437 mOsm/kg (500-800) L 12/12/22 00:34 Ur Random Creatinine 130.0 mg/dl 12/12/22 12:40 U Random Total Protein 21.6 mg/dl (0-11.9) H 12/12/22 12:40 Ur Random Sodium < 10 mmol/L 12/12/22 12:40 Protein/Creatinin Ratio 0.2 (0-0.2) 12/12/22 12:40 Streptococcus sp PCR DETECTED (NotDetected) A 12/11/22 23:55 Strep agalactiae (PCR) DETECTED (NotDetected) A 12/11/22 23:55 Bld Cult ID Panel PCR See PCR Comment (NotDetected) 12/11/22 23:55 Impressions Abdomen/Pelvis CT 12/11/22 23:37 Exam(s): CT ABDOMEN + PELVIS Without Contrast EXAM: CT Abdomen and Pelvis Without Intravenous Contrast CLINICAL HISTORY: Reason for exam: fall, distended, cirrhosis, OMAIRA. TECHNIQUE: Axial computed tomography images of the abdomen and pelvis without intravenous contrast. Automated exposure control was utilized for the study. A dose lowering technique was utilized adhering to the principles of ALARA. COMPARISON: No relevant prior studies available. FINDINGS: Lung bases: Unremarkable. No mass. No consolidation. ABDOMEN: Liver: Cirrhosis. Abdominal and pelvic ascites. Gallbladder and bile ducts: Unremarkable. No calcified stones. No ductal dilation. Pancreas: Unremarkable. No ductal dilation. Spleen: Unremarkable. No splenomegaly. Adrenals: Unremarkable. No mass. Kidneys and ureters: Unremarkable. No obstructing stones. No hydronephrosis. Stomach and bowel: Diverticulosis. No obstruction. No mucosal thickening. PELVIS: Appendix: No findings to suggest acute appendicitis. Bladder: Unremarkable. No stones. Reproductive: Unremarkable as visualized. ABDOMEN and PELVIS: Intraperitoneal space: See above. Bones/joints: Degenerative changes of the spine. No acute fracture. No dislocation. Soft tissues: Anasarca. Vasculature: Atherosclerotic changes of the aorta. No abdominal aortic aneurysm. Lymph nodes: Unremarkable. No enlarged lymph nodes. IMPRESSION: No acute findings in the abdomen or pelvis. Electronically signed by: Terry Wood MD 12/12/22 01:[address] 12/11/22 23:37 Exam(s): CT C SPINE EXAM: CT Cervical Spine Without Intravenous Contrast CLINICAL HISTORY: Reason for exam: falls. TECHNIQUE: Axial computed tomography images of the cervical spine without intravenous contrast. Automated exposure control was utilized for the study. A dose lowering technique was utilized adhering to the principles of ALARA. COMPARISON: No relevant prior studies available. FINDINGS: The vertebral body heights are maintained. The craniocervical junction is intact. The atlanto-dens interval is maintained. The dens is intact. There is no spondylolisthesis. Multilevel cervical spondylosis and degenerative disc disease. Straightening of the cervical lordosis. The unenhanced neck soft tissues are grossly unremarkable. The visualized lung apices are grossly clear. IMPRESSION: No acute fracture or subluxation of the cervical spine. Electronically signed by: Terry Wood MD 12/12/22 01:[address] 12/11/22 23:37 Exam(s): CT CHEST Without Contrast EXAM: CT Chest Without Intravenous Contrast CLINICAL HISTORY: Reason for exam: falls. TECHNIQUE: Axial computed tomography images of the chest without intravenous contrast. Automated exposure control was utilized for the study. A dose lowering technique was utilized adhering to the principles of ALARA. COMPARISON: No relevant prior studies available. FINDINGS: Lungs: Unremarkable. No mass. No consolidation. Pleural space: Unremarkable. No pneumothorax. No significant effusion. Heart: Unremarkable. No cardiomegaly. No significant pericardial effusion. No significant coronary artery calcifications. Bones/joints: Degenerative changes of the spine. No acute fracture. No dislocation. Soft tissues: Mild bilateral gynecomastia. Vasculature: Atherosclerotic changes of the aorta. No thoracic aortic aneurysm. Lymph nodes: Unremarkable. No enlarged lymph nodes. IMPRESSION: No acute findings in the chest. Electronically signed by: Terry Wood MD 12/12/22 01:[address] 12/11/22 23:37 Exam(s): CT HEAD Without Contrast EXAM: CT Head Without Intravenous Contrast CLINICAL HISTORY: Reason for exam: falls. TECHNIQUE: Axial computed tomography images of the head/brain without intravenous contrast. Automated exposure control was utilized for the study. A dose lowering technique was utilized adhering to the principles of ALARA. COMPARISON: No relevant prior studies available. FINDINGS: No acute intracranial hemorrhage. No midline shift or mass effect. The [place]-white matter differentiation is maintained throughout. Age-related cerebral volume loss. Periventricular and subcortical white matter hypoattenuation, consistent with chronic microangiopathy. The visualized orbits appear grossly unremarkable. The calvarium is intact. The visualized paranasal sinuses and mastoid air cells are grossly clear. IMPRESSION: No acute intracranial hemorrhage, midline shift, or mass effect. Electronically signed by: Terry Wood MD 12/12/22 00:59 AM
[2022-12-13 12:39] LABS: Albumin Peritoneal Fluid < 1.5 gm/dl
[2022-12-13 12:45] LABS: Glucose Peritoneal Fluid 181 mg/dl; Total Protein Peritoneal Fluid < 3.0 gm/dl
[2022-12-13 12:57] LABS: Appearance Peritoneal Fluid Hazy; Color Peritoneal Fluid Pale Yellow; Lymphocytes, Fluid 21 %; Mono,Macrophage,Mesothelial 18 %; Neutrophils, Fluid 61 %; RBC Peritoneal Fluid Auto < 2000 /uL; WBC Peritoneal Fluid Auto 237 /ul (0-300)
--- NOTE | 2022-12-13 14:06 | Ultrasound Report ---
ULTRASOUND-GUIDED PARACENTESIS CLINICAL HISTORY: Ascites PROCEDURE: Procedure and risks were explained. Informed consent was obtained. A final timeout was com pleted. The left lower quadrant was prepped and draped in sterile fashion. 1% buffered lidocaine was utilized for skin anesthesia. Utilizing ultrasound guidance, a 5 [place] safety centesis catheter was advanced into the left lower q uadrant pocket of ascites. Ultrasound images were obtained. A total of 50 mL of yellow ascites fluid was removed and sent to the lab for analysis. The catheter was removed and Band-Aid applied. The rula ent tolerated the procedure well. Vital signs will be monitored postprocedure. IMPRESSION: Ultrasound-guided paracentesis as above. Performed, dictated, and signed by Chago Talbert PA-C; to be co-signed by Dr. Davion Whitehead. Electronically signed by: Davion Whitehead M.D. 12/13/2022 2:20 PM
[2022-12-13] MEDS: metroNIDAZOLE 500 MG/100 ML BAG IV SCH ×2 (15:39→22:55)
[2022-12-13] MEDS: cefTRIAXone SODIUM 2,000 MG in DEXTROSE 5% 50 ML IV SCH (15:41)
[2022-12-13 16:26] LABS: Amphetamines+Metham, Urine Neg (Neg); Barbiturates, Urine Neg (Neg); Benzodiazepine, Urine Neg (Neg); Cocaine, Urine Pos (Neg); MDMA (Ecstacy), Urine Neg (Neg); Methadone, Urine Neg (Neg); Opiate, Urine Pos (Neg); Phencyclidine, Urine Neg (Neg)
[2022-12-13] MEDS ORDERED: SODIUM CHLORIDE 0.65% NA SOLN 45 ML (OCEAN) ONE (22:52)
[2022-12-13] MEDS ORDERED: SODIUM CHLORIDE 0.65% NA SOLN 45 ML (OCEAN) PRN (22:58)
[2022-12-14] MEDS: ALBUMIN 25% 25 GM/100 ML VIAL IV SCH ×4 (00:04→19:50)
[2022-12-14 06:45] LABS: Hematocrit (blood only) 21.4 % (42.0-52.0); Hemoglobin 7.2 g/dl (14.0-18.0); Mean Corpuscular Hemoglobin 29.8 pg (25.0-34.0); Mean Corpuscular Hgb Conc 33.6 g/dL (32.0-36.0); Mean Corpuscular Volume 88.4 fL (80.0-100.0); Platelet Count 71 K/uL (130-400); RDW Coefficient of Variation 16.2 % (11.5-14.5); RDW Standard Deviation 52.8 fL (36.4-46.3); Red Blood Count 2.42 M/uL (4.70-6.10); White Blood Count 17.15 K/ul (4.8-10.8)
[2022-12-14 07:07] LABS: Basophils # (auto) 0.03 K/uL (0.00-0.20); Basophils % (auto) 0.2 %; Echinocytes 1+; Eosinophils # (auto) 0.14 K/uL (0.00-0.50); Eosinophils % (auto) 0.8 %; Immature Granulocytes # (auto) 0.38 K/uL (0.01-0.20); Immature Granulocytes % (auto) 2.2 %; Lymphocytes # (auto) 0.86 K/uL (1.20-3.40); Monocytes % (auto) 11.7 %; Neutrophils # (auto) 13.74 K/uL (1.40-6.50); Neutrophils % (auto) 80.1 %; Polychromasia 1+
[2022-12-14 07:13] LABS: Albumin Globulin Ratio 1.2 (0.9-2); Albumin Level 2.8 gm/dl (3.4-5.0); BUN Creatinine Ratio 33.1 (10-20); Bilirubin,Total 2.7 mg/dl (0.2-1.0); Calcium 7.9 mg/dl (8.6-10.3); Creatinine Clr Calc Pharmacy 87.4 ml/min; Est GFR (African American) 76.7 ml/min; Est GFR (Non-African American) 66.2 ml/min; Globulin 2.3 gm/dl (2.5-4.0); Potassium 4.5 mmol/L (3.5-5.1); Total Protein 5.1 gm/dl (6.0-8.3)
[2022-12-14] MEDS: oxyCODONE HCL IR 5 MG TAB (IMMEDIATE RELEASE) PO PRN ×2 (07:58→19:55)
--- NOTE | 2022-12-14 09:52 | Nephrology Progress Note ---
Date of Service December 14, 2022 Assessment & Plan (1) Hyponatremia: Plan: new onset moderate to severe hypervolemic hyponatremia (125 on 12/11 presentation)>> not likely to make much headway on this while we are holding diuretics and giving IV abtx >> treating bacteremia and acute kidney injury takes clinical priority over sodium currently. Satisfactory provided sodium is not worsening -continue FR 2L and low sodium diet -encourage protein intake > protein shakes do not count toward FR -control shingles pain -Daily basic metabolic panel >>did d/w pharmacy and will if possible change flagyl to po; only 70 mL daily w/ ceftiraxone IV (2) OMAIRA (acute kidney injury): Plan: Slowly improving stage 1 nonoliguric OMAIRA versus CKD emerging in setting of obligate diuretics and w/ microhematuria, active shingles, bacteremia. Baseline creatinine 1.September. No proteinuria; random urine sodium less than 10; concentrated dark yellow urine with 2+ blood -trending toward baseline; not quite there yet; not HRI -Continue albumin through 0700 tomorrow; look to pause albumin then resume diuretics next 24-36 hrs depending on clinical status >f/u repeat blood cxs; NGTD Admission and Anticipated Discharge Date Admission Date: December 12, 2022 Subjective Denies shortness of breath, nausea vomiting. Complains of right-sided pain flank/abdomen area. No further concerns about shingles pain. RN reports patient locked himself in the bathroom and refused entry briefly Review of Systems Review of Systems: All systems reviewed & are unremarkable except as noted in Subjective Physical Exam Constitutional: well developed, well nourished, + frail appearing and + lethargic; no acute distress Eyes: EOM intact bilaterally ENMT: Ears: no external ear abnormality Nose: no external nose abnormality Mouth: + dry oral mucous membranes Neck: no nuchal rigidity Respiratory: normal respiratory effort Auscultation: + diminished lung sounds Cardiovascular: Rate/Rhythm: regular rate and regular rhythm Extremities: + edema (1+) Gastrointestinal (Abdomen): Inspection/Auscultation: + abdomen distended and normal bowel sounds Percussion/Palpation: abdomen soft and + ascites; abdomen nontender Musculoskeletal: Extremities: strength 5/5 throughout Results & Data Vital Signs (Past 12 Hours) Vital Signs Temp Pulse Pulse Resp BP Pulse Ox O2 Del Method 12/14/22 07:30 36.3 C L 75 18 147/68 H 99 Room Air 12/14/22 03:25 37.1 C 77 18 131/51 L 96 Room Air 12/13/22 23:38 85 12/13/22 23:22 36.6 C 80 18 132/66 96 Room Air Laboratory Results 12/14/22 05:38 12/14/22 05:38
[2022-12-14] MEDS: metroNIDAZOLE 500 MG/100 ML BAG IV SCH (10:00)
--- NOTE | 2022-12-14 11:11 | XRay Report ---
XR hip RT 2V w pelvis HISTORY: 62 years-old Male Right hip pain acute right hip pain COMPARISON: 12/12/2022 TECHNIQUE: AP view of the pelvis with 2 views of the right hip FINDINGS: Mild osteoarthritis of the hips. No acute fracture, dislocation or avascular necrosis. Left pelvic ba sin phlebolith. IMPRESSION: No acute fracture or dislocation. ACT 112: Negative or not required by law. The above report was generated using voice recognition software. It may contain grammatical, syntax o r spelling errors. Electronically signed by: Daryl Miranda M.D. 12/14/2022 11:10 AM
--- NOTE | 2022-12-14 11:53 | Gastroenterology Progress Note ---
Date of Service December 14, 2022 Assessment & Plan (1) Decompensated hepatic cirrhosis: (2) Bacteremia: Plan: Pt is a 62 yo male w hx of ETOH cirrhosis (current MELD 27), presented w symptoms of weakness, falls, found to have hyponatremia and bacteremia, Group B strep growing in blood culture (? infection source related to him applying cocaine on shingles wound). He also has ascites, US diagnostic paracentesis showed no SBP. Last ETOH intake >1yr ago. Chews tobacco, intermittent cocaine use. - Monitor blood ct and transfuse for goal Hgb >7 - IV antibx for bacteremia - Albumin IV support - Hold diuretics - 2g Na diet, 1.5L fluid restriction - F/U PEth level, urine drugs screen - Consider Neuro consult if continues to have weakness once infection and hyponatremia treated - Will continue to follow Admission and Anticipated Discharge Date Admission Date: December 12, 2022 Supervising Physician Co-Signing Physician Notes I personally saw and evaluated the patient on 12/14/2022 with RONNIE Lindsay and agree with her findings and plan of care. 62 y/o M with history of decompensated alcohol cirrhosis c/b non-bleeding varices and ascites on diuretics who presented with hyponatremia and falls found to have gram + bacteremia. He denies alcohol use for the past year but does use cocaine weekly. He states he recently had shingles over his L side and was treated for this but the pain was so bad he was rubbing cocaine onto the open wounds to "numb the pain." When he was recently seen in the office his MELD was only 14 and he was overall well compensated with last paracentesis being in September. he states that he continued to eat and drink well at home but he felt so weak that his body would just give out and he fell a total of 7 times. Denies hitting his head, syncope, or LOC. On admission found to have OMAIRA with Cr of 1.5, hyponatremia with Na of 125. MELD-Na score [address] by OMAIRA and hyponatremia. On exam he is AAOx3 without asterixis, small ascites but non- tender to exam, large scabs over L side of abdomen and flank from recent shingles, no LE edema. Mild scleral icterus. Appears chronically ill. Paracentesis studies yesterday reviewed and NO evidence of SBP. Echo with any evidence of endocarditis. Cr down to 1.1 after IV albumin yesterday. Na up to 130 today. No evidence of SBP to explain his bacteremia. I did explain to him given he had open wounds over abdomen and he rubbed cocaine over them this is a potential source of bacterial entry. Continue IV antibiotics for now. Hold diuretics given hyponatremia. If sodium remains stable and kidney function remains normal would resume diuretics in the next 24 hours. 2 gram sodium restricted diet and 2L fluid restriction. Daily MELD labs. Check PETH test. He denies alcohol use and only admits to cocaine at this time. Mallory Katz, DO Gastroenterology and Hepatology Subjective Pt c/o R hip pain, hx of falls. Hip/pelvis xray w mild OA on hip but no fractures. Denies fever, chills, CP, SOB, abd pain, n/v Review of Systems Review of Systems: All systems reviewed & are unremarkable except as noted in HPI & below Physical Exam Constitutional: WD/WN, vitals as above well groomed, cooperative and comfortable Eyes: PERRL, conjunctivae normal, anicteric sclerae ENMT: external ear and nose normal, oropharynx normal Respiratory: normal respiratory effort, lungs clear to auscultation Cardiovascular: RRR, no murmur, no edema Gastrointestinal (Abdomen): normal bowel sounds, soft, nontender, no hepatosplenomegaly Skin: no rashes, warm and dry no jaundice Neurologic: Motor/Sensory: no asterixis Psychiatric: A+Ox3, euthymic affect Lymphatic: no lymphedema Results & Data Vital Signs (Past 12 Hours) Vital Signs Temp Pulse Resp BP Pulse Ox O2 Del Method 12/14/22 11:20 36.4 C L 80 18 130/71 98 Room Air 12/14/22 07:30 36.3 C L 75 18 147/68 H 99 Room Air 12/14/22 03:25 37.1 C 77 18 131/51 L 96 Room Air
--- NOTE | 2022-12-14 12:28 | Hospitalist Progress Note ---
Date of Service December 14, 2022 Assessment & Plan (1) Acute hyponatremia: (2) OMAIRA (acute kidney injury): (3) Bacteremia: Plan: 62-year-old male past med significant for portal hypertension, alcoholic cirrhosis of liver with ascites, iron deficiency anemia, history of cocaine abuse, states he did drink alcohol last 1 year, having shingles in left lower rib cage extending to the back since last 1 month comes because of frequent falls, pain from his shingles and abdominal discomfort and found to have hyponatremia and leukocytosis. Gram-positive bacteremia 62-year-old male with history of decompensated liver cirrhosis presents with fall and abdominal discomfort History of singles since last 1 month. Reports history of rubbing cocaine on the wound. Hypotensive on arrival; other vital stable. 4 out of 4 blood culture positive for gram-positive cocci in chains; blood culture positive for Streptococcus agalactiae Leukocytosis present; Underwent diagnostic paracentesis in a 12/13/2022; Labs reviewed Total WBC count up 237 with 61% neutrophils. Not suggestive of SBP. The likely source of his bacteremia is wound on his left flank. he is currently on ceftriaxone. Repeat blood cultures are negative so far. Transthoracic echocardiogram done; no findings suggestive of vegetation. Infectious disease consulted; awaiting recommendation Acute kidney injury Hyponatremia Creatinine elevated to 1.8; baseline around 1. Likely in setting of sepsis/diuretics Sodium 130 Urine output assuring. Hold diuretics. Continue on albumin as per recommendation by nephrology. Strict input and output. Shingles Pain control. Alcoholic liver cirrhosis, decompensated Hold diuretics given OMAIRA, sepsis Elevated LFTs present History of iron deficiency anemia Anemia of chronic disease Hemoglobin slightly down trended to 7.1 We will follow the labs. Transfuse blood if hemoglobin is less than 7. Thrombocytopenia Secondary to decompensated liver cirrhosis. Monitor for now. DVT prophylaxis SCDs for now Disposition telemetry floor. He continues to be hospitalized for sepsis requiring IV antibiotics. Full code Time spent evaluating patient, direct bedside care, chart review, placing orders, interpretation of diagnostic studies, discussion with consultants, patient, and family members, as well as other required patient management activities is 60 minutes. Please note the above document was generated using voice recognition software. It may contain grammatical, syntax or spelling errors. Any formal questions or concerns about the content, text or information contained within the body of this dictation should be directly addressed to the provider for clarification Admission and Anticipated Discharge Date Admission Date: December 12, 2022 Subjective Patient seen and examined at bedside. He is lying on the bed comfortably. He reports pain on his left thigh. Review of Systems Review of Systems: All systems reviewed & are unremarkable except as noted in Subjective Physical Exam Physical Exam: Constitutional: WD/WN, vitals as above, NAD, sitting up in bed, pleasant, conversing easily Respiratory: Bilateral vesicular breath sound. Cardiovascular: RRR, no murmur, no edema Vessels: no JVD or carotid bruit Chest: normal inspection of chest Abdomen: Abdomen slightly distended. Nontender. Musculoskeletal: no cyanosis or clubbing, extremities motor strength 5/5. Bruises present in bilateral knees. Skin: healed wound on the flank. Neurologic: PERRL, EOMI, accommodation nl, no face palsy, no dysarthria CN's II- XI intact bilaterally and moves all extremities Psychiatric: A+Ox3, euthymic affect Results & Data Results & Data Vital Signs (Past 12 Hours) Vital Signs Temp Pulse Resp BP Pulse Ox O2 Del Method 12/14/22 11:20 36.4 C L 80 18 130/71 98 Room Air 12/14/22 07:30 36.3 C L 75 18 147/68 H 99 Room Air 12/14/22 03:25 37.1 C 77 18 131/51 L 96 Room Air Laboratory Results Laboratory Results WBC 17.15 K/ul (4.8-10.8) H 12/14/22 05:38 RBC 2.42 M/uL (4.70-6.10) L 12/14/22 05:38 Hgb 7.2 g/dl (14.0-18.0) L 12/14/22 05:38 Hct 21.4 % (42.0-52.0) L 12/14/22 05:38 MCV 88.4 fL (80.0-100.0) 12/14/22 05:38 MCH 29.8 pg (25.0-34.0) 12/14/22 05:38 MCHC 33.6 g/dL (32.0-36.0) 12/14/22 05:38 RDW Std Deviation 52.8 fL (36.4-46.3) H 12/14/22 05:38 RDW Coeff of Dean 16.2 % (11.5-14.5) H 12/14/22 05:38 Plt Count 71 K/uL (130-400) L 12/14/22 05:38 MPV 12.0 fL (9.4-12.4) 12/14/22 05:38 Immature Gran % (Auto) 2.2 % 12/14/22 05:38 Neut % (Auto) 80.1 % 12/14/22 05:38 Lymph % (Auto) 5.0 % 12/14/22 05:38 [place] % (Auto) 11.7 % 12/14/22 05:38 Eos % (Auto) 0.8 % 12/14/22 05:38 Baso % (Auto) 0.2 % 12/14/22 05:38 Neut # (Auto) 13.74 K/uL (1.40-6.50) H 12/14/22 05:38 Lymph # (Auto) 0.86 K/uL (1.20-3.40) L 12/14/22 05:38 [place] # (Auto) 2.00 K/uL (0.11-0.59) H 12/14/22 05:38 Eos # (Auto) 0.14 K/uL (0.00-0.50) 12/14/22 05:38 Baso # (Auto) 0.03 K/uL (0.00-0.20) 12/14/22 05:38 Immature Gran # (Auto) 0.38 K/uL (0.01-0.20) H 12/14/22 05:38 Absolute Nucleated RBC 0.02 K/uL (0.00-0.12) 12/13/22 05:26 Nucleated RBC % (auto) 0.1 % 12/13/22 05:26 Dohle Bodies 1+ 12/13/22 05:26 Polychromasia 1+ 12/14/22 05:38 Echinocytes 1+ 12/14/22 05:38 Acanthocytes (Spur) 2+ 12/12/22 05:06 PT 17.8 Seconds (9.0-12.0) H 12/13/22 05:26 INR 1.7 (0.9-1.1) H 12/13/22 05:26 APTT 36.5 Seconds (21.0-31.0) H 12/11/22 22:08 PTT Ratio 1.3 12/11/22 22:08 Sodium 130 mmol/L (136-145) L 12/14/22 05:38 Potassium 4.5 mmol/L (3.5-5.1) 12/14/22 05:38 Chloride 100 mmol/L (98-107) 12/14/22 05:38 Carbon Dioxide 23 mmol/L (21-32) 12/14/22 05:38 Anion Gap 7 (3-11) 12/14/22 05:38 BUN 39 mg/dl (6-23) H 12/14/22 05:38 Creatinine 1.18 mg/dl (0.6-1.4) D 12/14/22 05:38 Est Cr Clr Drug Dosing 87.4 ml/min 12/14/22 05:38 Est GFR ( Amer) 76.7 ml/min 12/14/22 05:38 Est GFR (Non-Af Amer) 66.2 ml/min 12/14/22 05:38 BUN/Creatinine Ratio 33.1 (10-20) H 12/14/22 05:38 Glucose 115 mg/dl (70-99(Fasting)) H 12/14/22 05:38 Osmolality 279 mOsm/kg (280-300) L 12/11/22 22:08 Lactate 2.0 mmol/L (0.4-2.0) 12/11/22 23:55 Calcium 7.9 mg/dl (8.6-10.3) L 12/14/22 05:38 Total Bilirubin 2.7 mg/dl (0.2-1.0) H 12/14/22 05:38 Direct Bilirubin 1.0 mg/dl (0-0.2) H 12/12/22 05:06 AST 103 U/L (13-39) H 12/14/22 05:38 ALT 33 U/L (7-52) 12/14/22 05:38 Alkaline Phosphatase 199 U/L (34-104) H 12/14/22 05:38 Ammonia 30.0 umol/L (18-72) 12/11/22 23:55 Total Protein 5.1 gm/dl (6.0-8.3) L 12/14/22 05:38 Albumin 2.8 gm/dl (3.4-5.0) L 12/14/22 05:38 Globulin 2.3 gm/dl (2.5-4.0) L 12/14/22 05:38 Albumin/Globulin Ratio 1.2 (0.9-2) 12/14/22 05:38 Procalcitonin 12.54 ng/ml (0-0.5) H 12/11/22 22:08 Urine Color Dark Yellow 12/12/22 15:25 Urine Appearance Clear (Clear) 12/12/22 15:25 Urine pH 5.0 (4.5-7.5) 12/12/22 15:25 Ur Specific Galvin 1.020 (1.000-1.030) 12/12/22 15:25 Urine Protein Negative (Negative) 12/12/22 15:25 Urine Glucose (UA) Negative (Negative) 12/12/22 15:25 Urine Ketones Negative (Negative) 12/12/22 15:25 Urine Blood 2+ (Negative) H 12/12/22 15:25 Urine Nitrite Negative (Negative) 12/12/22 15:25 Urine Bilirubin Negative (Negative) 12/12/22 15:25 Urine Urobilinogen Negative (Negative) 12/12/22 15:25 Ur Leukocyte Esterase Negative (Negative) 12/12/22 15:25 Urine WBC (Auto) 1-5 /hpf (0-5) 12/12/22 15:25 Urine RBC (Auto) 5-10 /hpf (0-4) H 12/12/22 15:25 U Hyaline Cast (Auto) 1-5 /lpf (0-5) 12/12/22 15:25 U Epithel Cells (Auto) >30 /lpf (0-5) H 12/12/22 15:25 Urine Bacteria (Auto) Negative (Negative) 12/12/22 15:25 Urine Osmolality 437 mOsm/kg (500-800) L 12/12/22 00:34 Ur Random Creatinine 130.0 mg/dl 12/12/22 12:40 U Random Total Protein 21.6 mg/dl (0-11.9) H 12/12/22 12:40 Ur Random Sodium < 10 mmol/L 12/12/22 12:40 Protein/Creatinin Ratio 0.2 (0-0.2) 12/12/22 12:40 Fluid Neutrophils % 61 % 12/13/22 Unknown Fluid Lymphocytes % 21 % 12/13/22 Unknown Fluid Meso/Macro/[place] % 18 % 12/13/22 Unknown Fluid Comment 12/13/22 Unknown Peritoneal Color Pale Yellow 12/13/22 Unknown Peritoneal Appearance Hazy 12/13/22 Unknown Peritoneal WBC (Auto) 237 /ul (0-300) 12/13/22 Unknown Peritoneal RBC (Auto) < 2000 /uL 12/13/22 Unknown Peritoneal Tot Protein < 3.0 gm/dl 12/13/22 Unknown Peritoneal Albumin < 1.5 gm/dl 12/13/22 Unknown Peritoneal Glucose 181 mg/dl 12/13/22 Unknown Urine Opiates Screen Pos (Neg) H 12/13/22 Unknown Ur Methadone, Qual Neg (Neg) 12/13/22 Unknown Urine Barbiturates Neg (Neg) 12/13/22 Unknown Ur Phencyclidine (PCP) Neg (Neg) 12/13/22 Unknown U Amphetamin/Meth Scrn Neg (Neg) 12/13/22 Unknown MDMA (Ecstasy) Screen Neg (Neg) 12/13/22 Unknown U Benzodiazepines Scrn Neg (Neg) 12/13/22 Unknown Ur Cocaine Metabolite Pos (Neg) H 12/13/22 Unknown U Marijuana (THC) Screen Neg (Neg) 12/13/22 Unknown Streptococcus sp PCR DETECTED (NotDetected) A 12/11/22 23:55 Strep agalactiae (PCR) DETECTED (NotDetected) A 12/11/22 23:55 Bld Cult ID Panel PCR See PCR Comment (NotDetected) 12/11/22 23:55 Impressions Abdomen/Pelvis CT 12/11/22 23:37 Exam(s): CT ABDOMEN + PELVIS Without Contrast EXAM: CT Abdomen and Pelvis Without Intravenous Contrast CLINICAL HISTORY: Reason for exam: fall, distended, cirrhosis, OMAIRA. TECHNIQUE: Axial computed tomography images of the abdomen and pelvis without intravenous contrast. Automated exposure control was utilized for the study. A dose lowering technique was utilized adhering to the principles of ALARA. COMPARISON: No relevant prior studies available. FINDINGS: Lung bases: Unremarkable. No mass. No consolidation. ABDOMEN: Liver: Cirrhosis. Abdominal and pelvic ascites. Gallbladder and bile ducts: Unremarkable. No calcified stones. No ductal dilation. Pancreas: Unremarkable. No ductal dilation. Spleen: Unremarkable. No splenomegaly. Adrenals: Unremarkable. No mass. Kidneys and ureters: Unremarkable. No obstructing stones. No hydronephrosis. Stomach and bowel: Diverticulosis. No obstruction. No mucosal thickening. PELVIS: Appendix: No findings to suggest acute appendicitis. Bladder: Unremarkable. No stones. Reproductive: Unremarkable as visualized. ABDOMEN and PELVIS: Intraperitoneal space: See above. Bones/joints: Degenerative changes of the spine. No acute fracture. No dislocation. Soft tissues: Anasarca. Vasculature: Atherosclerotic changes of the aorta. No abdominal aortic aneurysm. Lymph nodes: Unremarkable. No enlarged lymph nodes. IMPRESSION: No acute findings in the abdomen or pelvis. Electronically signed by: Terry Wood MD 12/12/22 01:[address] 12/11/22 23:37 Exam(s): CT C SPINE EXAM: CT Cervical Spine Without Intravenous Contrast CLINICAL HISTORY: Reason for exam: falls. TECHNIQUE: Axial computed tomography images of the cervical spine without intravenous contrast. Automated exposure control was utilized for the study. A dose lowering technique was utilized adhering to the principles of ALARA. COMPARISON: No relevant prior studies available. FINDINGS: The vertebral body heights are maintained. The craniocervical junction is intact. The atlanto-dens interval is maintained. The dens is intact. There is no spondylolisthesis. Multilevel cervical spondylosis and degenerative disc disease. Straightening of the cervical lordosis. The unenhanced neck soft tissues are grossly unremarkable. The visualized lung apices are grossly clear. IMPRESSION: No acute fracture or subluxation of the cervical spine. Electronically signed by: Terry Wood MD 12/12/22 01:[address] 12/11/22 23:37 Exam(s): CT CHEST Without Contrast EXAM: CT Chest Without Intravenous Contrast CLINICAL HISTORY: Reason for exam: falls. TECHNIQUE: Axial computed tomography images of the chest without intravenous contrast. Automated exposure control was utilized for the study. A dose lowering technique was utilized adhering to the principles of ALARA. COMPARISON: No relevant prior studies available. FINDINGS: Lungs: Unremarkable. No mass. No consolidation. Pleural space: Unremarkable. No pneumothorax. No significant effusion. Heart: Unremarkable. No cardiomegaly. No significant pericardial effusion. No significant coronary artery calcifications. Bones/joints: Degenerative changes of the spine. No acute fracture. No dislocation. Soft tissues: Mild bilateral gynecomastia. Vasculature: Atherosclerotic changes of the aorta. No thoracic aortic aneurysm. Lymph nodes: Unremarkable. No enlarged lymph nodes. IMPRESSION: No acute findings in the chest. Electronically signed by: Terry Wood MD 12/12/22 01:[address] 12/11/22 23:37 Exam(s): CT HEAD Without Contrast EXAM: CT Head Without Intravenous Contrast CLINICAL HISTORY: Reason for exam: falls. TECHNIQUE: Axial computed tomography images of the head/brain without intravenous contrast. Automated exposure control was utilized for the study. A dose lowering technique was utilized adhering to the principles of ALARA. COMPARISON: No relevant prior studies available. FINDINGS: No acute intracranial hemorrhage. No midline shift or mass effect. The [place]-white matter differentiation is maintained throughout. Age-related cerebral volume loss. Periventricular and subcortical white matter hypoattenuation, consistent with chronic microangiopathy. The visualized orbits appear grossly unremarkable. The calvarium is intact. The visualized paranasal sinuses and mastoid air cells are grossly clear. IMPRESSION: No acute intracranial hemorrhage, midline shift, or mass effect. Electronically signed by: Terry Wood MD 12/12/22 00:59 AM Paracentesis Ultrasound 12/13/22 07:00 ULTRASOUND-GUIDED PARACENTESIS CLINICAL HISTORY: Ascites PROCEDURE: Procedure and risks were explained. Informed consent was obtained. A final timeout was completed. The left lower quadrant was prepped and draped in sterile fashion. 1% buffered lidocaine was utilized for skin anesthesia. Utilizing ultrasound guidance, a 5 Faroese safety centesis catheter was advanced into the left lower quadrant pocket of ascites. Ultrasound images were obtained. A total of 50 mL of yellow ascites fluid was removed and sent to the lab for analysis. The catheter was removed and Band-Aid applied. The patient tolerated the procedure well. Vital signs will be monitored postprocedure. IMPRESSION: Ultrasound-guided paracentesis as above. Performed, dictated, and signed by Chago Talbert PA-C; to be co-signed by Dr. Davion Whitehead. Electronically signed by: Davion Whitehead M.D. 12/13/2022 2:20 PM Hip/Pelvis X-Ray 12/14/22 09:24 XR hip RT 2V w pelvis HISTORY: 62 years-old Male Right hip pain acute right hip pain COMPARISON: 12/12/2022 TECHNIQUE: AP view of the pelvis with 2 views of the right hip FINDINGS: Mild osteoarthritis of the hips. No acute fracture, dislocation or avascular necrosis. Left pelvic basin phlebolith. IMPRESSION: No acute fracture or dislocation. ACT 112: Negative or not required by law. The above report was generated using voice recognition software. It may contain grammatical, syntax or spelling errors. Electronically signed by: Daryl Miranda M.D. 12/14/2022 11:10 AM
[2022-12-14 13:26] LABS: Methyl Alcohol Comment WHOLE BLOOD; Methyl Alcohol Level NONE DETECTED (NONE DETECTED)
--- NOTE | 2022-12-14 16:03 | Infectious Disease Consult ---
Date of Consultation December 14, 2022 Assessment & Plan (1) Bacteremia due to group B Streptococcus: (2) Bacterial septicemia: Plan Assessment: Sepsis GBS bacteremia of unclear etiology Decompensated liver cirrhosis w/ portal HTN and ascites Active polysubstance abuse (cocaine) Hx of localized shingles on L lower thorax about 1 month ago 12/13/22 - paracentesis Plan: - Continue Ceftriaxone 2 gm iv qd - F/u blood cultures from 12/13: GPC in chains. Once confirmed to be group B Strep , repeat blood cultures - Need ANGIE for further evaluation - Will continue to follow The source of infection is unclear. There is no specific finding on CT and XR to suggest a source. Peritoneal fluid analysis is not consistent w/ SBP. Although he actively uses cocaine, he denies injecting drugs. The skin lesions, known to be shingles, in L lower thorax are already scabbed w/ no evidence of superi mposed bacterial infection. He denies any pain in that location. Even if he has pain, that is likely secondary to postherpetic neuralgia. Given such heavy burden of bacteremia, I recommend ANGIE for further evaluation. More than 50% of [id number] visit was spent counseling and coordinating care pertaining to the patient's infection diagnosis, additional work-up, and treatment option(s) as well as potential adverse events of the treatment. Consultation Information This patient recommendation is based on a telemedicine consult request which was completed asynchronously through chart review and information provided by the primary physician. The patient was not seen or examined today. The evaluation is consultative in nature and all patient care and treatment decisions can either be accepted or rejected by the patient's primary hospital-based treating physician using their own independent medical judgment for their patient. [employer] contact information: Please call [facility] [phone]. (Phone Number For Physician Use Only) Time Spent Reviewing Chart: 31+ minutes History of Present Illness Reason for Consultation: Sepsis w/ group B Streptococcus bacteremia Requesting Physician: Misha Melendez MD Attending Physician: Misha Melendez MD History of Present Illness This 62 y/o male w/ hx of EtOH liver cirrhosis w/ portal HTN and ascites, chronic anemia, and active cocaine abuse. Admitted on 12/12/22 for frequent falls at home and persistent pain(?) on L lower thorax where he had shingles about a month ago. He also developed moderate R hip pain after he fell prior to this admission. The patient ambulates w/ a cane. On admission, no fever but found to have OMAIRA, hyponatremia (Na 125) and leukocytosis w/ Group B bacteremia. Peritoneal fluid analysis was unrevealing. TTE showed no vegetation. CT cervical spine and C/A/P and XR of pelvis were unremarkable. Tox screen was positive for both cocaine and opiates. Started on zosyn and then switched to ceftriaxone 2 gm iv qd. The patient is resting comfortably in bed, reporting pain in R hip w/o any clear exacerbating factors. He denies any pain in the L lower thorax area but "itching." Denies pain in any other joint, abd pain, n/v, f/c, coughing, cp, sob, or any new specific urinary symptoms. He denies injecting illicit drugs: "I rub cocaine" w/ gesture of rubbing his hand again in abdomen. No recent procedure/surgery or injury. He denies any pain in mouth or swelling/bleeding in gum. Allergies Allergy/AdvReac Type Severity Reaction Status Date / Time No Known Allergies Allergy Verified 12/12/22 01:54 Home Medications Medication Instructions Recorded Confirmed Type furosemide 40 mg tablet 40 mg PO QAM 12/12/22 12/12/22 History hydrocodone 5 mg-acetaminophen 325 1 tab PO Q6H PRN Pain 12/12/22 12/12/22 History mg tablet spironolactone 100 mg tablet 100 mg PO QAM 12/12/22 12/12/22 History Patient History Medical History Decompensated hepatic cirrhosis Hx of fracture of patella Iron deficiency anemia Liver cirrhosis Right shoulder injury Surgical History Hx of appendectomy Social History Smoking Status: Former smoker Tobacco Type: Smokeless Tobacco (Dip or Chew) Do You Dip or Chew Tobacco: Yes; Tobacco Cessation Education Requested by Patient: No Hx Alcohol Use: No Hx Substance Use: No Preferred Language: Hebrew Communication Ability: Effective Paint And Table Edger Required: No Beliefs That Will Affect Care: None Current Living Situation: Other Current Living Situation Comment: Lives with 11 year old son Feels Safe at Home: Yes Safety Concerns: Feels Safe At This Time Assistive Devices: Cane Assistive Devices Comment: reading glasses Review of System as HPI and all others negative Physical Exam Constitutional: No actue distress Gastrointestinal (Abdomen): distended Skin: scabbed lesions on L lower thorax w/o surrounding erythema or discharge. Per nursing staff, there is no induration or warmth on or around the scabbed lesions Neurologic: alert and oriented x3 Results & Data Vital Signs (Past 12 Hours) Vital Signs Temp Pulse Pulse Resp BP Pulse Ox O2 Del Method 12/14/22 15:42 36.5 C 76 16 128/70 98 Room Air 12/14/22 15:22 78 12/14/22 08:26 78 12/14/22 11:20 36.4 C L 80 18 130/71 98 Room Air 12/14/22 07:30 36.3 C L 75 18 147/68 H 99 Room Air Laboratory Results WBC 24.59K ->-> 17.15K H 7.2 Plt 71K INR 1.7 Cr 1.8 ->-> 1.18 LFT AST 103, alt 33, alk phos 199 Peritoneal fluid (12/13/22): WBC 237 (N 61%) Urine tox (12/13): pos for cocaine and opiates Peritoneal fluid (12/13): NG TTE (12/13): no evidence of valvular vegetation CT C/A/P: No acute findings in the chest, abdomen or pelvis. CT cervical spine: No acute fracture or subluxation of the cervical spine. Head CT (12/11): No acute intracranial hemorrhage, midline shift, or mass effect. XR pelvis: No acute fracture or dislocation. Diagnostic Findings Blood cx (12/11): GBS (4 of 4) Blood cx (12/13): GPC in chains (1 of 4) Medications Administered zosyn -> CTX 2 gm iv qd
[2022-12-14] MEDS: cefTRIAXone SODIUM 2,000 MG in DEXTROSE 5% 50 ML IV SCH (16:11)
[2022-12-15] MEDS: ALBUMIN 25% 25 GM/100 ML VIAL IV SCH ×2 (01:28→06:30)
[2022-12-15] MEDS: oxyCODONE HCL IR 5 MG TAB (IMMEDIATE RELEASE) PO PRN (04:28)
[2022-12-15 06:40] LABS: Hematocrit (blood only) 20.7 % (42.0-52.0); Mean Corpuscular Hemoglobin 29.9 pg (25.0-34.0); Mean Corpuscular Hgb Conc 33.8 g/dL (32.0-36.0); Mean Corpuscular Volume 88.5 fL (80.0-100.0); Mean Platelet Volume 11.9 fL (9.4-12.4); Platelet Count 67 K/uL (130-400); RDW Coefficient of Variation 16.4 % (11.5-14.5); Red Blood Count 2.34 M/uL (4.70-6.10); White Blood Count 11.92 K/ul (4.8-10.8)
[2022-12-15 06:43] LABS: Anisocytosis Present; Basophils # (auto) 0.04 K/uL (0.00-0.20); Basophils % (auto) 0.3 %; Eosinophils % (auto) 1.7 %; Hypochromasia Present; Immature Granulocytes % (auto) 3.4 %; Lymphocytes % (auto) 7.6 %; Monocytes # (auto) 1.43 K/uL (0.11-0.59); Neutrophils # (auto) 8.95 K/uL (1.40-6.50); Polychromasia 1+
[2022-12-15 07:17] LABS: Albumin Globulin Ratio 1.4 (0.9-2); Albumin Level 3.2 gm/dl (3.4-5.0); BUN Creatinine Ratio 34.3 (10-20); Bilirubin,Total 3.3 mg/dl (0.2-1.0); Calcium 8.3 mg/dl (8.6-10.3); Creatinine Clr Calc Pharmacy 104.4 ml/min; Est GFR (African American) 94.9 ml/min; Est GFR (Non-African American) 81.9 ml/min; Globulin 2.3 gm/dl (2.5-4.0); Potassium 4.5 mmol/L (3.5-5.1); Total Protein 5.5 gm/dl (6.0-8.3)
--- NOTE | 2022-12-15 08:35 | Hospitalist Progress Note ---
Date of Service December 15, 2022 Assessment & Plan (1) Acute hyponatremia: (2) OMAIRA (acute kidney injury): (3) Bacteremia: Plan: 62-year-old male past med significant for portal hypertension, alcoholic cirrhosis of liver with ascites, iron deficiency anemia, history of cocaine abuse, states he did drink alcohol last 1 year, having shingles in left lower rib cage extending to the back since last 1 month comes because of frequent falls, pain from his shingles and abdominal discomfort and found to have hyponatremia and leukocytosis. Gram-positive bacteremia 62-year-old male with history of decompensated liver cirrhosis presents with fall and abdominal discomfort History of singles since last 1 month. Reports history of rubbing cocaine on the wound. Also reports self extracting his tooth a couple of weeks ago. Hypotensive on arrival 4 out of 4 blood culture positive for gram-positive cocci in chains; blood culture positive for Streptococcus agalactiae Leukocytosis present Underwent diagnostic paracentesis in a 12/13/2022; Labs reviewed Total WBC count up 237 with 61% neutrophils. Not suggestive of SBP. The likely source of his bacteremia is probably from his tooth. He is improving on ceftriaxone. Repeat blood cultures are negative so far. Transthoracic echocardiogram done; no findings suggestive of vegetation. Infectious disease consulted and recommend a ANGIE which cannot safely be performed given esophageal varices and anemia Cardiology will plan to repeat TTE with closer visualization of the valves. Acute kidney injury Likely secondary to sepsis/diuretics use. Diuretics were held and kidney injury is resolved to baseline creatinine. Hyponatremia Nephrology consulted and continued on fluid restriction and low-sodium diet. Improved to 130 Shingles Pain control. Alcoholic liver cirrhosis, decompensated Hold diuretics given OMAIRA, sepsis Elevated LFTs present GI saw patient and recommends there was no evidence of SBP to explain his group B strep bacteremia. History of iron deficiency anemia and ACD Hct <20 and patient is fatigued and run down. Denies SOB or chest pain. Transfuse 1 unit of blood today. Thrombocytopenia Secondary to decompensated liver cirrhosis. chronic, stable. No evidence of active bleeding. DVT prophylaxis SCDs given thrombocytopenia and anemia requiring transfusion Disposition telemetry floor. He continues to be hospitalized for sepsis requiring IV antibiotics. Full code Time spent evaluating patient, direct bedside care, chart review, placing orders, interpretation of diagnostic studies, discussion with consultants, patient, and family members, as well as other required patient management activities is 60 minutes. Diane Farris DO [facility] Hospitalist Admission and Anticipated Discharge Date Admission Date: December 12, 2022 Subjective 62-year-old man with history of decompensated alcoholic cirrhosis complicated by nonbleeding varices and ascites on diuretics presented with low sodium, falls and found to have gram-positive bacteremia. Uses cocaine weekly. Reported shingles on his left side and was rubbing cocaine into the wound to "numb the pain. Today he also reports having self extracted a tooth which may be the source of his bacteremia. Today's hemoglobin is 7 and he reports feeling tired and rundown. This is consistent with symptomatic anemia and he was consented for 1 unit of blood. He denies any pain today except "in my ass" He has remained afebrile overnight There have been concerns expressed by staff that he is going into and out of the bathroom and there is a question that he may be using street drugs. Physical Exam Physical Exam: CONSTITUTIONAL: morbid obesity, vitals as above, generally well-appearing, NAD EYES: normal conjunctivae, no scleral icterus ENT: external ear and nose normal, MMM NECK: trachea midline RESPIRATORY: clear to auscultation bilaterally, no crackles, rales or wheezes, normal respiratory effort CARDIOVASCULAR: regular rate and rhythm, S1 and 2 heard without murmurs, gallops or rubs, no JVD, no peripheral edema CHEST: inspection of chest was normal GASTROINTESTINAL: soft, nontender, protuberant, ND, no guarding MUSCULOSKELETAL: strength 5/5 throughout, head is normocephalic and atraumatic SKIN: warm and dry NEUROLOGIC: CN 2-12 grossly intact, no sensory deficit, normal cognition, normal speech, no tremor PSYCHIATRIC: alert cooperative and oriented to person, place and time. Results & Data Results & Data Vital Signs (Past 12 Hours) Vital Signs Temp Pulse Pulse Resp BP BP Pulse Ox 12/15/22 07:20 36.5 C 81 20 156/73 H 97 12/15/22 04:15 37.2 C 79 20 120/58 L 96 12/15/22 00:31 79 12/14/22 22:25 36.9 C 77 16 146/66 H 97 12/14/22 21:20 O2 Del Method 12/15/22 07:20 Room Air 12/15/22 04:15 Room Air 12/15/22 00:31 12/14/22 22:25 Room Air 12/14/22 21:20 Room Air Laboratory Results Short CBC 12/15/22 Range/Units 05:30 WBC 11.92 H (4.8-10.8) K/ul Hgb 7.0 L (14.0-18.0) g/dl Hct 20.7 L* (42.0-52.0) % Plt Count 67 L (130-400) K/uL BMP 12/15/22 05:30 Sodium 130 L Potassium 4.5 Chloride 101 Carbon Dioxide 23 BUN 34 H Creatinine 0.99 Glucose 115 H Calcium 8.3 L Liver Function 12/15/22 Range/Units 05:30 Total Bilirubin 3.3 H (0.2-1.0) mg/dl AST 76 H (13-39) U/L ALT 25 (7-52) U/L Alkaline Phosphatase 110 H (34-104) U/L Albumin 3.2 L (3.4-5.0) gm/dl Medications Administered Current Inpatient Medications Hydromorphone HCl (Hydromorphone Inj 0.5 Mg/0.5 Ml Syr) 0.5 mg IV Q6H PRN PRN Reason: Severe Pain (Scale 7, 8, 9,10) Stop: 12/26/22 04:19 Albumin Human (Albumin 25%) 25 gm in 100 mls @ 50 mls/hr IV Q6H [facility] Stop: 12/15/22 12:59 Last Admin: 12/15/22 06:30 Dose: 50 mls/hr Ceftriaxone Sodium 2,000 mg/ (Dextrose) 70 mls @ 140 mls/hr IV DAILY@1600 [facility] Stop: 12/27/22 15:59 Last Infusion: 12/14/22 17:17 Dose: Infused Nitroglycerin (Nitroglycerin Sl 0.4 Mg/Tab Tab) 0.4 mg SL Q5M PRN PRN Reason: Chest Pain Stop: 01/11/23 04:19 Oxycodone HCl (Oxycodone Hcl Ir 5 Mg Tab (Immediate Release)) 5 mg PO Q6H PRN PRN Reason: Pain Stop: 12/26/22 15:03 Last Admin: 12/15/22 04:28 Dose: 5 mg Sodium Chloride (Sodium Chloride 0.65% Na Soln 45 Ml ([place])) 2 sprays NA Q4H PRN PRN Reason: dry nose Stop: 01/12/23 22:57
--- NOTE | 2022-12-15 10:44 | Nephrology Progress Note ---
Date of Service December 15, 2022 Assessment & Plan (1) Hyponatremia: Plan: new onset moderate to severe hypervolemic hyponatremia (125 on 12/11 presentation)>> not likely to make much headway on this while we are holding diuretics and giving IV abtx >> treating bacteremia and acute kidney injury takes clinical priority over sodium currently. Satisfactory provided sodium is not worsening -continue FR 2L and low sodium diet -encourage protein intake > protein shakes do not count toward FR -control shingles and other pain -Daily basic metabolic panel -would hold off another day before resuming diuretics >abtx are concentrated > 70 ml/day w/ ceftriax (2) OMAIRA (acute kidney injury): Plan: Slowly improving/ now resolved stage 1 nonoliguric OMAIRA versus CKD emerging in setting of obligate diuretics and w/ microhematuria, active shingles, bacteremia. Baseline creatinine 1.September. No proteinuria; random urine sodium less than 10; concentrated dark yellow urine with 2+ blood -now at baseline renal function -Continue albumin through 0700 tomorrow; look to pause albumin then resume diure tics next 24-36 hrs depending on clinical status >f/u repeat blood cxs; one bottle GPC chains other 3 NGTD >for TTE Care coordinated w/ Dr Farris. Admission and Anticipated Discharge Date Admission Date: December 12, 2022 Subjective Tells me he pulled the tooth on his own about 4 weeks ago. Ongoing complaint of right hip pain new since arrival to hospital. Denies shortness of breath denies worsening abdominal distention denies worsening lower extremity edema Review of Systems Review of Systems: All systems reviewed & are unremarkable except as noted in Subjective Physical Exam Constitutional: well developed, well nourished, + frail appearing and + lethargic; no acute distress Eyes: EOM intact bilaterally ENMT: Ears: no external ear abnormality Nose: no external nose abnormality Mouth: + dry oral mucous membranes Neck: no nuchal rigidity Respiratory: normal respiratory effort Auscultation: + diminished lung sounds Cardiovascular: Rate/Rhythm: regular rate and regular rhythm Extremities: + edema (1+) Gastrointestinal (Abdomen): Inspection/Auscultation: + abdomen distended and normal bowel sounds Percussion/Palpation: abdomen soft and + ascites; abdomen nontender Musculoskeletal: Extremities: strength 5/5 throughout Results & Data Vital Signs (Past 12 Hours) Vital Signs Temp Pulse Pulse Resp BP BP Pulse Ox 12/15/22 09:00 77 12/15/22 07:20 36.5 C 81 20 156/73 H 97 12/15/22 04:15 37.2 C 79 20 120/58 L 96 12/15/22 00:31 79 O2 Del Method 12/15/22 09:00 12/15/22 07:20 Room Air 12/15/22 04:15 Room Air 12/15/22 00:31 Laboratory Results 12/15/22 05:30 12/15/22 05:30
--- NOTE | 2022-12-15 11:07 | Gastroenterology Progress Note ---
Date of Service December 15, 2022 Assessment & Plan (1) Decompensated hepatic cirrhosis: (2) Bacteremia: Plan: Pt is a 62 yo male w hx of ETOH cirrhosis (current MELD 22), presented w symptoms of weakness, falls, found to have hyponatremia and bacteremia, Group B strep growing in blood culture (? infection source related to him applying cocaine on shingles wound). He also has ascites, US diagnostic paracentesis showed no SBP. Last ETOH intake >1yr ago. Chews tobacco, intermittent cocaine use. - Cr normalized and hyponatremia improved. Albumin infusion will stop today and anticipate restarting his diuretics - Monitor blood ct and transfuse for goal Hgb >7 - Ceftriaxone IV for bacteremia. ANGIE per ID's recs - 2g Na diet, 1.5L fluid restriction - F/U PEth level - Consider Neuro consult if continues to have weakness once infection and hyponatremia treated - Pls recall GI prn Admission and Anticipated Discharge Date Admission Date: December 12, 2022 Supervising Physician Co-Signing Physician Notes I personally saw and evaluated the patient on 12/15/2022 with RONNIE Lindsay and agree with her findings and plan of care. 62 y/o M with history of decompensated alcohol cirrhosis c/b non-bleeding varices and ascites on diuretics who presented with hyponatremia and falls found to have gram + bacteremia. He denies alcohol use for the past year but does use cocaine weekly. He states he recently had shingles over his L side and was treated for this but the pain was so bad he was rubbing cocaine onto the open wounds to "numb the pain." When he was recently seen in the office his MELD was only 14 and he was overall well compensated with last paracentesis being in September. he states that he continued to eat and drink well at home but he felt so weak that his body would just give out and he fell a total of 7 times. Denies hitting his head, syncope, or LOC. On admission found to have OMAIRA with Cr of 1.5, hyponatremia with Na of 125. MELD-Na score [address] by OMAIRA and hyponatremia. On exam he is AAOx3 without asterixis, small ascites but non- tender to exam, large scabs over L side of abdomen and flank from recent shingles, no LE edema. Mild scleral icterus. Appears chronically ill. Paracentesis studies reviewed this admission and NO evidence of SBP. Echo with any evidence of endocarditis. Cr has now normalized. No evidence of SBP to explain his group B strep bacteremia. I did explain to him given he had open wounds over abdomen and he rubbed cocaine over them this is a potential source of bacterial entry. he also reported to nephrology he pulled his own tooth out a few weeks ago (molar) so this could be a potential source as well. Planning for ANGIE today to evaluate for any vegetations. ID and nephrology are following. 2 gram sodium restricted diet and 2L fluid restriction. Daily MELD labs. Check PETH test. He denies alcohol use and only admits to cocaine at this time. Mallory Katz, DO Gastroenterology and Hepatology Subjective Patient denies any chest pain, shortness of breath, abdominal pain, nausea or vomiting. Seen by infectious disease yesterday and recommended to have ANGIE. Review of Systems Review of Systems: All systems reviewed & are unremarkable except as noted in HPI & below Physical Exam Constitutional: WD/WN, vitals as above well groomed, cooperative and comfortable Eyes: PERRL, conjunctivae normal, anicteric sclerae ENMT: external ear and nose normal, oropharynx normal Respiratory: normal respiratory effort, lungs clear to auscultation Cardiovascular: RRR, no murmur, no edema Gastrointestinal (Abdomen): normal bowel sounds, soft, nontender, no hepatosplenomegaly Skin: no rashes, warm and dry no jaundice Neurologic: Motor/Sensory: no asterixis Psychiatric: A+Ox3, euthymic affect Lymphatic: no lymphedema Results & Data Vital Signs (Past 12 Hours) Vital Signs Temp Pulse Pulse Resp BP BP Pulse Ox 12/15/22 11:00 36.7 C 66 19 145/66 H 96 12/15/22 09:00 77 12/15/22 07:20 36.5 C 81 20 156/73 H 97 12/15/22 04:15 37.2 C 79 20 120/58 L 96 12/15/22 00:31 79 O2 Del Method 12/15/22 11:00 Room Air 12/15/22 09:00 12/15/22 07:20 Room Air 12/15/22 04:15 Room Air 12/15/22 00:31
[2022-12-15] MEDS ORDERED: SODIUM CHLORIDE 0.9% 250 ML IV PRN (15:10)
[2022-12-15] MEDS ORDERED: NALOXONE HCL 0.4 MG/1 ML VIAL/CARP IV STA (19:54)
--- NOTE | 2022-12-15 19:56 | Communication Note ---
Date of Service: December 15, 2022 Patient noted to be lethargic and only responsive to pain as per RN. Earlier today, patient visitor brought him a duffel bag. Cried later found by security to contain drugs and paraphernalia. History of cocaine and narcotic meds being confiscated inpatient before as per RN. Patient more awake after Narcan administration as per RN. One-to-one (RN discretion) given inpatient drug abuse concerns.
[2022-12-15] MEDS ORDERED: ACETAMINOPHEN 500 MG TAB PO PRN (20:00)
[2022-12-15] MEDS: cefTRIAXone SODIUM 2,000 MG in DEXTROSE 5% 50 ML IV SCH (20:13)
[2022-12-16 06:46] LABS: Hematocrit (blood only) 23.8 % (42.0-52.0); Hemoglobin 7.8 g/dl (14.0-18.0); Mean Corpuscular Hgb Conc 32.8 g/dL (32.0-36.0); Mean Corpuscular Volume 88.5 fL (80.0-100.0); Mean Platelet Volume 11.3 fL (9.4-12.4); Platelet Count 81 K/uL (130-400); RDW Coefficient of Variation 17.1 % (11.5-14.5); RDW Standard Deviation 55.3 fL (36.4-46.3); Red Blood Count 2.69 M/uL (4.70-6.10); White Blood Count 13.66 K/ul (4.8-10.8)
[2022-12-16 07:04] LABS: BUN Creatinine Ratio 28.6 (10-20); C Reactive Protein 8.16 mg/dl (0-0.5); Calcium 8.4 mg/dl (8.6-10.3); Creatinine Clr Calc Pharmacy 105.4 ml/min; Est GFR (African American) 96.1 ml/min; Est GFR (Non-African American) 82.9 ml/min; Potassium 4.7 mmol/L (3.5-5.1)
[2022-12-16 10:26] LABS: Cocaine, Urine >15000 ng/mL (<100); Codeine Urine NEGATIVE ng/mL (<50); Hydrocodone Urine 489 ng/mL (<50); Hydromor Urine NEGATIVE ng/mL (<50); Morphine Urine NEGATIVE ng/mL (<50); Norhydrocodone Conf Ur 528 ng/mL (<50); Noroxycodone Urine 578 ng/mL (<50); Oxycodone Urine 1980 ng/mL (<50); Oxymorph Urine NEGATIVE ng/mL (<50)
[2022-12-16] MEDS ORDERED: OPTIRAY 320 100ml IV ONE (11:39)
--- NOTE | 2022-12-16 11:44 | Nephrology Progress Note ---
Date of Service December 16, 2022 Assessment & Plan (1) Hyponatremia: Plan: new onset moderate to severe hypervolemic hyponatremia (125 on 12/11 presentation)>> not likely to make much headway on this while we are holding diuretics and giving IV abtx >> treating bacteremia and acute kidney injury takes clinical priority over sodium currently. Satisfactory provided sodium is not worsening and today it's better actually >>>>will hold off on resuming diuretics as order is in for IV contrast >>>recommend resume OP diuretics 48 hrs after receiving IV con, assuming renal function and sodium stable; ->>>needs Daily basic metabolic panel -continue FR 2L and low sodium diet -encourage protein intake > protein shakes do not count toward FR -control shingles and other pain >abtx are concentrated > 70 ml/day w/ ceftriax NEPHRO d/c RECS >d/c on 1.5L FR and low Na diet >protein shakes do not count toward FR >nephro hospital d/c appt in [facility] or [facility] any provider 2-4 wks after hospital d/c w/ renal nurse to order BMP 3-5 days prior to appt -continue routine OP abtx at hospital d/c (2) OMAIRA (acute kidney injury): Plan: Slowly improving/ now resolved stage 1 nonoliguric OMAIRA versus CKD emerging in setting of obligate diuretics and w/ microhematuria, active shingles, bacteremia. Baseline creatinine 1.September. No proteinuria; random urine sodium less than 10; concentrated dark yellow urine with 2+ blood -now at baseline renal function -Continue albumin through 0700 tomorrow; look to pause albumin then resume diuretics next 24-36 hrs depending on clinical status >f/u repeat blood cxs; one bottle GPC chains other 3 NGTD >for TTE > no vegetations, severe PH Admission and Anticipated Discharge Date Admission Date: December 12, 2022 Subjective got narcan ON and noted to have drugs/paraphernalia in duffel brought to hospital by visitor to pt; hx of cocaine and narcotic use > on 1:1 for a time (but off it by late am); for IV con face after self extraction molar; no sob, no worsening edema; ongoing c/o R hip pain Review of Systems Review of Systems: All systems reviewed & are unremarkable except as noted in Subjective Physical Exam Constitutional: well developed and well nourished; no acute distress Eyes: EOM intact bilaterally ENMT: Ears: no external ear abnormality Nose: no external nose abnormality Mouth: + dry oral mucous membranes Neck: no nuchal rigidity Respiratory: normal respiratory effort Auscultation: + diminished lung sounds Cardiovascular: Rate/Rhythm: regular rate and regular rhythm Extremities: + edema (1+) Gastrointestinal (Abdomen): Inspection/Auscultation: + abdomen distended and normal bowel sounds Percussion/Palpation: abdomen soft and + ascites; abdomen nontender Musculoskeletal: Extremities: strength 5/5 throughout Results & Data Vital Signs (Past 12 Hours) Vital Signs Temp Pulse Resp BP BP Pulse Ox O2 Del Method 12/16/22 08:09 36.7 C 79 18 146/67 H 96 Room Air 12/16/22 04:21 36.8 C 81 18 169/72 H 98 Room Air 12/16/22 04:00 O2 Del Method 12/16/22 08:09 12/16/22 04:21 12/16/22 04:00 Room Air Laboratory Results 12/16/22 05:28 12/16/22 05:28
--- NOTE | 2022-12-16 12:08 | CT Scan Report ---
CT facial bones w con CLINICAL HISTORY: ro odontogenic infx after self-extraction of molar TECHNIQUE: Multidetector row helical CT of the maxillofacial bones was performed with administration of intravenous contrast, and processed with bone and soft tissue algorithms. Coronal and sagittal ref ormations were obtained. Automated dose lowering techniques and/or adjustment according to patient si ze were utilized for this exam. Comparison: None available at the time of this dictation. FINDINGS: Dental caries are noted most prominent in the second right mandibular molar, mild associated periapic al lucency is seen. There is a lucency in the socket of the right second mandibular incisor, the toot h is absent. No significant soft tissue swelling or abscess is seen. Nasal bones are normal. The eric ible is intact. The temporomandibular joints are anatomically aligned. Pterygoid plates are intact. Zygomatic arches are intact. The globes are normal and symmetric, without proptosis, obvious disruption or lens dislocation. Ther e is no orbital radiopaque foreign body. The orbital sabillon are intact. The retrobulbar fat is without evidence of disruption. Extraocular muscles are normal and symmetric. Optic nerve sheath complexes are normal in course and caliber. Imaged portions of the paranasal sinuses and mastoid air cells are clear. IMPRESSION: Dental caries and mild periapical abscess of the right second mandibular molar. There is a lucency at the socket of the right second mandibular incisor, which is nonspecific however infectious process c annot be excluded. No soft tissue swelling, cortical breakthrough or drainable abscess is seen. ACT 112: Negative or not required by law. Electronically signed by: Josué Greco M.D. 12/16/2022 12:06 PM
[2022-12-16] MEDS: cefTRIAXone SODIUM 2,000 MG in DEXTROSE 5% 50 ML IV SCH (15:48)
--- NOTE | 2022-12-16 17:48 | Hospitalist Progress Note ---
Date of Service December 16, 2022 Assessment & Plan (1) Acute hyponatremia: (2) OMAIRA (acute kidney injury): (3) Bacteremia: Plan: 62-year-old male past med significant for portal hypertension, alcoholic cirrhosis of liver with ascites, iron deficiency anemia, history of cocaine abuse, states he did drink alcohol last 1 year, having shingles in left lower rib cage extending to the back since last 1 month comes because of frequent falls, pain from his shingles and abdominal discomfort and found to have hyponatremia and leukocytosis. Gram-positive bacteremia 62-year-old male with history of decompensated liver cirrhosis presents with fall and abdominal discomfort History of singles since last 1 month. Reports history of rubbing cocaine on the wound. Also reports self extracting his tooth a couple of weeks ago. Hypotensive on arrival 4 out of 4 blood culture positive for gram-positive cocci in chains; blood culture positive for Streptococcus agalactiae Leukocytosis present Underwent diagnostic paracentesis in a 12/13/2022; Labs reviewed Total WBC count up 237 with 61% neutrophils. Not suggestive of SBP. The likely source of his bacteremia is probably from his tooth. He is improving on ceftriaxone. Repeat blood cultures are negative so far. Transthoracic echocardiogram done; no findings suggestive of vegetation. Infectious disease consulted and recommend a ANGIE which cannot safely be performed given esophageal varices and anemia Cardiology will plan to repeat TTE with closer visualization of the valves. Acute kidney injury Likely secondary to sepsis/diuretics use. Diuretics were held and kidney injury is resolved to baseline creatinine. Hyponatremia Nephrology consulted and continued on fluid restriction and low-sodium diet. Improved to 130 Shingles Pain control. Alcoholic liver cirrhosis, decompensated Hold diuretics given OMAIRA, sepsis Elevated LFTs present GI saw patient and recommends there was no evidence of SBP to explain his group B strep bacteremia. History of iron deficiency anemia and ACD Hct <20 and patient is fatigued and run down. Denies SOB or chest pain. Transfuse 1 unit of blood with good result. Thrombocytopenia Secondary to decompensated liver cirrhosis. chronic, stable. No evidence of active bleeding. DVT prophylaxis SCDs given thrombocytopenia and anemia requiring transfusion Disposition telemetry floor. He continues to be hospitalized for sepsis requiring IV antibiotics. Full code Time spent evaluating patient, direct bedside care, chart review, placing orders, interpretation of diagnostic studies, discussion with consultants, patient, and family members, as well as other required patient management veda vega is 60 minutes. DO [facility] Hospitalist Admission and Anticipated Discharge Date Admission Date: December 12, 2022 Subjective 62-year-old man with history of decompensated alcoholic cirrhosis complicated by nonbleeding varices and ascites on diuretics presented with low sodium, falls and found to have gram-positive bacteremia. reports still feeling poorly despite blood transfusion has itching and irritation in his shingles rash found unreponsive last evening wtih drugs in his room. Narcan required--oriented today. Pain in lower back reported. Physical Exam Physical Exam: CONSTITUTIONAL: morbid obesity, vitals as above, generally well-appearing, NAD EYES: normal conjunctivae, no scleral icterus ENT: external ear and nose normal, MMM NECK: trachea midline RESPIRATORY: clear to auscultation bilaterally, no crackles, rales or wheezes, normal respiratory effort CARDIOVASCULAR: regular rate and rhythm, S1 and 2 heard without murmurs, gallops or rubs, no JVD, no peripheral edema CHEST: inspection of chest was normal GASTROINTESTINAL: soft, nontender, protuberant, ND, no guarding MUSCULOSKELETAL: strength 5/5 throughout, head is normocephalic and atraumatic SKIN: warm and dry NEUROLOGIC: CN 2-12 grossly intact, no sensory deficit, normal cognition, normal speech, no tremor PSYCHIATRIC: alert cooperative and oriented to person, place and time. Results & Data Results & Data Vital Signs (Past 12 Hours) Vital Signs Temp Pulse Pulse Resp BP BP Pulse Ox 12/16/22 12:50 36.6 C 82 18 156/78 H 99 12/16/22 12:01 36.6 C 79 18 154/70 H 98 12/16/22 08:09 36.7 C 79 18 146/67 H 96 O2 Del Method 12/16/22 12:50 Room Air 12/16/22 12:01 Room Air 12/16/22 08:09 Room Air Laboratory Results Short CBC 12/16/22 Range/Units 05:28 WBC 13.66 H (4.8-10.8) K/ul Hgb 7.8 L (14.0-18.0) g/dl Hct 23.8 L (42.0-52.0) % Plt Count 81 L (130-400) K/uL BMP 12/16/22 05:28 Sodium 135 L Potassium 4.7 Chloride 105 Carbon Dioxide 26 BUN 28 H Creatinine 0.98 Glucose 127 H Calcium 8.4 L Diagnostic Findings Face CT 12/15/22 21:11 CT facial bones w con CLINICAL HISTORY: ro odontogenic infx after self-extraction of molar TECHNIQUE: Multidetector row helical CT of the maxillofacial bones was performed with administration of intravenous contrast, and processed with bone and soft tissue algorithms. Coronal and sagittal reformations were obtained. Automated dose lowering techniques and/or adjustment according to patient size were utilized for this exam. Comparison: None available at the time of this dictation. FINDINGS: Dental caries are noted most prominent in the second right mandibular molar, mild associated periapical lucency is seen. There is a lucency in the socket of the right second mandibular incisor, the tooth is absent. No significant soft tissue swelling or abscess is seen. Nasal bones are normal. The mandible is intact. The temporomandibular joints are anatomically aligned. Pterygoid plates are intact. Zygomatic arches are intact. The globes are normal and symmetric, without proptosis, obvious disruption or lens dislocation. There is no orbital radiopaque foreign body. The orbital sabillon are intact. The retrobulbar fat is without evidence of disruption. Extraocular muscles are normal and symmetric. Optic nerve sheath complexes are normal in course and caliber. Imaged portions of the paranasal sinuses and mastoid air cells are clear. IMPRESSION: Dental caries and mild periapical abscess of the right second mandibular molar. There is a lucency at the socket of the right second mandibular incisor, which is nonspecific however infectious process cannot be excluded. No soft tissue swelling, cortical breakthrough or drainable abscess is seen. ACT 112: Negative or not required by law. Electronically signed by: Josué Greco M.D. 12/16/2022 12:06 PM Medications Administered Current Inpatient Medications Acetaminophen (Acetaminophen 500 Mg Tab) 500 mg PO Q6H PRN PRN Reason: Pain/Fever Stop: 01/14/23 19:59 Ceftriaxone Sodium 2,000 mg/ (Dextrose) 70 mls @ 140 mls/hr IV DAILY@1600 CYNTHIA Stop: 12/27/22 15:59 Last Infusion: 12/16/22 16:34 Dose: Infused Nitroglycerin (Nitroglycerin Sl 0.4 Mg/Tab Tab) 0.4 mg SL Q5M PRN PRN Reason: Chest Pain Stop: 01/11/23 04:19 Sodium Chloride (Sodium Chloride 0.65% Na Soln 45 Ml ([place])) 2 sprays NA Q4H PRN PRN Reason: dry nose Stop: 01/12/23 22:57
[2022-12-16] MEDS: BACITRACIN OINT 14 GM TUBE EXT SCH (20:04)
[2022-12-16] MEDS: metroNIDAZOLE 500 MG/100 ML BAG IV SCH (20:04)
[2022-12-16] MEDS: PREGABALIN 25 MG CAP PO SCH (20:06)
[2022-12-17] MEDS: metroNIDAZOLE 500 MG/100 ML BAG IV SCH ×3 (03:35→18:34)
[2022-12-17] MEDS: BACITRACIN OINT 14 GM TUBE EXT SCH ×2 (09:02→23:05)
[2022-12-17] MEDS: PREGABALIN 25 MG CAP PO SCH ×2 (09:02→23:05)
--- NOTE | 2022-12-17 10:00 | Hospitalist Progress Note ---
Date of Service December 17, 2022 Assessment & Plan (1) Acute hyponatremia: (2) OMAIRA (acute kidney injury): (3) Bacteremia: Plan: 62 yo M with portal hypertension, alcoholic cirrhosis of liver with ascites, iron deficiency anemia, history of cocaine abuse, states he did drink alcohol last 1 year, having shingles in left lower rib cage extending to the back since last 1 month comes because of frequent falls, pain from his shingles and abdominal discomfort and found to have hyponatremia and leukocytosis. Gram-positive bacteremia 62 yo M with history of decompensated liver cirrhosis presents with fall and abdominal discomfort History of singles since last 1 month. Reports history of rubbing cocaine on the wound. Also reports self extracting his tooth a couple of weeks ago. Hypotensive on arrival 4 out of 4 blood culture positive for gram-positive cocci in chains; blood culture positive for Streptococcus agalactiae (Group B strep) Leukocytosis present Underwent diagnostic paracentesis in a 12/13/2022; Labs reviewed Total WBC count up 237 with 61% neutrophils. Not suggestive of SBP. The likely source of his bacteremia is probably from his tooth. He is improving on ceftriaxone. Repeat blood culture from 12/13 - positive for Group B strep, the rest negative so far. Transthoracic echocardiogram done; no findings suggestive of vegetation. Infectious disease consulted and recommend a ANGIE which cannot safely be performed given esophageal varices and anemia Cardiology repeated TTE with closer visualization of the valves - no vegetations reported. Acute kidney injury Likely secondary to sepsis/diuretics use. Diuretics were held and kidney injury is resolved to baseline creatinine. Hyponatremia Nephrology consulted and continued on fluid restriction and low-sodium diet. Improved to 133 Shingles Pain control. Alcoholic liver cirrhosis, decompensated Hold diuretics given OMAIRA, sepsis Elevated LFTs present GI saw patient and recommends there was no evidence of SBP to explain his group B strep bacteremia. Current MELD score 20, cont. to monitor History of iron deficiency anemia and ACD Hct <20 and patient is fatigued and run down. Denies SOB or chest pain. Transfused 1 unit of blood with good result. Thrombocytopenia Secondary to decompensated liver cirrhosis. chronic, stable. No evidence of active bleeding. DVT prophylaxis SCDs given thrombocytopenia and anemia requiring transfusion Disposition telemetry floor. He continues to be hospitalized for sepsis requiring IV antibiotics. Full code Admission and Anticipated Discharge Date Admission Date: December 12, 2022 Subjective 62 yo M with history of decompensated alcoholic cirrhosis complicated by nonbleeding varices and ascites on diuretics presented with low sodium, falls and found to have gram-positive bacteremia. reports still feeling poorly has itching and irritation in his shingles rash previously found unresponsive evening with drugs in his room. and Narcan required Pain in lower back reported. Currently laying in bed in [facility], he is drowsy but able to answer appropriately. Only concerned about shingles pain, and some R hip discomfort Review of Systems Review of Systems: All systems reviewed & are unremarkable except as noted in Subjective Physical Exam Physical Exam: CONSTITUTIONAL: obese M in NAD EYES: normal conjunctivae, no scleral icterus ENT: external ear and nose normal, MMM NECK: trachea midline RESPIRATORY: clear to auscultation bilaterally, no crackles, rales or wheezes, normal respiratory effort CARDIOVASCULAR: regular rate and rhythm, no murmurs CHEST: inspection of chest normal GASTROINTESTINAL: soft, nontender, protuberant, ND, no guarding MUSCULOSKELETAL: strength 5/5 throughout, head is normocephalic and atraumatic SKIN: warm and dry NEUROLOGIC: CN 2-12 grossly intact, no sensory deficit, normal cognition, normal speech, no tremor PSYCHIATRIC: alert cooperative and oriented to person, place and time. Results & Data Results & Data Vital Signs (Past 12 Hours) Vital Signs Temp Pulse Resp BP Pulse Ox O2 Del Method 12/17/22 07:17 36.8 C 73 18 146/78 H 97 Room Air Laboratory Results 12/17/22 12/17/22 12/17/22 Range/Units 10:13 10:13 10:13 WBC 11.38 H (4.8-10.8) K/ul RBC 2.55 L (4.70-6.10) M/uL Hgb 7.5 L (14.0-18.0) g/dl Hct 23.4 L (42.0-52.0) % MCV 91.8 (80.0-100.0) fL MCH 29.4 (25.0-34.0) pg MCHC 32.1 (32.0-36.0) g/dL RDW Std Deviation 57.4 H (36.4-46.3) fL RDW Coeff of Dean 17.2 H (11.5-14.5) % Plt Count 90 L (130-400) K/uL MPV 11.4 (9.4-12.4) fL PT 18.0 H (9.0-12.0) Seconds INR 1.7 H (0.9-1.1) Sodium 133 L (136-145) mmol/L Potassium 4.7 (3.5-5.1) mmol/L Chloride 105 (98-107) mmol/L Carbon Dioxide 25 (21-32) mmol/L Anion Gap 3 (3-11) BUN 21 (6-23) mg/dl Creatinine 0.79 (0.6-1.4) mg/dl Est Cr Clr Drug Dosing 129.4 ml/min Est GFR ( Amer) 112.3 ml/min Est GFR (Non-Af Amer) 96.9 ml/min BUN/Creatinine Ratio 26.6 H (10-20) Glucose 204 H (70-99(Fasting)) mg/dl Calcium 8.4 L (8.6-10.3) mg/dl Phosphorus 2.2 L (2.5-4.9) mg/dl Magnesium 2.0 (1.7-2.4) mg/dl Total Bilirubin 3.6 H (0.2-1.0) mg/dl AST 50 H (13-39) U/L ALT 14 (7-52) U/L Alkaline Phosphatase 104 (34-104) U/L Total Protein 5.9 L (6.0-8.3) gm/dl Albumin 2.9 L (3.4-5.0) gm/dl Globulin 3.0 (2.5-4.0) gm/dl Albumin/Globulin Ratio 1.0 (0.9-2) Medications Administered Current Inpatient Medications Acetaminophen (Acetaminophen 500 Mg Tab) 500 mg PO Q6H PRN PRN Reason: Pain/Fever Stop: 01/14/23 19:59 Bacitracin (Bacitracin Oint 14 Gm Tube) 1 appln EXT BID CYNTHIA Stop: 01/15/23 20:59 Last Admin: 12/17/22 09:02 Dose: 1 appln Ceftriaxone Sodium 2,000 mg/ (Dextrose) 70 mls @ 140 mls/hr IV DAILY@1600 [facility] Stop: 12/27/22 15:59 Last Infusion: 12/16/22 16:34 Dose: Infused Metronidazole (Flagyl) 500 mg in 100 mls @ 100 mls/hr IV Q8H [facility]; Protocol Stop: 12/26/22 18:59 Last Infusion: 12/17/22 04:35 Dose: Infused Nitroglycerin (Nitroglycerin Sl 0.4 Mg/Tab Tab) 0.4 mg SL Q5M PRN PRN Reason: Chest Pain Stop: 01/11/23 04:19 Pregabalin (Pregabalin 25 Mg Cap) 25 mg PO BID CYNTHIA Stop: 01/15/23 20:59 Last Admin: 12/17/22 09:02 Dose: 25 mg Sodium Chloride (Sodium Chloride 0.65% Na Soln 45 Ml ([place])) 2 sprays NA Q4H PRN PRN Reason: dry nose Stop: 01/12/23 22:57
[2022-12-17 10:32] LABS: Hematocrit (blood only) 23.4 % (42.0-52.0); Hemoglobin 7.5 g/dl (14.0-18.0); Mean Corpuscular Hemoglobin 29.4 pg (25.0-34.0); Mean Corpuscular Hgb Conc 32.1 g/dL (32.0-36.0); Mean Corpuscular Volume 91.8 fL (80.0-100.0); Mean Platelet Volume 11.4 fL (9.4-12.4); Platelet Count 90 K/uL (130-400); RDW Coefficient of Variation 17.2 % (11.5-14.5); RDW Standard Deviation 57.4 fL (36.4-46.3); Red Blood Count 2.55 M/uL (4.70-6.10); White Blood Count 11.38 K/ul (4.8-10.8)
[2022-12-17 10:45] LABS: Albumin Level 2.9 gm/dl (3.4-5.0); BUN Creatinine Ratio 26.6 (10-20); Bilirubin,Total 3.6 mg/dl (0.2-1.0); Calcium 8.4 mg/dl (8.6-10.3); Creatinine Clr Calc Pharmacy 129.4 ml/min; Est GFR (African American) 112.3 ml/min; Est GFR (Non-African American) 96.9 ml/min; Phosphorus 2.2 mg/dl (2.5-4.9); Potassium 4.7 mmol/L (3.5-5.1); Total Protein 5.9 gm/dl (6.0-8.3)
[2022-12-17 10:54] LABS: INR 1.7 (0.9-1.1)
[2022-12-17] MEDS: cefTRIAXone SODIUM 2,000 MG in DEXTROSE 5% 50 ML IV SCH (16:26)
[2022-12-18] MEDS: metroNIDAZOLE 500 MG/100 ML BAG IV SCH ×3 (03:16→21:05)
[2022-12-18 07:47] LABS: Hematocrit (blood only) 22.1 % (42.0-52.0); Hemoglobin 7.3 g/dl (14.0-18.0); Mean Corpuscular Hemoglobin 29.4 pg (25.0-34.0); Mean Corpuscular Volume 89.1 fL (80.0-100.0); Platelet Count 86 K/uL (130-400); RDW Coefficient of Variation 17.4 % (11.5-14.5); Red Blood Count 2.48 M/uL (4.70-6.10)
[2022-12-18 08:02] LABS: INR 1.7 (0.9-1.1)
[2022-12-18 08:05] LABS: Albumin Globulin Ratio 0.9 (0.9-2); Albumin Level 2.8 gm/dl (3.4-5.0); BUN Creatinine Ratio 27.4 (10-20); Bilirubin,Total 3.2 mg/dl (0.2-1.0); Calcium 8.3 mg/dl (8.6-10.3); Creatinine Clr Calc Pharmacy 140.1 ml/min; Est GFR (Non-African American) 100.1 ml/min; Globulin 3.1 gm/dl (2.5-4.0); Magnesium 1.8 mg/dl (1.7-2.4); Phosphorus 2.5 mg/dl (2.5-4.9); Potassium 4.9 mmol/L (3.5-5.1); Total Protein 5.9 gm/dl (6.0-8.3)
--- NOTE | 2022-12-18 09:08 | Hospitalist Progress Note ---
Date of Service December 18, 2022 Assessment & Plan (1) Acute hyponatremia: (2) OMAIRA (acute kidney injury): (3) Bacteremia: Plan: 62 yo M with portal hypertension, alcoholic cirrhosis of liver with ascites, iron deficiency anemia, history of cocaine abuse, states he did drink alcohol last 1 year, having shingles in left lower rib cage extending to the back since last 1 month comes because of frequent falls, pain from his shingles and abdominal discomfort and found to have hyponatremia and leukocytosis. Gram-positive bacteremia 62 yo M with history of decompensated liver cirrhosis presents with fall and abdominal discomfort History of singles since last 1 month. Reports history of rubbing cocaine on the wound. Also reports self extracting his tooth a couple of weeks ago. Hypotensive on arrival 4 out of 4 blood culture positive for gram-positive cocci in chains; blood culture positive for Streptococcus agalactiae (Group B strep) Leukocytosis present Underwent diagnostic paracentesis in a 12/13/2022; Labs reviewed Total WBC count up 237 with 61% neutrophils. Not suggestive of SBP. The likely source of his bacteremia is probably from his tooth. He is improving on ceftriaxone. Repeat blood culture from 12/13 - positive for Group B strep, the rest negative so far. Blood cultx from 12/16 thus far negative Transthoracic echocardiogram done; no findings suggestive of vegetation. Infectious disease consulted and recommend a ANGIE which cannot safely be performed given esophageal varices and anemia Cardiology repeated TTE with closer visualization of the valves - no vegetations reported. Acute kidney injury Likely secondary to sepsis/diuretics use. Diuretics were held and kidney injury is resolved to baseline creatinine. Hyponatremia Nephrology consulted and continued on fluid restriction and low-sodium diet. Improved to 134 Shingles Pain control. Alcoholic liver cirrhosis, decompensated Hold diuretics given OMAIRA, sepsis Elevated LFTs present GI saw patient and recommends there was no evidence of SBP to explain his group B strep bacteremia. Current MELD score 20, cont. to monitor History of iron deficiency anemia and ACD Hct <20 and patient is fatigued and run down. Denies SOB or chest pain. Transfused 1 unit of blood with good result. Thrombocytopenia Secondary to decompensated liver cirrhosis. chronic, stable. No evidence of active bleeding. DVT prophylaxis SCDs given thrombocytopenia and anemia requiring transfusion Disposition telemetry floor. He continues to be hospitalized for sepsis requiring IV antibiotics. Full code Admission and Anticipated Discharge Date Admission Date: December 12, 2022 Subjective 62 yo M with history of decompensated alcoholic cirrhosis complicated by nonbleeding varices and ascites on diuretics presented with low sodium, falls and found to have gram-positive bacteremia. reports still feeling poorly , feels tired, says he can't sleep here at night previously found unresponsive evening with drugs in his room. and Narcan required Currently laying in bed in [facility], denies fever, chills, chest pain or shortness of breath, also denies abdominal pain. Has some R hip discomfort but says it's improving. Review of Systems Review of Systems: All systems reviewed & are unremarkable except as noted in Subjective Physical Exam Physical Exam: CONSTITUTIONAL: obese M in NAD EYES: normal conjunctivae, no scleral icterus ENT: external ear and nose normal, MMM NECK: trachea midline RESPIRATORY: clear to auscultation bilaterally, no crackles, rales or wheezes, normal respiratory effort CARDIOVASCULAR: regular rate and rhythm, no murmurs CHEST: inspection of chest normal GASTROINTESTINAL: soft, nontender, protuberant, ND, no guarding MUSCULOSKELETAL: head is normocephalic and atraumatic, moves extremities SKIN: warm and dry NEUROLOGIC: alert and oriented, answers appropriately, normal speech, movs extremities Results & Data Results & Data Vital Signs (Past 12 Hours) Vital Signs Temp Pulse Resp BP Pulse Ox O2 Del Method 12/18/22 07:08 36.8 C 79 18 145/73 H 98 Room Air 12/17/22 23:05 Room Air Laboratory Results 12/18/22 12/18/22 12/18/22 Range/Units 07:02 07:02 07:02 WBC 11.70 H (4.8-10.8) K/ul RBC 2.48 L (4.70-6.10) M/uL Hgb 7.3 L (14.0-18.0) g/dl Hct 22.1 L (42.0-52.0) % MCV 89.1 (80.0-100.0) fL MCH 29.4 (25.0-34.0) pg MCHC 33.0 (32.0-36.0) g/dL RDW Std Deviation 56.0 H (36.4-46.3) fL RDW Coeff of Dean 17.4 H (11.5-14.5) % Plt Count 86 L (130-400) K/uL MPV 11.0 (9.4-12.4) fL PT 18.0 H (9.0-12.0) Seconds INR 1.7 H (0.9-1.1) Sodium 134 L (136-145) mmol/L Potassium 4.9 (3.5-5.1) mmol/L Chloride 107 (98-107) mmol/L Carbon Dioxide 25 (21-32) mmol/L Anion Gap 2 L (3-11) BUN 20 (6-23) mg/dl Creatinine 0.73 (0.6-1.4) mg/dl Est Cr Clr Drug Dosing 140.1 ml/min Est GFR ( Amer) 116.0 ml/min Est GFR (Non-Af Amer) 100.1 ml/min BUN/Creatinine Ratio 27.4 H (10-20) Glucose 110 H (70-99(Fasting)) mg/dl Calcium 8.3 L (8.6-10.3) mg/dl Phosphorus 2.5 (2.5-4.9) mg/dl Magnesium 1.8 (1.7-2.4) mg/dl Total Bilirubin 3.2 H (0.2-1.0) mg/dl AST 47 H (13-39) U/L ALT 11 (7-52) U/L Alkaline Phosphatase 107 H (34-104) U/L Total Protein 5.9 L (6.0-8.3) gm/dl Albumin 2.8 L (3.4-5.0) gm/dl Globulin 3.1 (2.5-4.0) gm/dl Albumin/Globulin Ratio 0.9 (0.9-2) Miscellaneous Test 12/17/22 12/17/22 12/17/22 Range/Units 10:13 10:13 10:13 WBC 11.38 H (4.8-10.8) K/ul RBC 2.55 L (4.70-6.10) M/uL Hgb 7.5 L (14.0-18.0) g/dl Hct 23.4 L (42.0-52.0) % MCV 91.8 (80.0-100.0) fL MCH 29.4 (25.0-34.0) pg MCHC 32.1 (32.0-36.0) g/dL RDW Std Deviation 57.4 H (36.4-46.3) fL RDW Coeff of Dean 17.2 H (11.5-14.5) % Plt Count 90 L (130-400) K/uL MPV 11.4 (9.4-12.4) fL PT 18.0 H (9.0-12.0) Seconds INR 1.7 H (0.9-1.1) Sodium 133 L (136-145) mmol/L Potassium 4.7 (3.5-5.1) mmol/L Chloride 105 (98-107) mmol/L Carbon Dioxide 25 (21-32) mmol/L Anion Gap 3 (3-11) BUN 21 (6-23) mg/dl Creatinine 0.79 (0.6-1.4) mg/dl Est Cr Clr Drug Dosing 129.4 ml/min Est GFR ( Amer) 112.3 ml/min Est GFR (Non-Af Amer) 96.9 ml/min BUN/Creatinine Ratio 26.6 H (10-20) Glucose 204 H (70-99(Fasting)) mg/dl Calcium 8.4 L (8.6-10.3) mg/dl Phosphorus 2.2 L (2.5-4.9) mg/dl Magnesium 2.0 (1.7-2.4) mg/dl Total Bilirubin 3.6 H (0.2-1.0) mg/dl AST 50 H (13-39) U/L ALT 14 (7-52) U/L Alkaline Phosphatase 104 (34-104) U/L Total Protein 5.9 L (6.0-8.3) gm/dl Albumin 2.9 L (3.4-5.0) gm/dl Globulin 3.0 (2.5-4.0) gm/dl Albumin/Globulin Ratio 1.0 (0.9-2) Miscellaneous Test 12/13/22 Range/Units 11:51 WBC (4.8-10.8) K/ul RBC (4.70-6.10) M/uL Hgb (14.0-18.0) g/dl Hct (42.0-52.0) % MCV (80.0-100.0) fL MCH (25.0-34.0) pg MCHC (32.0-36.0) g/dL RDW Std Deviation (36.4-46.3) fL RDW Coeff of Dean (11.5-14.5) % Plt Count (130-400) K/uL MPV (9.4-12.4) fL PT (9.0-12.0) Seconds INR (0.9-1.1) Sodium (136-145) mmol/L Potassium (3.5-5.1) mmol/L Chloride (98-107) mmol/L Carbon Dioxide (21-32) mmol/L Anion Gap (3-11) BUN (6-23) mg/dl Creatinine (0.6-1.4) mg/dl Est Cr Clr Drug Dosing ml/min Est GFR ( Amer) ml/min Est GFR (Non-Af Amer) ml/min BUN/Creatinine Ratio (10-20) Glucose (70-99(Fasting)) mg/dl Calcium (8.6-10.3) mg/dl Phosphorus (2.5-4.9) mg/dl Magnesium (1.7-2.4) mg/dl Total Bilirubin (0.2-1.0) mg/dl AST (13-39) U/L ALT (7-52) U/L Alkaline Phosphatase (34-104) U/L Total Protein (6.0-8.3) gm/dl Albumin (3.4-5.0) gm/dl Globulin (2.5-4.0) gm/dl Albumin/Globulin Ratio (0.9-2) Miscellaneous Test REPORT Medications Administered Current Inpatient Medications Acetaminophen (Acetaminophen 500 Mg Tab) 500 mg PO Q6H PRN PRN Reason: Pain/Fever Stop: 01/14/23 19:59 Bacitracin (Bacitracin Oint 14 Gm Tube) 1 appln EXT BID CYNTHIA Stop: 01/15/23 20:59 Last Admin: 12/17/22 23:05 Dose: 1 appln Ceftriaxone Sodium 2,000 mg/ (Dextrose) 70 mls @ 140 mls/hr IV DAILY@1600 CYNTHIA Stop: 12/27/22 15:59 Last Infusion: 12/17/22 16:56 Dose: Infused Metronidazole (Flagyl) 500 mg in 100 mls @ 100 mls/hr IV Q8H [facility]; Protocol Stop: 12/26/22 18:59 Last Infusion: 12/18/22 04:16 Dose: Infused Nitroglycerin (Nitroglycerin Sl 0.4 Mg/Tab Tab) 0.4 mg SL Q5M PRN PRN Reason: Chest Pain Stop: 01/11/23 04:19 Pregabalin (Pregabalin 25 Mg Cap) 25 mg PO BID CYNTHIA Stop: 01/15/23 20:59 Last Admin: 12/17/22 23:05 Dose: 25 mg Sodium Chloride (Sodium Chloride 0.65% Na Soln 45 Ml ([place])) 2 sprays NA Q4H PRN PRN Reason: dry nose Stop: 01/12/23 22:57
[2022-12-18] MEDS: PREGABALIN 25 MG CAP PO SCH ×2 (09:11→21:04)
[2022-12-18] MEDS: BACITRACIN OINT 14 GM TUBE EXT SCH ×2 (09:11→21:04)
[2022-12-18] MEDS: MAGNESIUM OXIDE 400 MG TAB PO SCH ×2 (13:52→21:05)
[2022-12-18] MEDS: cefTRIAXone SODIUM 2,000 MG in DEXTROSE 5% 50 ML IV SCH (16:15)
[2022-12-19] MEDS: metroNIDAZOLE 500 MG/100 ML BAG IV SCH ×2 (02:44→10:39)
[2022-12-19] MEDS: BACITRACIN OINT 14 GM TUBE EXT SCH (08:15)
[2022-12-19] MEDS: MAGNESIUM OXIDE 400 MG TAB PO SCH (08:16)
[2022-12-19] MEDS: PREGABALIN 25 MG CAP PO SCH (08:23)
[2022-12-19 08:47] LABS: Hematocrit (blood only) 23.3 % (42.0-52.0); Hemoglobin 7.4 g/dl (14.0-18.0); Mean Corpuscular Hemoglobin 29.4 pg (25.0-34.0); Mean Corpuscular Hgb Conc 31.8 g/dL (32.0-36.0); Mean Corpuscular Volume 92.5 fL (80.0-100.0); Mean Platelet Volume 10.9 fL (9.4-12.4); Platelet Count 91 K/uL (130-400); RDW Coefficient of Variation 17.5 % (11.5-14.5); RDW Standard Deviation 58.8 fL (36.4-46.3); Red Blood Count 2.52 M/uL (4.70-6.10); White Blood Count 9.48 K/ul (4.8-10.8)
[2022-12-19 08:52] LABS: Albumin Globulin Ratio 0.8 (0.9-2); Albumin Level 2.6 gm/dl (3.4-5.0); BUN Creatinine Ratio 26.4 (10-20); Bilirubin,Total 3.3 mg/dl (0.2-1.0); Calcium 8.3 mg/dl (8.6-10.3); Est GFR (African American) 116.7 ml/min; Est GFR (Non-African American) 100.7 ml/min; Globulin 3.3 gm/dl (2.5-4.0); Magnesium 1.8 mg/dl (1.7-2.4); Phosphorus 2.7 mg/dl (2.5-4.9); Potassium 4.7 mmol/L (3.5-5.1); Total Protein 5.9 gm/dl (6.0-8.3)
[2022-12-19 09:07] LABS: INR 1.7 (0.9-1.1); Prothrombin Time 18.2 Seconds (9.0-12.0)
[2022-12-19] MEDS ORDERED: SPIRONOLACTONE 100 MG TAB PO ONE (09:52)
[2022-12-19] MEDS ORDERED: FUROSEMIDE 40 MG TAB PO ONE (09:52)
--- NOTE | 2022-12-19 09:53 | Hospitalist Progress Note ---
Date of Service December 19, 2022 Assessment & Plan (1) Acute hyponatremia: (2) OMAIRA (acute kidney injury): (3) Bacteremia: Plan: 62 yo M with portal hypertension, alcoholic cirrhosis of liver with ascites, iron deficiency anemia, history of cocaine abuse, states he did drink alcohol last 1 year, having shingles in left lower rib cage extending to the back since last 1 month comes because of frequent falls, pain from his shingles and abdominal discomfort and found to have hyponatremia and leukocytosis. Group B strep bacteremia 62 yo M with history of decompensated liver cirrhosis presents with fall and abdominal discomfort History of shingles since last 1 month. Reports history of rubbing cocaine on the wound. Also reports self extracting his tooth a couple of weeks ago. Hypotensive on arrival 4 out of 4 blood culture positive for gram-positive cocci in chains; blood culture positive for Streptococcus agalactiae (Group B strep) Leukocytosis present Underwent diagnostic paracentesis in a 12/13/2022; Labs reviewed Total WBC count up 237 with 61% neutrophils. Not suggestive of SBP. The likely source of his bacteremia is probably from his tooth. He is improving on ceftriaxone with flagyl added after fact CT revealed periodontal abscess and dental caries. No tooth discomfort per patient. Repeat blood cultures are negative Transthoracic echocardiogram done; no findings suggestive of vegetation. Infectious disease consulted and recommend a ANGIE which cannot safely be performed given esophageal varices and anemia Cardiology repeated TTE with closer visualization of the valves - no vegetations reported. Leukocytosis resolved and he is clinically improved. Will get a peripheral guided US line in anticipation of IV abx. Awaiting updated ID recommendations. Acute kidney injury Likely secondary to sepsis/diuretics use. Diuretics were held and kidney injury is resolved to baseline creatinine. Resarting lasix 40/spironolactone 100mg now. Hyponatremia Nephrology consulted and continued on fluid restriction and low-sodium diet. Improved to 134 Shingles Pain control with Lyrica 25mg PO BID. Cont bacitracin on the wound until healed. Alcoholic liver cirrhosis, decompensated Initially held diuretics with OMAIRA and sepsis, but these are being restarted today because he is clinically improved. Elevated LFTs present GI saw patient and recommends there was no evidence of SBP to explain his group B strep bacteremia. Current MELD score 20, cont. to monitor with GI as outpatient. Pt has a h/o drug use and was found obtunded at one point this admission after being in the bathroom and presumably using street drugs. These were found in his bag and confiscated. He required narcan and remains improved and off prescription narcotics since that time. History of iron deficiency anemia and ACD Hct <20 and patient is fatigued and run down. Denies SOB or chest pain. Transfused 1 unit of blood with good result. Hb 7.3 at time of discharge. Repeat CBC recommended at followup Thrombocytopenia Secondary to decompensated liver cirrhosis. chronic, stable. No evidence of active bleeding. DVT prophylaxis SCDs given thrombocytopenia and anemia requiring transfusion Disposition-patient requesting to go home today. Ordered peripheral US guided l ine in anticipation for IV Rocephin going home. Flagyl will continue as oral. Awaiting ID updated recs. Appreciate case management assistance with home health set up. Full code I spent a total [id number] coordinating, documenting, and providing care for this patient excluding time spent in the performance of separately billed services Diane Farris DO [facility] Hospitalist Admission and Anticipated Discharge Date Admission Date: December 12, 2022 Subjective 62 yo M with history of decompensated alcoholic cirrhosis complicated by nonbleeding varices and ascites on diuretics presented with low sodium, falls and found to have gram-positive bacteremia. previously found unresponsive evening with drugs in his room. and Narcan required this admission no mention of pain today only some soreness in his backside he told me he can't sleep here and will be leaving today I apprised him that I will do my best to get everything set up shingles rash still itches him somewhat but is improved. Physical Exam Physical Exam: CONSTITUTIONAL: morbid obesity, vitals as above, generally well-appearing, NAD EYES: normal conjunctivae, no scleral icterus ENT: external ear and nose normal, MMM NECK: trachea midline RESPIRATORY: clear to auscultation bilaterally, no crackles, rales or wheezes, normal respiratory effort CARDIOVASCULAR: regular rate and rhythm, S1 and 2 heard without murmurs, gallops or rubs, no JVD, no peripheral edema CHEST: inspection of chest was normal GASTROINTESTINAL: soft, nontender, protuberant, ND, no guarding MUSCULOSKELETAL: strength 5/5 throughout, head is normocephalic and atraumatic SKIN: warm and dry NEUROLOGIC: CN 2-12 grossly intact, no sensory deficit, normal cognition, normal speech, no tremor PSYCHIATRIC: alert cooperative and oriented to person, place and time. Results & Data Results & Data Vital Signs (Past 12 Hours) Vital Signs Temp Pulse Resp BP Pulse Ox O2 Del Method 12/19/22 07:54 36.9 C 76 16 132/78 97 Room Air Laboratory Results Short CBC 12/19/22 Range/Units 07:43 WBC 9.48 (4.8-10.8) K/ul Hgb 7.4 L (14.0-18.0) g/dl Hct 23.3 L (42.0-52.0) % Plt Count 91 L (130-400) K/uL BMP 12/19/22 07:43 Sodium 134 L Potassium 4.7 Chloride 107 Carbon Dioxide 24 BUN 19 Creatinine 0.72 Glucose 101 H Calcium 8.3 L Liver Function 12/19/22 Range/Units 07:43 Total Bilirubin 3.3 H (0.2-1.0) mg/dl AST 39 (13-39) U/L ALT 8 (7-52) U/L Alkaline Phosphatase 96 (34-104) U/L Albumin 2.6 L (3.4-5.0) gm/dl Medications Administered Current Inpatient Medications Acetaminophen (Acetaminophen 500 Mg Tab) 500 mg PO Q6H PRN PRN Reason: Pain/Fever Stop: 01/14/23 19:59 Bacitracin (Bacitracin Oint 14 Gm Tube) 1 appln EXT BID PENDING SALE TO [facility] Stop: 01/15/23 20:59 Last Admin: 12/19/22 08:15 Dose: 1 appln Ceftriaxone Sodium 2,000 mg/ (Dextrose) 70 mls @ 140 mls/hr IV DAILY@1600 PENDING SALE TO [facility] Stop: 12/27/22 15:59 Last Infusion: 12/18/22 17:00 Dose: Infused Metronidazole (Flagyl) 500 mg in 100 mls @ 100 mls/hr IV Q8H PENDING SALE TO [facility]; Protocol Stop: 12/26/22 18:59 Last Infusion: 12/19/22 03:44 Dose: Infused Magnesium Oxide (Magnesium Oxide 400 Mg Tab) 400 mg PO BID PENDING SALE TO [facility] Stop: 01/17/23 11:44 Last Admin: 12/19/22 08:16 Dose: 400 mg Nitroglycerin (Nitroglycerin Sl 0.4 Mg/Tab Tab) 0.4 mg SL Q5M PRN PRN Reason: Chest Pain Stop: 01/11/23 04:19 Pregabalin (Pregabalin 25 Mg Cap) 25 mg PO BID CYNTHIA Stop: 01/15/23 20:59 Last Admin: 12/19/22 08:23 Dose: 25 mg Sodium Chloride (Sodium Chloride 0.65% Na Soln 45 Ml ([place])) 2 sprays NA Q4H PRN PRN Reason: dry nose Stop: 01/12/23 22:57
--- NOTE | 2022-12-19 10:45 | Discharge Summary ---
Discharge Summary Date of Service December 19, 2022 Notes For Next Care Provider Bacteremia with need for abx for 4 weeks Could not discharge with IV line in place given h/o substance abuse During this admission patient was found unresponsive and required narcotics Found to have drugs in his bag which was confiscated reportedly has an 11 yo child at home, his son. 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 Medication Changes From Visit Rocephin 2mg IM daily x 22 more doses after discharge (total 4 week course) To be given at [facility] Lyrica 25mg PO BID Flagyl 500mg PO TID Admission HPI Per Admitting Provider 62-year-old male past med significant for portal hypertension, alcoholic cirrhosis of liver with ascites, iron deficiency anemia, history of cocaine abuse, states last drink alcohol 1 year ago, having shingles in left lower rib cage extending to the back since last 1 month comes because of frequent falls and pain from his shingles and abdominal discomfort. Says he is falling frequently at home, ambulates with a cane. Denies any fevers. Denies any blood in stools. Says the stools are black because on iron pills. Micturating okay. Denies any chest pain or shortness of breath. No nausea. No headache. Vision is okay. No cough or sore throat. Patient is moaning and when asked why he states he is hurting all over and especially at shingles site . Past medical history as mentioned above Past surgical history colonoscopy, EGD Social history quit smoking in 1999 as per records. Says not drinking alcohol since last 1 year as per patient history of cocaine use. Family history no family history on file Principal Dx & Hospital Course #1 = Principal Diagnosis (1) Acute hyponatremia: (2) OMAIRA (acute kidney injury): (3) Bacteremia: 62 yo M with portal hypertension, alcoholic cirrhosis of liver with ascites, iron deficiency anemia, history of cocaine abuse, states he did drink alcohol last 1 year, having shingles in left lower rib cage extending to the back since last 1 month comes because of frequent falls, pain from his shingles and abdominal discomfort and found to have hyponatremia and leukocytosis. Group B strep bacteremia 62 yo M with history of decompensated liver cirrhosis presents with fall and abdominal discomfort History of shingles since last 1 month. Reports history of rubbing cocaine on the wound. Also reports self extracting his tooth a couple of weeks ago. Hypotensive on arrival 4 out of 4 blood culture positive for gram-positive cocci in chains; blood culture positive for Streptococcus agalactiae (Group B strep) Leukocytosis present Underwent diagnostic paracentesis in a 12/13/2022; Labs reviewed Total WBC count up 237 with 61% neutrophils. Not suggestive of SBP. The likely source of his bacteremia is probably from his tooth. He is improving on ceftriaxone with flagyl added after fact CT revealed periodontal abscess and dental caries. No tooth discomfort per patient. Repeat blood cultures are negative Transthoracic echocardiogram done; no findings suggestive of vegetation. Infectious disease consulted and recommend a ANGIE which cannot safely be performed given esophageal varices and anemia Cardiology repeated TTE with closer visualization of the valves - no vegetations reported. Leukocytosis resolved and he is clinically improved. Will get a peripheral guided US line in anticipation of IV abx. Awaiting updated ID recommendations. Acute kidney injury Likely secondary to sepsis/diuretics use. Diuretics were held and kidney injury is resolved to baseline creatinine. Resarting lasix 40/spironolactone 100mg now. Hyponatremia Nephrology consulted and continued on fluid restriction and low-sodium diet. Improved to 134 Shingles Pain control with Lyrica 25mg PO BID. Cont bacitracin on the wound until healed. Alcoholic liver cirrhosis, decompensated Initially held diuretics with OMAIRA and sepsis, but these are being restarted today because he is clinically improved. Elevated LFTs present GI saw patient and recommends there was no evidence of SBP to explain his group B strep bacteremia. Current MELD score 20, cont. to monitor with GI as outpatient. Pt has a h/o drug use and was found obtunded at one point this admission after being in the bathroom and presumably using street drugs. These were found in his bag and confiscated. He required narcan and remains improved and off prescription narcotics since that time. History of iron deficiency anemia and ACD Hct <20 and patient is fatigued and run down. Denies SOB or chest pain. Transfused 1 unit of blood with good result. Hb 7.3 at time of discharge. Repeat CBC recommended at followup Thrombocytopenia Secondary to decompensated liver cirrhosis. chronic, stable. No evidence of active bleeding. DVT prophylaxis SCDs given thrombocytopenia and anemia requiring transfusion Disposition-patient requesting to go home today. Ordered peripheral US guided line in anticipation for IV Rocephin going home. Flagyl will continue as oral. Awaiting ID updated recs. Appreciate case management assistance with home health set up. Full code I spent a total [id number] coordinating, documenting, and providing care for this patient excluding time spent in the performance of separately billed services. I did communicate with infectious disease specialist who recommended 4 weeks of ceftriaxone for bacteremia. I communicated with the IV team and case management. Per case management patient is not going to be able to receive antibiotic services given his history of drug abuse. Therefore, we had to abort the idea of discharging him with an IV line in place. communication and outreach manager set him up for once daily Rocephin to complete his treatment at [facility]. Weekly lab work will be sent to primary care doctor. He will continue a short course of Flagyl as noted above. I did attempt to contact his daughter who was not answering her phone. Diane Farris DO [facility] Hospitalist Discharge Exam CONSTITUTIONAL: morbid obesity, vitals as above, generally well-appearing, NAD EYES: normal conjunctivae, no scleral icterus ENT: external ear and nose normal, MMM NECK: trachea midline RESPIRATORY: clear to auscultation bilaterally, no crackles, rales or wheezes, normal respiratory effort CARDIOVASCULAR: regular rate and rhythm, S1 and 2 heard without murmurs, gallops or rubs, no JVD, no peripheral edema CHEST: inspection of chest was normal GASTROINTESTINAL: soft, nontender, protuberant, ND, no guarding MUSCULOSKELETAL: strength 5/5 throughout, head is normocephalic and atraumatic SKIN: warm and dry NEUROLOGIC: CN 2-12 grossly intact, no sensory deficit, normal cognition, normal speech, no tremor PSYCHIATRIC: alert cooperative and oriented to person, place and time. Updated Medication List Medication Instructions Recorded Confirmed Type furosemide 40 mg tablet 40 mg PO QAM 12/12/22 12/12/22 History hydrocodone 5 mg-acetaminophen 325 1 tab PO Q6H PRN Pain 12/12/22 12/12/22 History mg tablet spironolactone 100 mg tablet 100 mg PO QAM 12/12/22 12/12/22 History ceftriaxone 2 gram solution for 2 g IM DAILY #22 ea 12/19/22 Rx injection metronidazole 500 mg tablet 500 mg PO Q8H #21 tabs 12/19/22 Rx pregabalin 25 mg capsule (Lyrica) 25 mg PO BID #60 caps 12/19/22 Rx Hospital Stay Data Consultations 12/12/22 01:19 ED Decision to Admit Stat 12/12/22 08:00 Consult Gastroenterology Routine Consult Nephrology Routine 12/13/22 11:53 Consult Infectious Diseases Routine Diagnostic Imagining Performed 12/11/22 23:37 CT abd pelvis wo con Stat CT cervical spine wo con Stat CT chest diagnostic wo con Stat CT head/brain wo con Stat 12/13/22 07:00 IR paracentesis abd w/img US Routine 12/15/22 21:11 CT facial bones w con Routine 12/19/22 09:53 US guide vascular access Routine Pending Results Patient Have Any Pending Studies at Discharge: No Discharge Instructions Given to Patient (Per Discharging Provider) Please take all medications as instructed on discharge list below. It is recommended that you follow-up with your primary care doctor within 1 week of discharge from the hospital to repeat lab work and ensure you are doing well after returning home. You were found to have bacteria in your blood and are being placed on once daily antibiotics for a total of 4 weeks with 3 weeks remaining at time of discharge. Lab work will need to be drawn weekly and sent to your primary care doctor for review. You were found to have dental disease that is severe including a periodontal abscess on your right second mandibular molar. Follow-up with outpatient oral maxillofacial surgery as recommended. You will complete a short course of Flagyl antibiotic taken in addition with your intravenous antibiotic for your blood infection. Follow-up with the outpatient wound care clinic as recommended to help with treatment of your right great toe ulcer. For pain control with your shingles rash you were started on Lyrica 25 mg by mouth twice daily. Please continue with this until your shingles rash is completely resolved and your pain has resolved. Please continue [id number] bacitracin or petroleum jelly on the wound until healed. This should help with itching. Please ensure you keep the wound clean and dry. Please follow-up with [facility] gastroenterology regarding your underlying alcoholic liver cirrhosis. Continue diuretics as previously instructed. You do have fluid in your abdomen which may ultimately need to be removed. Close follow-up is recommended. You have anemia for multiple reasons and hemoglobin at time of discharge was 7.4. You were transfused 1 unit of blood during her hospital stay. Follow-up complete blood count to monitor your anemia is recommended. This can be performed on follow-up with your primary care doctor. Recreational drug use is strongly discouraged. Strict alcohol cessation encouraged. It was a pleasure taking care of you! Please call if you have any questions or problems. You can reach a [facility] hospitalist on duty at [facility] 24 hours a day by calling [phone]. Take care of yourself. Diane Farris, [facility]byterian[facility] Total Time Total Time Spent Total Time Spent (In Minutes): 60
[2022-12-19] MEDS: cefTRIAXone SODIUM 2,000 MG in DEXTROSE 5% 50 ML IV SCH (15:07)
== END 2022-12-19 16:47 | disposition home or self-care (01) | DRG 871 ==
LOC: ED 22:01 → EDINP 12-12 03:37 → SUATTDRO 12-12 03:37 → 4W 12-12 04:20 → 3N 12-16 13:09